=== PATIENT | female | born 1955 | race African-American/Black ===

== ENCOUNTER 2016-11-20 08:15 | Inpatient (IN) | payer OTHER, MEDICAID ==
--- NOTE | 2016-11-20 08:27 | CPEKG ---
Heart Rate: 83 RR Interval: 723 P-R Interval: 204 QRSD Interval: 92 QT Interval: 404 QTC Interval: 475 P [place]: 38 QRS [place]: -20 T Wave [place]: 63 EKG Severity - ABNORMAL ECG - EKG Impression: SINUS RHYTHM EKG Impression: LEFT VENTRICULAR HYPERTROPHY Electronically Signed By: Meredith Lemus 20-Nov-2016 14:56:56
[2016-11-20 08:56] LABS: % IMMATURE GRANULYOCYTES 2.1 % (0.0-1.1); ABSOLUTE IMMATURE GRANULOCYTES 0.11 10^3/uL (0.00-0.10); ADD DIFF? NO; ADD MORPH? NO; ADD SCAN? NO; ATYPICAL LYMPHOCYTE FLAG 10 (0-99); FRAGMENT RBC FLAG 0 (0-99); HEMATOCRIT 37.6 % (38.0-47.0); HEMOGLOBIN 12.6 g/dL (12.6-16.3); LEFT SHIFT FLG 20 (0-99); LIPEMIA HEMOLYSIS FLAG 80 (0-99); MEAN CELL HEMOGLOBIN 29.2 pg (27.9-34.1); MEAN CELL HEMOGLOBIN CONCENTR. 33.5 g/dL (32.4-36.7); MEAN CELL VOLUME 87.2 fL (81.5-99.8); MEAN PLATELET VOLUME 10.6 fL (8.7-11.7); PLATELET CLUMPS FLAG 10 (0-99); PLATELET COUNT 194 10^3/uL (150-400); RED BLOOD CELL COUNT 4.31 10^6/uL (4.18-5.33); RED CELL DISTRIBUTION WIDTH 13.1 % (11.5-15.2)
--- NOTE | 2016-11-20 08:56 | EDPHY ---
H & P Time Seen by Provider: 11/20/16 08:52 HPI/ROS: CHIEF COMPLAINT: Chest pain HISTORY OF PRESENT ILLNESS: This patient is a 61 year old woman, with a history of mild non-obstructive CAD, non-ischemic cardiomyopathy, and ICD placement in 2004, presenting with one week of constant substernal chest pain, radiating to the left axilla. It is associated with shortness of breath and increased lower extremity edema. She gets fatigued easily and dyspneic with exertion, which is not a recent change for her. Additionally notes that it feels that her ICD is very mildly "zapping" her today. These symptoms started to concern her and made her afraid today, which is why she presented to the emergency department. REVIEW OF SYSTEMS: Constitutional: No fever, no chills Eyes: No visual changes ENT: No sore throat Respiratory: Shortness of breath, No cough Cardiac: chest pain Gastrointestinal: No nausea, no vomiting, no abdominal pain Genitourinary: No hematuria, no dysuria Musculoskeletal: Lower extremity edema Skin: No rash Neurological: No headache, no numbness, no weakness Psychiatric: No depression Past Medical/Surgical History: Mild non-obstructive CAD by [facility] in 12/2012, non-ischemic cardiomyopathy (last echocardiogram in 04/2014 showed EF of 45%), ICD placement in 2004 (with EF of 10% at that time), hypertension, hyperlipidemia, mild pulmonary hypertension, chronic kidney disease (III), history of steroid-induced diabetes, diverticulitis, remote history of alcohol abuse Social History: Smokes cigarettes, 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 Smoking Status: Light smoker Physical Exam: General Appearance: Alert, no distress Eyes: Pupils equal and round, no conjunctival pallor or injection ENT, Mouth: Mucous membranes moist Neck: Normal inspection Respiratory: Lungs are clear to auscultation Cardiovascular: Regular rate and rhythm Gastrointestinal: Abdomen is soft and non- tender Neurological: A&O, nonfocal, normal gait Skin: Warm and dry, no rash Extremities: Nontender, no pedal edema Psychiatric: Mood and affect normal Constitutional: Initial Vital Signs Temperature (C) 36.9 C 11/20/16 08:29 Heart Rate 86 11/20/16 08:29 Respiratory Rate 16 11/20/16 08:29 Blood Pressure 156/120 H 11/20/16 08:29 O2 Sat (%) 94 11/20/16 08:29 O2 Delivery Mode Nasal Cannula O2 (L/minute) 2 Allergies/Adverse Reactions: ketorolac tromethamine [From Toradol] Allergy (Severe, Verified 12/11/15 06:01) tramadol Allergy (Verified 12/11/15 06:01) Home Medications: Medication Instructions Recorded Bumetanide [Bumex (*)] 0.5 mg PO DAILY@12 06/29/14 Carvedilol [Coreg (*)] 25 mg PO BID 06/29/14 Nitroglycerin [Nitrostat 0.4 mg 0.4 mg SL DAILY PRN 06/29/14 (*)] Simvastatin [Zocor 20 mg] 20 mg PO HS 06/29/14 amLODIPine BESYLATE [Norvasc 5 mg 5 mg PO HS 06/29/14 (*)] Aspirin EC [Aspirin EC 81 mg (*)] 81 mg PO DAILY PRN 11/20/16 Febuxostat [Uloric] 40 mg PO HS 11/20/16 Herbals/Supplements -Info Only 1 ea PO DAILY 11/20/16 Indomethacin [Indocin 25 mg (*)] 50 mg PO TID PRN 11/20/16 Lisinopril [Zestril 2.5 mg (*)] 2.5 mg PO HS 11/20/16 Medical Decision Making - Diagnostics EKG Interpretation: The 12 lead EKG was interpreted by myself. Sinus rhythm, rate 83, LVH. See hard copy and/or "tracemaster" electronic copy for interpretation. Imaging: Study: PA and Lateral Chest X-ray Indication: Chest pain Results: I viewed the images myself on the PACS system. My interpretation of the images is: No acute findings. The radiologist interpretation is: Radiographically unchanged from June 01, 2014 ED Course/Re-evaluation: Clinical presentation concerning for acute coronary syndrome and/or pacemaker malfunction. IV established. Placed on brake lining curer. [facility] has been called to interrogate her device. Plan to admit patient for chest pain and worsening CHF symptoms. 0945: I consulted with the hospitalist service. Dr. Mae accepts admission. Pacemaker interrogation reveals that the pacemaker is working normally. The patient has had a few runs of narrow complex tachycardia, otherwise normal. Differential Diagnosis: Differential diagnosis includes though it is not limited to pneumonia, pneumothorax, pulmonary embolism, aortic dissection, pericarditis, acute coronary syndrome. - Data Points Laboratory Results: Laboratory Results 11/20/16 08:45 11/21/16 04:15 11/21/16 04:15 Alkaline Phosphatase 47 IU/L (38-126) Medications Given: Discontinued Medications Furosemide (Lasix Injection) 10 mg IVP ONCE ONE Stop: 11/21/16 19:51 Last Admin: 11/21/16 20:30 Dose: 10 mg Departure - Departure Disposition: [facility] Inpatient Acute Clinical Impression: NICM (nonischemic cardiomyopathy) Congestive heart failure Qualifiers: Congestive heart failure type: systolic Congestive heart failure chronicity: chronic Qualifier Code: (I50.22) Chronic systolic (congestive) heart failure Chest pain Qualifiers: Chest pain type: other chest pain Qualifier Code: (R07.89) Other chest pain Condition: Fair Report Scribed for: Meredith Lemus Report Scribed by: Meena Adams Date of Report: 11/20/16 Time of Report: 08:56 Physician Review and Approval Statement: 11/20/16 08:56 Portions of this note were transcribed by a medical staff physician. I personally performed a history, physical exam, medical decision making, and confirmed accuracy of information the transcribed note.
[2016-11-20 09:15] LABS: ANION GAP 11 mEq/L (8-16); CARBON DIOXIDE 21 mEq/l (22-31); CHLORIDE 109 mEq/L (97-110); CREATININE 1.5 mg/dL (0.6-1.0); GLOMERULAR FILTRATION RATE 35; GLUCOSE 77 mg/dL (70-100); POTASSIUM 5.6 mEq/L (3.5-5.2); SODIUM 141 mEq/L (134-144); SPECIMEN HEMOLYSIS 151
[2016-11-20 09:26] LABS: TROPONIN I 0.025 ng/mL (0-0.034)
--- NOTE | 2016-11-20 09:32 | DX ---
PA Upright and Lateral Views of the Chest, at 8:50 a.m. Clinical History: 61-year-old female with chest pain, leg swelling, and the "pacemaker going off freq uently." Comparison Study: Chest, dated June 01, 2014. Findings: There is stable positioning of the unipolar left subclavian AICD pacemaker, terminating ove r the right ventricle. Telemetry monitoring lead lines are present. A lead shield was applied to the abdomen. The cardiac silhouette remains mildly enlarged. The plantar vasculature is normal. There is no focal alveolar consolidation, pleural effusion, peripheral interstitial edema, or pneumothorax. Th e osseous structures are age-appropriate. There is midcervical degenerative disk space narrowing with trace retrolisthesis. Impression: Radiographically unchanged from June 01, 2014.
[2016-11-20 11:23] LABS: INR 0.94 (0.83-1.16); PROTIME(PATIENT) 12.5 SEC (12.0-15.0)
[2016-11-20] MEDS ORDERED: ASPIRIN EC 81 MG TAB PO PRN (13:48)
[2016-11-20] MEDS ORDERED: NITROGLYCERIN 0.4 MG BTL SL PRN (13:48)
[2016-11-20] MEDS ORDERED: FUROSEMIDE 20 MG/2 ML VIAL IVP SCH (14:00)
--- NOTE | 2016-11-20 14:21 | CPEKG ---
Heart Rate: 78 RR Interval: 769 P-R Interval: 216 QRSD Interval: 90 QT Interval: 420 QTC Interval: 479 P [place]: 36 QRS [place]: -23 T Wave [place]: 74 EKG Severity - ABNORMAL ECG - EKG Impression: SINUS RHYTHM EKG Impression: MULTIFORM VENTRICULAR PREMATURE COMPLEXES EKG Impression: FIRST DEGREE AV BLOCK EKG Impression: PROBABLE LEFT ATRIAL ABNORMALITY EKG Impression: LVH WITH SECONDARY REPOLARIZATION ABNORMALITY Electronically Signed By: Majo Carbone 20-Nov-2016 16:48:07
--- NOTE | 2016-11-20 14:54 | ECHO ---
[id number] + + [address] : : [place] [address] : : [phone] + + Adult Echocardiographic Report + -----+ :Name: KATIE ALEXANDER DStudy Date: 11/20/2016 01:46 PM : : Hospital Admission Number: [id number] Location : 207: :: 1955 Gender: Female Height: 65 in : :Age: 61 yrs Race: BAA,Black or Delisa Weight: 155 lb : :Reason For Study: Chest pain/PMH NICM : : BSA: 1.8 meters2 : :History: Pacer : + -----+ MMode/2D Measurements & Calculations IVSd: 0.55 cm LVIDd: 6.8 cm FS: 16.9 % Ao root diam: LVPWd: 0.65 cm LVIDs: 5.6 cm EDV(Teich): 2.7 cm 238.3 ml LA dimension: ESV(Teich): 4.7 cm 156.5 ml EF(Teich): 34.3 % LVLd ap4: 7.9 cm SV(MOD-sp4): EDV(MOD-sp4): 24.0 ml 110.0 ml LVLs ap4: 7.2 cm ESV(MOD-sp4): 86.0 ml EF(MOD-sp4): 21.8 % Normal Measurement Values: + + :LVIDd (3.5-5.7cm) IVSd (0.6-1.1cm) LVPWd (0.6-1.1cm) Aortic Root (2.0-3.7cm)Left Atrium (1.5-4.0cm): :LV Vol(d) (76-115ml) LV Vol(s) (29-48ml) Ejec Fraction (50-65%)PV Dorian (0.6- 1.2m/s) TV Dorian (0.4-1.0m/s) : :MV E Dorian (0.8-1.0m/s)MV A Dorian (0.3-1.0m/s)LVOT Dorian (0.7-1.2m/s) Asc Ao Dorian ( 0.9-1.8m/s) : + + Doppler Measurements & Calculations MV E max dorian: 62.7 cm/sec Ao mean P.2 mmHg TR max dorian: 225.3 cm/sec MV A max dorian: 78.5 cm/sec Ao V2 mean: 93.8 cm/sec TR max P.3 mmHg MV E/A: 0.80 Ao V2 VTI: 26.4 cm RAP systole: 10.0 mmHg RVSP(TR): 30.3 mmHg Left Ventricle The left ventricle is moderate to severely dilated. There is mild concentric left ventricular hypertrophy. There is Doppler evidence for diastolic dysfunction. EF estimate is 30-35%. Left ventricular systolic function is moderately reduced. LV basal/mid inferoseptal and inferior avitia are akinetic. Right Ventricle The right ventricle is normal in size and function. There is a pacemaker lead in the right ventricle. Atria The left atrium is mildly dilated. Right atrial size is normal. The interatrial septum is intact with no evidence for an atrial septal defect. Mitral Valve The mitral valve is normal in structure and function. There is no evidence of mitral valve prolapse. There is no mitral valve stenosis. There is mild mitral regurgitation. Tricuspid Valve Normal tricuspid valve. There is trace to mild tricuspid regurgitation. Right ventricular systolic pressure is normal. Aortic Valve The aortic valve is trileaflet. The aortic valve opens well. There is no aortic stenosis. There is no aortic insufficiency. Pulmonic Valve The pulmonic valve is normal in structure and function. There is no pulmonic valvular regurgitation. Great Vessels The aortic root is normal size. Pericardium/Pleural Trivial anterior pericardial effusion. Conclusion A complete two-dimensional transthoracic echocardiogram was performed (2D, M-mode, Doppler and color flow Doppler). There is mild concentric left ventricular hypertrophy. There is Doppler evidence for diastolic dysfunction. LV basal/mid inferoseptal and inferior avitia are akinetic. EF estimate is 30-35%. The left ventricle is moderate to severely dilated. There is a pacemaker lead in the right ventricle. The left atrium is mildly dilated. There is mild mitral regurgitation. There is trace to mild tricuspid regurgitation. Right ventricular systolic pressure is normal. Trivial anterior pericardial effusion Left ventricular systolic function is moderately reduced. Final Reading Physician: Paulina Lamar signed on 11/20/2016 02:53 PM Ordering Physician: Patricia Richardson Performed By: Lianet Beyer, ARABELLACS
[2016-11-20 15:21] LABS: CREATINE KINASE-MB FRACTION 1.48 ng/mL (0-3.19); TROPONIN I 0.018 ng/mL (0-0.034)
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
[2016-11-20] MEDS: OXYCODONE/APAP 5/325 TAB PO PRN ×2 (17:10→23:33)
[2016-11-20] MEDS ORDERED: KETOROLAC 15 MG/1 ML SDV IVP SCH (18:00)
[2016-11-20 19:59] LABS: CREATINE KINASE-MB FRACTION 2.14 ng/mL (0-3.19); TROPONIN I < 0.012 ng/mL (0-0.034)
[2016-11-20] MEDS: CARVEDILOL 25 MG TAB PO SCH (20:34)
[2016-11-20] MEDS: amLODIPine BESYLATE 5 MG TAB PO SCH (20:35)
[2016-11-20] MEDS: LISINOPRIL 2.5 MG TAB PO SCH (20:35)
[2016-11-20] MEDS: Febuxostat [Uloric] 40 MG PO SCH (20:36)
[2016-11-21 01:22] LABS: TROPONIN I < 0.012 ng/mL (0-0.034)
[2016-11-21 05:53] LABS: ALANINE AMINOTRANSFERASE 26 IU/L (9-52); ALBUMIN 3.1 g/dL (3.5-5.0); ANION GAP 9 mEq/L (8-16); ASPARTATE AMINOTRANSFERASE 19 IU/L (14-46); BILIRUBIN,TOTAL 0.6 mg/dL (0.1-1.4); CALCIUM 8.8 mg/dL (8.5-10.4); CARBON DIOXIDE 23 mEq/l (22-31); CHLORIDE 107 mEq/L (97-110); CHOLESTEROL 209 mg/dL (140-220); CHOLESTEROL/HDL RATIO 4.02 RATIO (1.00-4.44); CREATININE 1.5 mg/dL (0.6-1.0); GLOMERULAR FILTRATION RATE 35; GLUCOSE 114 mg/dL (70-100); HIGH DENSITY LIPOPROTEIN 52 mg/dL (40-85); LDL/HDL RATIO 1.85 RATIO (1.00-3.22); LOW DENSITY LIPOPROTEIN 96 mg/dL (80-100); NON-HIGH DENSITY LIPOPROTEIN 157 mg/dL (90-129); POTASSIUM 4.6 mEq/L (3.5-5.2); SODIUM 139 mEq/L (134-144); TOTAL PROTEIN 6.4 g/dL (6.3-8.2); TRIGLYCERIDE 306 mg/dL (35-135); VERY LOW DENSITY LIPOPROTEINS 61 mg/dL (8-25)
[2016-11-21 05:54] LABS: CREATINE KINASE-MB FRACTION 1.57 ng/mL (0-3.19)
--- NOTE | 2016-11-21 08:40 | CPEKG ---
Heart Rate: 57 RR Interval: 1053 P-R Interval: 236 QRSD Interval: 90 QT Interval: 480 QTC Interval: 468 P [place]: 50 QRS [place]: -19 T Wave [place]: 24 EKG Severity - ABNORMAL ECG - EKG Impression: SINUS RHYTHM EKG Impression: FIRST DEGREE AV BLOCK EKG Impression: LEFT VENTRICULAR HYPERTROPHY EKG Impression: ANTERIOR Q WAVES, POSSIBLY DUE TO LVH Electronically Signed By: Roland Barnard 21-Nov-2016 10:53:38
[2016-11-21] MEDS ORDERED: REGADENOSON 0.4 MG/5 ML SYR IVP ONE (09:31)
[2016-11-21] MEDS: CARVEDILOL 25 MG TAB PO SCH ×2 (10:38→20:33)
[2016-11-21] MEDS: ROSUVASTATIN CALCIUM 10 MG TAB PO SCH (10:39)
[2016-11-21] MEDS: ENOXAPARIN 40 MG/0.4 ML SYR SC SCH (10:39)
--- NOTE | 2016-11-21 12:43 | HOSPPROG ---
Hospitalist Progress Note Assessment/Plan: 61 yo F w NICM here w cp syndrome, mild systolic heart failure hyperkalemia: suspect 2/2 apple cider vinegar she has been taking as natural diuretic resolved CV: on diuretics bnp near baseline known systolic dysfunction another day IN diuretics chest pain: "electric" per her AICD did not discharge, pre repport no rash to suggest zoster trop indet then neg lexiscan pending renal: cr at baseline sCHF: on pao and carvedilol proph: enox dispo: inpt Subjective: no events tele (interp by me) Objective: Vital Signs Temp Pulse Resp BP Pulse Ox 36.6 C 65 18 120/79 98 11/21/16 08:00 11/21/16 08:00 11/21/16 08:00 11/21/16 08:00 11/21/16 08:00 Laboratory Results 11/21/16 04:15 11/20/16 11/21/16 11/22/16 05:59 05:59 05:59 Intake Total 900 Output Total 1500 Balance -600 PT 12.5 SEC (12.0-15.0) 11/20/16 08:45 INR 0.94 (0.83-1.16) 11/20/16 08:45 - Physical Exam Constitutional: no apparent distress, appears nourished Eyes: PERRL, anicteric sclera Ears, Nose, Mouth, Throat: moist mucous membranes, hearing normal Cardiovascular: regular rate and rhythym, no murmur, rub, or gallop Respiratory: no respiratory distress, no rales or rhonchi Gastrointestinal: normoactive bowel sounds, soft, non-tender abdomen Genitourinary: No rojo in urethra Skin: warm, normal color Musculoskeletal: full muscle strength, no muscle tenderness Neurologic: AAOx3 Psychiatric: interacting appropriately ICD10 Worksheet Patient Problems: Problems Problem Status Diagnosed Chest pain Acute Congestive heart failure Acute NICM (nonischemic cardiomyopathy) Acute Cardiomyopathy due to hypertension Acute Hypertension Acute Ventricular arrhythmia Acute
--- NOTE | 2016-11-21 19:02 | NM ---
Nuclear Medicine Myocardial Perfusion Stress and Rest Imaging made available for review 11/21/2016 at 1 848 hours History: Chest pain. Comparison: Myocardial perfusion scan December 19, 2012 Technique: Rest imaging is performed after the intravenous administration of 10.8 mCi of technetiu m 99m labeled sestamibi on November 21, 2016 at 914. Stress imaging is performed after the intravenous administration of 26.8 mCi of technetium 99m labeled sestamibi on November 21, 2016 at 957. Resting h eart rate was 60 and maximal heart rate of 85 was attained. 0.4 mg of Lexiscan was administered with out complication. Images are reviewed on the independent nuclear medicine work station, computer sana lysis is performed. Findings: The left ventricular ejection fraction is 45% (unchanged). A large inferolateral perfusio n defect is fixed. There is a small fixed anteroseptal defect near the apex. Comparison of these infa rcts with the previous study is limited by variation in scanner. There is no evidence of reversible h ypoperfusion to suggest ischemia. Hypokinesis is again noted, most prominent in the septum. Impression: 1. Low left ventricular ejection fraction of 45%. 2. Inferolateral and anteroseptal infarcts with no definite evidence of ischemia. 3. No focal wall motion abnormalities. Findings discussed with Trena the patient's nurse 11/21/2016 at 1854 hours.
--- NOTE | 2016-11-21 19:33 | CPR ---
[f rep st] NONINVASIVE CARDIAC PROCEDURE REPORT DATE OF PROCEDURE: 11/21/2016 PROCEDURE: Nuclear Lexiscan stress test. REASON FOR TEST: 1. Chest pain. 2. Known heart disease. 3. Implantable cardioverter-defibrillator in place. FINDINGS: Resting EKG shows first-degree A-V block. Probable inferior infarct previously. No ectop y noted. She is in sinus rhythm. Resting blood pressure 118/88, heart rate 60, oxygen saturation 94 %. Prior to test she had mild chest discomfort which has been continuous since admission. STRESS PORTION: Lexiscan was infused rapidly followed by saline flush. Cardiolite was then injected followed by saline flush. She did experience abdominal discomfort/nausea after the injection. Ther e were no EKG changes. Maximal heart rate was 85, maximal blood pressure with injection of 128/82. No ectopy or ischemic changes. RECOVERY: She spontaneously recovered after caffeine was given. Resting blood pressure 122/82, rest ing heart rate 76, oxygen saturation 95%. No EKG changes. At this time, she currently is stable for imaging. /[id number]/MODL
[2016-11-21] MEDS ORDERED: FUROSEMIDE 20 MG/2 ML VIAL IVP ONE (19:50)
[2016-11-21] MEDS: LISINOPRIL 2.5 MG TAB PO SCH (20:31)
[2016-11-21] MEDS: amLODIPine BESYLATE 5 MG TAB PO SCH (20:33)
[2016-11-21] MEDS: Febuxostat [Uloric] 40 MG PO SCH (20:34)
[2016-11-21] MEDS: OXYCODONE/APAP 5/325 TAB PO PRN (20:48)
[2016-11-21 20:49] LABS: ALKALINE PHOSPHATASE 47 IU/L (38-126)
[2016-11-22 05:21] LABS: ANION GAP 9 mEq/L (8-16); CALCIUM 9.2 mg/dL (8.5-10.4); CARBON DIOXIDE 22 mEq/l (22-31); CHLORIDE 106 mEq/L (97-110); CREATININE 1.3 mg/dL (0.6-1.0); GLOMERULAR FILTRATION RATE 42; GLUCOSE 107 mg/dL (70-100); MAGNESIUM 2.2 mg/dL (1.6-2.3); POTASSIUM 4.8 mEq/L (3.5-5.2); SODIUM 137 mEq/L (134-144)
[2016-11-22] MEDS ORDERED: PNEUMOCOCCAL 0.5ML VACCINE VIAL IM ONE (08:45)
--- NOTE | 2016-11-22 09:12 | CPEKG ---
Heart Rate: 64 RR Interval: 938 P-R Interval: 188 QRSD Interval: 94 QT Interval: 456 QTC Interval: 471 P [place]: 39 QRS [place]: -20 T Wave [place]: 26 EKG Severity - ABNORMAL ECG - EKG Impression: SINUS RHYTHM EKG Impression: LEFT VENTRICULAR HYPERTROPHY Electronically Signed By: Roland Barnard 22-Nov-2016 13:14:11
[2016-11-22] MEDS: CARVEDILOL 25 MG TAB PO SCH (09:15)
[2016-11-22] MEDS: ROSUVASTATIN CALCIUM 10 MG TAB PO SCH (09:15)
[2016-11-22] MEDS: ENOXAPARIN 40 MG/0.4 ML SYR SC SCH (09:16)
[2016-11-22 13:46] VITALS: BP 114/81; PULSE 73; RESP 20; TEMP 98; O2SAT 96
--- NOTE | 2016-11-22 14:33 | HOSPPROG ---
Hospitalist Progress Note Assessment/Plan: 61 yo F w NICM here w cp syndrome, mild systolic heart failure hyperkalemia: suspect 2/2 apple cider vinegar she has been taking as natural diuretic resolved CV: on diuretics bnp near baseline known systolic dysfunction another day IN diuretics chest pain: "electric" per her AICD did not discharge, pre repport no rash to suggest zoster trop indet then neg lexiscan neg for new ischemia renal: cr at baseline sCHF: on pao and carvedilol proph: enox dispo: home today Subjective: feels better. cp unchanged. no rash Objective: Vital Signs Temp Pulse Resp BP Pulse Ox 36.7 C 73 20 114/81 H 96 11/22/16 12:00 11/22/16 12:00 11/22/16 12:00 11/22/16 12:00 11/22/16 12:00 Laboratory Results 11/22/16 04:20 11/21/16 11/22/16 11/23/16 05:59 05:59 05:59 Intake Total 1650 640 Output Total 1900 Balance 1650 -1260 PT 12.5 SEC (12.0-15.0) 11/20/16 08:45 INR 0.94 (0.83-1.16) 11/20/16 08:45 - Physical Exam Constitutional: no apparent distress, appears nourished Eyes: PERRL, anicteric sclera Ears, Nose, Mouth, Throat: moist mucous membranes, hearing normal Cardiovascular: regular rate and rhythym, no murmur, rub, or gallop Respiratory: no respiratory distress, no rales or rhonchi Gastrointestinal: normoactive bowel sounds, soft, non-tender abdomen Genitourinary: No rojo in urethra Skin: warm Musculoskeletal: full muscle strength Neurologic: AAOx3 ICD10 Worksheet Patient Problems: Problems Problem Status Diagnosed Chest pain Acute Congestive heart failure Acute NICM (nonischemic cardiomyopathy) Acute Cardiomyopathy due to hypertension Acute Hypertension Acute Ventricular arrhythmia Acute
--- NOTE | 2016-11-22 18:17 | GDS ---
[f rep st] DISCHARGE SUMMARY DISCHARGE DIAGNOSES: 1. Mild acute systolic heart failure exacerbation. 2. Chest pain of uncertain etiology. HOSPITAL COURSE: Please see admission history and physical by Patricia Richardson. The patient presented on the afternoon of the with chest pain. She also reported some electric symptoms. Her AICD was interrogated and found to have no evidence of discharges. She had an echocardiogram showing an EF o f 30-35% with inferoseptal and inferior avitia that were akinetic. Her last echocardiogram here was i n April 2014 with similar wall motion abnormalities. She underwent Lexiscan, which showed low LVEF of 45%, inferolateral and anteroseptal infarcts with no definite evidence of ischemia. When compared w ith prior in 2012, this is similar. The patient was diuresed and negative about 1800 cc while here with improvement of her symptoms. The re was an electric nature of her pain. She never had a rash or developed zoster. It had been going on for a number of days, so it would have established itself if that were the case. She was discharged home with essentially no change in medications, other than to substitute 20 mg of Lasix for 0.5 of Bumex and to change her statin from atorvastatin to Crestor. /[id number]/MODL
== END 2016-11-22 17:24 | disposition home or self-care (01) | DRG 291 ==
LOC: EDUNIT# → F2W 12:58 → OBSVTOIN 11-21 12:42
PROVIDERS: ADMIT Internal Medicine; ATTEND Internal Medicine
DX: I13.0 Hypertensive heart and chronic kidney disease with heart failure and stage 1 through stage 4 chronic kidney disease, or unspecified chronic kidney disease (principal); I50.21 Acute systolic (congestive) heart failure; I42.9 Cardiomyopathy, unspecified; R07.9 Chest pain, unspecified; I25.10 Atherosclerotic heart disease of native coronary artery without angina pectoris; E78.5 Hyperlipidemia, unspecified; I27.2 Other secondary pulmonary hypertension; N18.3 Chronic kidney disease, stage 3 (moderate); E87.5 Hyperkalemia; Z95.810 Presence of automatic (implantable) cardiac defibrillator; Z72.0 Tobacco use; Z23 Encounter for immunization
CPT/HCPCS: A9500; G0009; G0378; J1650; J2785

== ENCOUNTER 2017-01-27 09:44 | Inpatient (IN) | payer OTHER, MEDICAID ==
[2017-01-27] MEDS ORDERED: IPRATROPIUM/ALBUTEROL 3 ML DEYVIAL ONE (10:12)
[2017-01-27] MEDS ORDERED: IPRATROPIUM/ALBUTEROL 3 ML DEYVIAL IH ONE (10:25)
--- NOTE | 2017-01-27 10:40 | EDPHY ---
H & P Stated Complaint: Thinks she got sick going in and out of walk in cooler;cough - Personal History Current Tetanus Diphtheria and Acellular Pertussis (TDAP): Yes - Medical/Surgical History Hx Asthma: No Hx Chronic Respiratory Disease: No Hx Diabetes: Yes Hx Cardiac Disease: Yes Hx Renal Disease: Yes Hx Cirrhosis: No Hx Alcoholism: No Hx HIV/AIDS: No Hx Splenectomy or Spleen Trauma: No Other PMH: Congestive heart failure, chronic renal insufficiency stage III, diabetes, hypertension, on demand pacer/defibrillator, rheumatoid arthritis, gout, multiple falls, chronic pain - Social History Smoking Status: Current every day smoker Time Seen by Provider: 01/27/17 10:29 HPI/ROS: CHIEF COMPLAINT: Cough "I hear gurgling in my lungs" HISTORY OF PRESENT ILLNESS: 61-year-old female with medical history significant for nonischemic cardiomyopathy, hypertension, chronic kidney disease , steroid induced diabetes, implanted cardiac defibrillator, took a taxi to the ER complaining of 4 days of cough which she attributes to walking in and out of the cooler repeatedly at work. 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 The cough is nonproductive. She has concurrent nasal sinus congestion. No sore throat. No headache. No nuchal rigidity. No back or flank pain. No chest pain. No dyspnea. No urinary abnormality. PRIMARY CARE PROVIDER: Keturah Kat. primary desk assistant: Brock Beckham REVIEW OF SYSTEMS: A ten point review of systems was performed and is negative with the exception of the items mentioned in the HPI PAST MEDICAL & SURGICAL HISTORY: Nonischemic cardiomyopathy. Hypertension. Chronic kidney disease. Steroid induced diabetes. Implanted cardiac defibrillator. SOCIAL HISTORY: Intermittent tobacco smoking. 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 PHYSICAL EXAM (Prior to examination, patient consented to physical exam, hands were washed and my usual and customary physical exam procedures followed) 1) GENERAL: Well-developed, well-nourished, alert and oriented. Appears to be in no acute distress. Speaking full sentences. 2) HEAD: Normocephalic, atraumatic 3) HEENT: Pupils equal, round, reactive to light bilaterally. Sclera anicteric. Nasopharynx, oropharynx, clear, no lesions. No tonsillar enlargement tonsillar exudate Ears bilaterally with normal tympanic membranes. 4) NECK: Full range of motion, no meningeal signs. 5) LUNGS: Speaking full sentences. No retractions or accessory muscle use. Bilateral rales. 6) HEART: Regular rate and rhythm, no murmur, no heave, no gallop. 7) ABDOMEN: No guarding, no rebound, no focal tenderness, negative McBurney's, negative Sorensen's, negative Rovsing's, negative peritoneal sign, 8) MUSCULOSKELETAL: Moving all extremities, no focal areas of tenderness, no obvious trauma. No peripheral edema or discoloration. 9) BACK: No CVA tenderness, no midline vertebral tenderness, no fluctuance, no step-off, no obvious trauma, no visual or palpable abnormality. 10) SKIN: No rash, no petechiae. 11) Psychiatric: Patient is oriented X 3, there is no agitation. DIFFERENTIAL DIAGNOSIS: in no particular include but limited to pneumonia, acute CHF exacerbation, mi, PE (Keanu,Komal Heather) Constitutional: Initial Vital Signs Temperature (C) 37.2 C 01/27/17 09:46 Heart Rate 80 01/27/17 09:46 Respiratory Rate 18 01/27/17 09:46 Blood Pressure 100/54 L 01/27/17 09:46 O2 Sat (%) 94 01/27/17 09:46 O2 Delivery Mode Room Air Allergies/Adverse Reactions: ketorolac tromethamine [From Toradol] Allergy (Intermediate, Verified 01/27/17 09:50) tramadol Allergy (Intermediate, Verified 01/27/17 09:50) lips and legs "puff up" Home Medications: Medication Instructions Recorded Carvedilol [Coreg (*)] 25 mg PO BID 06/29/14 amLODIPine BESYLATE [Norvasc 5 mg 5 mg PO HS 06/29/14 (*)] Aspirin EC [Aspirin EC 81 mg (*)] 81 mg PO DAILY PRN 11/20/16 Febuxostat [ULORIC] 40 mg PO HS 11/20/16 Herbals/Supplements -Info Only 1 ea PO DAILY 11/20/16 Indomethacin [Indocin 25 mg (*)] 50 mg PO TID PRN 11/20/16 Lisinopril [Zestril 2.5 mg (*)] 2.5 mg PO HS 11/20/16 Rosuvastatin Calcium [Crestor] 10 mg PO DAILY #30 tab 11/22/16 Furosemide [Lasix 20 MG (*)] 20 mg PO DAILY PRN 01/27/17 Medical Decision Making - Diagnostics Imaging: Imaging Impressions Chest X-Ray 01/27/17 10:25 Impression: Impending/early CHF. ED Course/Re-evaluation: 10:45 a.m.: Old medical records reviewed. Discussed case with Dr. Radames Stokes in ER. 12:01 p.m.: Patient's troponin is elevated with slight elevation of BNP. Discussed case Dr. Radames Stokes. Recommended admission to the hospital. She is agreeable with this. 12:20 p.m.: Consultation with hospitalist Kaitlyn, admit to Dr. Myles (Komal Colunga) I did not see this patient while she was in the emergency department. However her care was discussed with the PA while the patient was in the department. I agree with treatment plan and management (Radames Stokes) - Data Points Laboratory Results: Laboratory Results 01/27/17 11:10 01/27/17 11:10 01/27/17 01/27/17 01/27/17 11:55 11:10 11:10 WBC 5.53 10^3/uL 10^3/uL (3.80-9.50) RBC 4.00 10^6/uL L 10^6/uL (4.18-5.33) Hgb 11.5 g/dL L g/dL (12.6-16.3) Hct 35.9 % L % (38.0-47.0) MCV 89.8 fL fL (81.5-99.8) MCH 28.8 pg pg (27.9-34.1) MCHC 32.0 g/dL L g/dL (32.4-36.7) RDW 15.4 % H % (11.5-15.2) Plt Count 136 10^3/uL L 10^3/uL (150-400) MPV 9.8 fL fL (8.7-11.7) Neut % (Auto) 73.6 % % (39.3-74.2) Lymph % (Auto) 17.0 % % (15.0-45.0) Emmet % (Auto) 8.0 % % (4.5-13.0) Eos % (Auto) 0.5 % L % (0.6-7.6) Baso % (Auto) 0.2 % L % (0.3-1.7) Nucleat RBC Rel Count 0.0 % % (0.0-0.2) Absolute Neuts (auto) 4.07 10^3/uL 10^3/uL (1.70-6.50) Absolute Lymphs (auto) 0.94 10^3/uL L 10^3/uL (1.00-3.00) Absolute Monos (auto) 0.44 10^3/uL 10^3/uL (0.30-0.80) Absolute Eos (auto) 0.03 10^3/uL 10^3/uL (0.03-0.40) Absolute Basos (auto) 0.01 10^3/uL L 10^3/uL (0.02-0.10) Absolute Nucleated RBC 0.00 10^3/uL 10^3/uL (0-0.01) Immature Gran % 0.7 % % (0.0-1.1) Immature Gran # 0.04 10^3/uL 10^3/uL (0.00-0.10) Sodium 139 mEq/L mEq/L (134-144) Potassium 5.3 mEq/L H mEq/L (3.5-5.2) Chloride 111 mEq/L H mEq/L (97-110) Carbon Dioxide 16 mEq/l L mEq/l (22-31) Anion Gap 12 mEq/L mEq/L (8-16) BUN 36 mg/dL H mg/dL (7-23) Creatinine 2.0 mg/dL H mg/dL (0.6-1.0) Estimated GFR 25 Glucose 120 mg/dL H mg/dL (70-100) Calcium 8.8 mg/dL mg/dL (8.5-10.4) Troponin I 0.038 ng/mL H ng/mL (0-0.034) NT-Pro-B Natriuret Pep 301 pg/mL H pg/mL (0-125) Influenza Typ A,B (DFA) NEGATIVE FOR FLU (NEGATIVE) Medications Given: Discontinued Medications Albuterol/Ipratropium (Duoneb) 3 ml IH EDNOW ONE Stop: 01/27/17 10:26 Last Admin: 01/27/17 11:00 Dose: 3 ml Throat Lozenges (Cepacol Lozenge) 1 ea PO EDNOW ONE Stop: 01/27/17 11:22 Last Admin: 01/27/17 11:22 Dose: 1 ea Departure - Departure Disposition: [facility] Acute Clinical Impression: Elevated troponin I level Congestive heart failure Qualifiers: Congestive heart failure type: systolic Congestive heart failure chronicity: acute on chronic Qualified Code(s): I50.23 - Acute on chronic systolic ( congestive) heart failure Condition: Fair
[2017-01-27] MEDS ORDERED: CEPACOL LOZENGE PO ONE ×2 (11:17→11:21)
[2017-01-27 11:21] LABS: % IMMATURE GRANULYOCYTES 0.7 % (0.0-1.1); ABSOLUTE IMMATURE GRANULOCYTES 0.04 10^3/uL (0.00-0.10); ADD DIFF? NO; ADD MORPH? NO; ADD SCAN? NO; ATYPICAL LYMPHOCYTE FLAG 0 (0-99); FRAGMENT RBC FLAG 0 (0-99); HEMATOCRIT 35.9 % (38.0-47.0); HEMOGLOBIN 11.5 g/dL (12.6-16.3); LEFT SHIFT FLG 70 (0-99); LIPEMIA HEMOLYSIS FLAG 80 (0-99); MEAN CELL HEMOGLOBIN 28.8 pg (27.9-34.1); MEAN CELL VOLUME 89.8 fL (81.5-99.8); MEAN PLATELET VOLUME 9.8 fL (8.7-11.7); PLATELET CLUMPS FLAG 0 (0-99); PLATELET COUNT 136 10^3/uL (150-400); RED CELL DISTRIBUTION WIDTH 15.4 % (11.5-15.2)
[2017-01-27 11:44] LABS: ANION GAP 12 mEq/L (8-16); CALCIUM 8.8 mg/dL (8.5-10.4); CARBON DIOXIDE 16 mEq/l (22-31); CHLORIDE 111 mEq/L (97-110); GLOMERULAR FILTRATION RATE 25; GLUCOSE 120 mg/dL (70-100); POTASSIUM 5.3 mEq/L (3.5-5.2); SODIUM 139 mEq/L (134-144)
--- NOTE | 2017-01-27 11:54 | CPEKG ---
Heart Rate: 77 RR Interval: 779 P-R Interval: 160 QRSD Interval: 88 QT Interval: 444 QTC Interval: 503 P Jay: 1 QRS Jay: -14 T Wave Jay: 30 EKG Severity - BORDERLINE ECG - EKG Impression: SINUS RHYTHM EKG Impression: BORDERLINE PROLONGED QT INTERVAL Electronically Signed By: Radames Stokes 27-Jan-2017 15:31:05
[2017-01-27 11:56] LABS: TROPONIN I 0.038 ng/mL (0-0.034)
[2017-01-27] MEDS ORDERED: ALBUTEROL 3 ML DEYVIAL IH PRN (13:22)
[2017-01-27] MEDS ORDERED: ONDANSETRON 4 MG/2 ML VIAL IVP PRN (13:22)
[2017-01-27] MEDS ORDERED: ONDANSETRON DISINTEGRATING 4 MG TAB PO PRN (13:22)
[2017-01-27] MEDS ORDERED: GUAIFENESIN/DM 10 ML UDCUP PO PRN (15:27)
[2017-01-27] MEDS ORDERED: BENZONATATE 100 MG CAP PO PRN (15:27)
--- NOTE | 2017-01-27 16:18 | GHP ---
[f rep st] HISTORY AND PHYSICAL DATE OF ADMISSION: 01/27/2017 CHIEF COMPLAINT: Cough and fatigue. HISTORY OF PRESENT ILLNESS: The patient is a 61-year-old female with history of nonischemic cardiom yopathy with an ICD placement in 2004 due to a low ejection fraction of 10% at that time, continued tobacco use, hypertension and chronic kidney disease who presents to the emergency department with u pper respiratory symptoms including cough, congestion, and shortness of breath. Workup in the emerg ency department revealed normal chest x-ray, normal BNP but a very mildly elevated troponin. She st ates she began having upper respiratory symptoms approximately 5 days ago including cough, sore thro at, and nasal congestion. Her cough is frequent and productive. She denies chest pain or pressure though she does feel a bit more short of breath. She does follow her daily weights and she states s he has lost 15 pounds over the past 3 months. She has been trying to eat healthier and lose weight. Since she became ill 5 days ago, she has had decreased oral intake. She denies lower extremity ed juaquin. She uses Lasix on a p.r.n. basis and states she generally avoids it as it causes cramping. Leticia kelley also complains of diarrhea up to 6 times a day; she describes this as watery stool. She denies hem atochezia or melenic stools. She denies urinary symptoms or abdominal pain. She has continued to f eel poorly and presented to the emergency department for evaluation. Due to her elevated troponin, she was admitted to the hospital. PAST MEDICAL HISTORY: 1. Nonischemic cardiomyopathy. Her most recent echocardiogram was in November of 2016 which showed an ejection fraction of 30% to 35%. This is an improvement from her initial EF of 10%. 2. Hypertension. 3. Hyperlipidemia. 4. Tobacco abuse. 5. Chronic kidney disease, stage 3. 6. History of steroid-induced diabetes. 7. History of diverticulitis. 8. History of colon polyps. 9. History of gout. PAST SURGICAL HISTORY: Hand and foot surgeries. She has a history of polypectomy. SOCIAL HISTORY: The patient is single. She lives independently. She continues to smoke less than half a pack a day. She denies any alcohol or drug use. FAMILY HISTORY: Positive for hypertension, heart disease. MEDICATIONS: Please see [facility] for complete updated outpatient medication list. ALLERGIES: Include Toradol and tramadol. REVIEW OF SYSTEMS: A 10-point review of systems was performed and is negative except as per HPI. OBJECTIVE: VITAL SIGNS: On arrival to the emergency department, temperature was 37.2, blood pressu re 100/54, heart rate 80, respiratory rate 18. She was 94% on room air, although she is now 93% on 2 L. GENERAL: The patient is awake, alert, oriented. No acute distress. HEENT: Head is atraumatic , normocephalic. Pupils equal, round, and reactive to light. Extraocular muscles are intact. Orop harynx is clear. Mucous membranes are slightly dry. NECK: Supple. She has 4-6 cm of jugular kirill ous distention. HEART: Regular rate and rhythm. LUNGS: Faint bibasilar crackles. ABDOMEN: Soft , nondistended, nontender with normoactive bowel tones. EXTREMITIES: Without cyanosis, clubbing, o r edema. NEUROLOGIC: Grossly nonfocal. LABORATORY DATA: CBC reveals normal white blood cell count. Hemoglobin 11.5, platelets are slightl y low at 136. Basic metabolic panel reveals a sodium of 139, potassium 5.3, chloride 111, bicarb 16, BUN 36, creatinine 2.0. Blood sugar 120. Troponin is minimally elevated at 0.038. BNP is 301 which is the lowest it has ever been in 10 years. Her highest BNP was 17,000. Most recently her BNPs were in the upper 400s. Chest x-ray personally reviewed and interpreted: There is mild cardiomegaly with subtle Lai B li carolyn without focal consolidation. EKG shows normal sinus rhythm without ST-segment or T-wave changes suggesting acute ischemia. ASSESSMENT AND PLAN: The patient is a 61-year-old female with history of nonischemic cardiomyopathy , who presents to the emergency department with upper respiratory symptoms. 1. Cough and shortness of breath. I suspect a viral upper respiratory infection and bronchitis pic ture. Her volume status is a little difficult to sort out. She has no edema, her weight is down an d her BNP is just minimally elevated and is certainly lower than her previous levels. In addition, her creatinine is elevated in the setting of decreased oral intake and general malaise. My overall impression is that she is a bit volume down despite a mildly abnormal appearance of her chest x-ray. She does not appear to be in acute decompensated heart failure and her blood pressure is slightly low at 85/65 on arrival to the floor. I am going to give her some gentle IV fluid hydration at 75 a n hour with close monitoring for signs of tachypnea or worsening heart failure symptoms. If she raphael s need diuresis, I would consider an albumin/Lasix approach. Will provide supportive care with cordell breaux, antitussive therapy, supplemental oxygen as needed. I am going to go ahead and start her on azithromycin. 2. Diarrhea. She has no fevers or elevated white count. We will check a GI pathogen panel to rule out C difficile or other viral etiologies. 3. Elevated troponin. This is very mild and may be due to strain, given her upper respiratory symp toms. Her EKG is nonischemic and she is chest pain-free. Thus my suspicion for acute coronary synd vanita is low. We will trend her troponin and, if it is on the rise, would consider cardiology consul t. 4. Hyperkalemia. She may be a bit hemoconcentrated. I am going to gently hydrate her and recheck th is in the morning. 5. Acute kidney injury in the setting of chronic kidney disease. Her baseline creatinine is around 1.5. Her creatinine on arrival was 2. I will check a urine sodium and urine creatinine to calculat e bradly FENA, although I suspect she may be prerenal. As above, I am going to gently hydrate her with c lose monitoring of her respiratory symptoms. 6. Non-anion gap metabolic acidosis in the setting of chronic kidney disease. We will give her huy e oral sodium bicarbonate which will also help lower her potassium along with IV fluids and will rec heck this tomorrow. 7. Anemia. This is chronic. Her hemoglobin is at or above her baseline. 8. Code status. Patient is full code. 9. Disposition. Patient is observation status. If her symptoms are improved, she may be a leonora te for discharge tomorrow. /[id number]/MODL
[2017-01-27] MEDS: ASPIRIN EC 81 MG TAB PO SCH (17:22)
[2017-01-27] MEDS: AZITHROMYCIN 250 MG TAB PO SCH (17:22)
[2017-01-27] MEDS: NS 1,000 ML IV SCH (17:22)
[2017-01-27] MEDS: SODIUM BICARBONATE 650 MG TAB PO SCH ×2 (17:22→22:42)
[2017-01-27] MEDS: ROSUVASTATIN CALCIUM 10 MG TAB PO SCH (17:22)
[2017-01-27] MEDS ORDERED: amLODIPine BESYLATE 5 MG TAB PO SCH (21:00)
[2017-01-27] MEDS ORDERED: CARVEDILOL 25 MG TAB PO SCH (21:00)
[2017-01-27] MEDS: ACETAMINOPHEN 325 MG TAB PO PRN (21:08)
[2017-01-27] MEDS ORDERED: LOPERAMIDE HCL 2 MG CAP PO PRN (21:51)
[2017-01-27] MEDS: oxyCODONE IR 5 MG TAB PO PRN (23:47)
[2017-01-28] MEDS: oxyCODONE IR 5 MG TAB PO PRN ×3 (05:04→21:19)
[2017-01-28 05:38] LABS: ANION GAP 9 mEq/L (8-16); CALCIUM 8.4 mg/dL (8.5-10.4); CARBON DIOXIDE 16 mEq/l (22-31); CHLORIDE 112 mEq/L (97-110); GLOMERULAR FILTRATION RATE 16; GLUCOSE 110 mg/dL (70-100); MAGNESIUM 2.1 mg/dL (1.6-2.3); POTASSIUM 5.1 mEq/L (3.5-5.2); SODIUM 137 mEq/L (134-144)
[2017-01-28] MEDS: NS 1,000 ML IV SCH (07:44)
[2017-01-28] MEDS: ASPIRIN EC 81 MG TAB PO SCH (08:20)
[2017-01-28] MEDS: AZITHROMYCIN 250 MG TAB PO SCH (08:21)
[2017-01-28] MEDS: SODIUM BICARBONATE 650 MG TAB PO SCH ×3 (08:21→21:12)
[2017-01-28] MEDS: ROSUVASTATIN CALCIUM 10 MG TAB PO SCH (08:22)
--- NOTE | 2017-01-28 10:33 | SOAPPROG ---
SOAP Progress Note Assessment/Plan: Assessment: Cardiology consult performed and dictated. 61 y/o AA woman with chronic non-ischemic systolic CHF with LVEF 33%, AICD and COPD with active tobaccoism and medical non-compliance. Admitted with chills, cough and not feeling well. Feels better compared to yesterday. Past cardiac testing: cath 12/26 normal coronaries, echo 12/02 LVEF 33%, normal RVEF, mild MR and TR and estimated normal PA pressures, cardiolite stress test 12/02 showed LVEF 45% with no ischemia. On my exam: JVP to 7-8cm, lungs: poor E:A ratio consistent with COPD and mild wheezing, distant RRR without S3, no edema. Clinically I think she has URI and hypovolemic and hypotensive. REC: 1)decrease Coreg to 6.25mg PO BID and hold for SBP < 110 2)no lisinopril, amlodipine or lasix 3)IVF: NS at 125cc/hr. 4)recheck BMP at 5pm today. If renal function continuing to deteriorate, check echo and renal consult. 5)smoking cessation. 6)discussed with her better cardiology clinic follow ups. Thanks. will follow with you. 01/28/17 10:27 Objective: Vital Signs Temp Pulse Resp BP Pulse Ox 36.7 C 76 20 91/56 L 98 01/28/17 04:00 01/28/17 08:00 01/28/17 08:00 01/28/17 08:00 01/28/17 08:00 Microbiology 01/27/17 17:45 Gastrointestinal Tract Panel (PCR) - Final Stool No Organism Detected Laboratory Results 01/28/17 04:58 01/27/17 01/28/17 01/29/17 05:59 05:59 05:59 Intake Total 1250 Output Total 260 Balance 990 ICD10 Worksheet Patient Problems: Problems Problem Status Onset Congestive heart failure Acute Elevated troponin I level Acute Cardiomyopathy due to hypertension Acute Chest pain Acute Hypertension Acute NICM (nonischemic cardiomyopathy) Acute Ventricular arrhythmia Acute
--- NOTE | 2017-01-28 10:50 | HOSPPROG ---
Hospitalist Progress Note Assessment/Plan: Cough / SOB - suspect viral URI causing mild hypoxemia, though h/o HF noted. O2 requirement down to 1.5 LPM from 3 LPM. -cont supportive care, atbx Chronic systolic heart failure - recent EF 30-35%, does not appear acutely decompensated. Cont outpt regimen, holding Lasix for now. Appreciate cards input. DEE - Cr on the rise, from 2 to 3 overnight despite gentle IVF's. FeNa 0.03% suggesting pre-renal. This fits with her h/o weight loss, decreased oral intake , and URI illness. -Increase IVF rate, change to 1/2 given mild hyperchloremia -Consider echo in AM if Cr on the rise, ?cardiorenal component Anemia - at baseline NAGMA - continue oral bicarb in setting of renal insufficiency Diarrhea - GI pathogen panel negative, loperamide ok if necessary Hyperkalemia - resolved Full code DVT PPLX - MARIAH Dispo - change to inpt, needs further IV hydration for DEE and management of HF and SOB. Subjective: Pt feels a little better. Breathing improved, less cough. No fevers. Still quite weak. Poor appetite. Objective: Vital Signs Temp Pulse Resp BP Pulse Ox 36.7 C 76 20 91/56 L 98 01/28/17 04:00 01/28/17 08:00 01/28/17 08:00 01/28/17 08:00 01/28/17 08:00 Microbiology 01/27/17 17:45 Gastrointestinal Tract Panel (PCR) - Final Stool No Organism Detected Laboratory Results 01/28/17 04:58 01/27/17 01/28/17 01/29/17 05:59 05:59 05:59 Intake Total 1250 Output Total 260 Balance 990 - Physical Exam Constitutional: no apparent distress Eyes: PERRL Ears, Nose, Mouth, Throat: moist mucous membranes Cardiovascular: regular rate and rhythym Respiratory: no respiratory distress, other (a few scattered bibasilar crackles) Gastrointestinal: normoactive bowel sounds, soft, non-tender abdomen Skin: warm Musculoskeletal: full muscle strength Neurologic: AAOx3 Psychiatric: interacting appropriately ICD10 Worksheet Patient Problems: Problems Problem Status Onset Congestive heart failure Acute Elevated troponin I level Acute Cardiomyopathy due to hypertension Acute Chest pain Acute Hypertension Acute NICM (nonischemic cardiomyopathy) Acute Ventricular arrhythmia Acute
[2017-01-28] MEDS: 1/2 NS 1,000 ML IV SCH ×2 (11:24→20:00)
[2017-01-28] MEDS: HEPARIN 5,000 UNIT/0.5 ML SYR SC SCH ×2 (14:50→21:12)
[2017-01-28] MEDS: ACETAMINOPHEN 325 MG TAB PO PRN (16:45)
[2017-01-28 17:39] LABS: ANION GAP 6 mEq/L (8-16); CALCIUM 8.2 mg/dL (8.5-10.4); CARBON DIOXIDE 16 mEq/l (22-31); CHLORIDE 114 mEq/L (97-110); CREATININE 2.1 mg/dL (0.6-1.0); GLOMERULAR FILTRATION RATE 24; GLUCOSE 97 mg/dL (70-100); POTASSIUM 5.1 mEq/L (3.5-5.2); SODIUM 136 mEq/L (134-144)
[2017-01-29] MEDS: oxyCODONE IR 5 MG TAB PO PRN ×2 (02:36→15:54)
[2017-01-29] MEDS: 1/2 NS 1,000 ML IV SCH (02:39)
[2017-01-29 04:45] LABS: ALBUMIN 2.9 g/dL (3.5-5.0); ANION GAP 9 mEq/L (8-16); CALCIUM 8.1 mg/dL (8.5-10.4); CARBON DIOXIDE 16 mEq/l (22-31); CHLORIDE 111 mEq/L (97-110); CREATININE 1.8 mg/dL (0.6-1.0); GLOMERULAR FILTRATION RATE 29; GLUCOSE 79 mg/dL (70-100); POTASSIUM 4.9 mEq/L (3.5-5.2); SODIUM 136 mEq/L (134-144)
[2017-01-29] MEDS: HEPARIN 5,000 UNIT/0.5 ML SYR SC SCH ×3 (05:16→21:07)
[2017-01-29] MEDS: SODIUM BICARBONATE 650 MG TAB PO SCH ×3 (08:18→21:05)
[2017-01-29] MEDS: ASPIRIN EC 81 MG TAB PO SCH (08:18)
[2017-01-29] MEDS: AZITHROMYCIN 250 MG TAB PO SCH (08:18)
[2017-01-29] MEDS: ROSUVASTATIN CALCIUM 10 MG TAB PO SCH (08:18)
--- NOTE | 2017-01-29 08:33 | GCON ---
[reading hospital] CONSULTATION CARDIOLOGY CONSULTATION DATE OF CONSULTATION: 01/28/2017 REASON FOR CONSULTATION: Evaluate woman with shortness of breath, acute renal failure, and known no nischemic cardiomyopathy. HISTORY OF PRESENT ILLNESS: The patient is a 61-year-old woman with the following cardiac history: She was diagnosed in the past with a cardiomyopathy. She has an AICD in place. R eportedly, her lowest EF was 10% to 15%. A heart catheterization in December of 2012 demonstrated norm al coronary arteries. An echo in April of 2014 demonstrated an LVEF of 45%. Her most recent echo in November of 2016 demonstrated an LVEF of 33% with an LVEDD of 6.8 cm and normal RV function. She h as mild mitral and tricuspid insufficiency with estimated normal pulmonary artery pressures. A Card iolite stress test in November of 2016 demonstrated an LVEF of 45%, with no ischemia. She continues to have active tobaccoism and mild COPD. 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 She was [facility] with a presumed URI and started on antibiotics. She has known chronic renal in sufficiency with a creatinine of 1.5. She denies chest pain, palpitations, PND, or syncope. She no rmally can walk about 2-3 blocks. PAST MEDICAL HISTORY: Chronic nonischemic cardiomyopathy with an LVEF of 33%. Chronic renal insuff iciency with a creatinine of 1.5. COPD with active tobaccoism. Medical noncompliance. PAST SURGICAL HISTORY: AICD. Hand surgery. CURRENT MEDICATIONS: Norvasc 5 mg per day, held. Lisinopril, held. Lasix, held. Coreg 25 mg twic e daily. Aspirin 81 mg per day. Azithromycin 500 mg daily. Crestor. ALLERGIES: No known drug allergies. 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 She denies excessive tobacco use. She smokes a pack per day. FAMILY HISTORY: Unremarkable for premature coronary artery disease. REVIEW OF SYSTEMS: The patient reports no GI bleed symptoms such as hematemesis, melena, or bright red blood per rectum. She has had some mild watery diarrhea in the last couple days. Rest of 10-po int review of systems is negative. PHYSICAL EXAM: VITAL SIGNS: Afebrile, pulse 72, blood pressure 91/56, respirations 20. Weight 70 kg. GENERAL: A nontoxic-appearing woman in no acute distress without chest pain or using excess re spiratory muscles. EYES: Pupils equal and reactive to light. ENT: Oral mucosa with no cyanosis. NECK: Jugular venous pressure to 7-8 cm. Carotid pulses 2+ bilaterally with no obvious bruits. L UNGS: Poor E to A ratio consistent with underlying obstructive lung disease. Rare wheezes bilatera lly. No rales. HEART: Distant heart sounds. Regular rate and rhythm with no obvious murmurs or S 3. ABDOMEN: Soft, nontender. No guarding or rebound. No ascites. EXTREMITIES: 2+ peripheral pu lses including femoral and pedal pulses. No edema noted. MUSCULOSKELETAL: No scoliosis. NEURO: Normal affect and mood. SKIN: No cyanosis or bleeding. BACK/NECK: No nuchal rigidity. LABS: White count 5.5, hematocrit 36, platelets 136,000, MCV 90. Sodium 137, potassium 5.1, chlori de 112, bicarb 16, BUN 51, creatinine 3.0. Glucose 110. NT proBNP 301. Troponin 0.04. IMPRESSION: A 61-year-old woman with chronic nonischemic cardiomyopathy with a lef t ventricular ejection fraction of 33%, and AICD with clinically a viral upper respiratory infection and dehydration with acute on chronic renal insufficiency. Volume-suarez, I think she probably is a little bit intravascularly dry. She probably does have some pulmonary hypertension contributing to her jugular venous distention. She does not appear to be in pulmonary edema or with angina. RECOMMENDATIONS: 1. Agree with holding her Norvasc, lisinopril, and Lasix. 2. Would decrease her Coreg to 6.25 mg p.o. b.i.d., and only give it if her systolic blood pressure is above 110. 3. Agree with IV fluid normal saline at 125 cc/hour for another 1-2 L. 4. Will recheck a BMP panel at 5:00 p.m. today and make sure her creatinine is improving with hydra tion and backing off on blood pressure medicines. 5. Discussed with her the need to follow up in the [facility] more regularly a s chronically her left ventricular ejection fraction did almost normalized, but is starting to trend down. 6. Will follow with you closely during her hospitalization. /[id number]/MODL
--- NOTE | 2017-01-29 10:12 | SOAPPROG ---
SOAP Progress Note Assessment/Plan: Assessment: 61 y/o AA woman with chronic non-ischemic systolic CHF with LVEF 33%, AICD and COPD with active tobaccoism and medical non-compliance. Admitted with chills, cough and not feeling well. Feels better compared to yesterday. Past cardiac testing: cath 12/26 normal coronaries, echo 12/02 LVEF 33%, normal RVEF, mild MR and TR and estimated normal PA pressures, cardiolite stress test 12/02 showed LVEF 45% with no ischemia. On my exam: JVP to 7-8cm, lungs: poor E:A ratio consistent with COPD and mild wheezing, distant RRR without S3, no edema. Clinically I think she has URI and resolving hypovolemic and hypotension. REC: 1)stop IVF as appears euvolemic now. May need Lasix 20mg PO later today. 2)restart Coreg but only at 6.25mg PO BID. 3)no Lisinopril yet. 4)maybe home tommorrow if continues to improved. will follow with you. 01/29/17 10:09 Subjective: feels tired and short of breath at walking with PT. Denies CP or syncope. Mild PND. Non-productive cough. Objective: Vital Signs Temp Pulse Resp BP Pulse Ox 36.7 C 71 18 112/66 99 01/29/17 08:00 01/29/17 08:00 01/29/17 08:00 01/29/17 08:00 01/29/17 08:00 Laboratory Results 01/29/17 03:46 01/28/17 01/29/17 01/30/17 05:59 05:59 05:59 Intake Total 2250 Output Total 500 400 Balance 1750 -400 Physical Exam - Physical Exam General Appearance: alert, No obese EENT: PERRL/EOMI Neck: non-tender Respiratory: wheezing (bibasilar wheezes.) Cardiac/Chest: regular rate, rhythm, systolic murmur (1/6 VIOLET heard), No gallop Peripheral Pulses: 2+: carotid (R), carotid (L), femoral (R), femoral (L), dorsalis-pedis (R), dorsalis-pedis (L) Abdomen: non-tender Skin: warm/dry Extremities: No pedal edema Neuro/Psych: alert ICD10 Worksheet Patient Problems: Problems Problem Status Onset Congestive heart failure Acute Elevated troponin I level Acute Cardiomyopathy due to hypertension Acute Chest pain Acute Hypertension Acute NICM (nonischemic cardiomyopathy) Acute Ventricular arrhythmia Acute
--- NOTE | 2017-01-29 10:25 | HOSPPROG ---
Hospitalist Progress Note Assessment/Plan: Cough / SOB - suspect viral URI causing mild hypoxemia, though h/o HF noted. O2 requirement down to 1.5 LPM from 3 LPM. -cont supportive care, atbx -start IS, lung expansion -wean O2 as able Chronic systolic heart failure - recent EF 30-35%, does not appear acutely decompensated. -resume coreg, lasix DEE - Cr improving, down to 1.8 from 3.0. Near baseline now. FeNa 0.03% suggesting pre-renal. This fits with her h/o weight loss, decreased oral intake , diarrhea and URI illness. Volume status improved. -stop IVF's Anemia - at baseline NAGMA - continue oral bicarb in setting of renal insufficiency Diarrhea - This likely contributed to her pre-renal picture on arrival. GI pathogen panel negative, loperamide ok if necessary Hyperkalemia - resolved Full code DVT PPLX - MARIAH Dispo - cont inpt, possible dc tomorrow Subjective: Pt feels a little better everyday. Cough improving. No fevers. No CP or SOB. Objective: Vital Signs Temp Pulse Resp BP Pulse Ox 36.7 C 71 18 112/66 99 01/29/17 08:00 01/29/17 08:00 01/29/17 08:00 01/29/17 08:00 01/29/17 08:00 Laboratory Results 01/29/17 03:46 01/28/17 01/29/17 01/30/17 05:59 05:59 05:59 Intake Total 2250 Output Total 500 400 Balance 1750 -400 - Physical Exam Constitutional: no apparent distress Eyes: PERRL Ears, Nose, Mouth, Throat: moist mucous membranes Cardiovascular: regular rate and rhythym Respiratory: no respiratory distress, other (bibasilar crackles, ?atelectatic) Skin: warm Musculoskeletal: full muscle strength Neurologic: AAOx3 Psychiatric: interacting appropriately ICD10 Worksheet Patient Problems: Problems Problem Status Onset Congestive heart failure Acute Elevated troponin I level Acute Cardiomyopathy due to hypertension Acute Chest pain Acute Hypertension Acute NICM (nonischemic cardiomyopathy) Acute Ventricular arrhythmia Acute
[2017-01-29] MEDS: CARVEDILOL 6.25 MG TAB PO SCH (17:54)
[2017-01-30] MEDS: oxyCODONE IR 5 MG TAB PO PRN ×2 (01:38→10:56)
[2017-01-30] MEDS: HEPARIN 5,000 UNIT/0.5 ML SYR SC SCH ×2 (07:05→08:39)
[2017-01-30] MEDS: CARVEDILOL 6.25 MG TAB PO SCH (08:38)
[2017-01-30] MEDS: SODIUM BICARBONATE 650 MG TAB PO SCH (08:38)
[2017-01-30] MEDS: AZITHROMYCIN 250 MG TAB PO SCH (08:38)
[2017-01-30] MEDS: ROSUVASTATIN CALCIUM 10 MG TAB PO SCH (08:38)
[2017-01-30] MEDS: ASPIRIN EC 81 MG TAB PO SCH (08:38)
[2017-01-30 08:51] VITALS: BP 123/77; PULSE 67; RESP 16; TEMP 98.2; O2SAT 94
--- NOTE | 2017-01-30 09:56 | GDS ---
[f rep st] DISCHARGE SUMMARY DISCHARGE DIAGNOSES: 1. Cough and shortness of breath secondary to viral upper respiratory infection. 2. Acute kidney injury in the setting of chronic kidney disease, improved. 3. Chronic systolic heart failure. 4. Anemia, at baseline. 5. Non-anion gap metabolic acidosis in the setting of renal insufficiency. 6. Diarrhea, resolved. 7. Hyperkalemia, resolved. CONSULTATION: Dr. Toan Best, cardiology. HISTORY: For details, please see dictated history and physical dated January 27, 2017. In brief, the patient is a 61-year-old female with history of chronic systolic heart failure and ejection fractio n of 30% to 35%, who presented to the emergency department with cough and shortness of breath. She was admitted to the hospital for further management. HOSPITAL COURSE: Patient was admitted to the telemetry unit. Her history and symptoms were most co nsistent with a viral upper respiratory infection and bronchitis picture. She appeared volume down on arrival with an elevated creatinine, weight loss, and required IV fluids. Her creatinine donny to 3.0, but then after IV fluids, trended down to 1.8, which is near her baseline. Her Lasix was held while she was volume resuscitated. Her diarrhea resolved. She did have a negative GI pathogen jane el. Her Indocin was held in the setting of acute kidney injury, as well as her lisinopril. We also had to hold her Coreg and Norvasc due to lowish blood pressures on arrival. After volume resuscita tion, she was restarted on a lower dose of Coreg, and I will resume her low-dose lisinopril at disch arge. Norvasc continues to be held, and this may be resumed in the outpatient setting as indicated if her blood pressure is on the rise. I have recommended that she stop the Indocin in the setting o f chronic kidney disease. She completed a total of 2 g of azithromycin, which is sufficient therapy for bronchitis. She will be discharged with albuterol and Robitussin for ongoing supportive care. The patient has requested home health services, so this is also ordered at discharge. DISPOSITION: Patient is discharged home with home health care. FOLLOWUP: 1. Dr. Brock Beckham. 2. Dr. Keturah Kat. DISCHARGE MEDICATIONS: Please see [facility] for complete updated outpatient medication list. New medications include: Albuterol 1-2 puffs inhaled q.4 hours p.r.n. and Robitussin DM 10 mL p.o. q.6 hours p.r.n. Changed medications: Her Coreg dose was decreased to 25 mg p.o. b.i.d. to 6.25 mg p.o. b.i.d. at [facility]. This can be uptitrated as tolerated in the outpatient setting. Her amlodipine is disconti nued at this time. Again, it can be resumed if her blood pressure warrants. Indomethacin was also discontinued in the setting of chronic kidney disease with acute kidney injury. Carvedilol dose is changed as above. She will continue her aspirin, lisinopril, statin and p.r.n. Lasix. /[id number]/MODL
--- NOTE | 2017-01-30 10:03 | PDIAF ---
- Diagnosis Diagnosis: heart failure Code Status: Full Code - Medication Management Discharge Medications: Medications to Continue on Transfer Febuxostat [ULORIC] 40 mg PO HS 11/20/16 [Last Taken 01/26/17] Herbals/Supplements -Info Only 1 ea PO DAILY 11/20/16 [Last Taken Unknown] Lisinopril [Zestril 2.5 mg (*)] 2.5 mg PO HS 11/20/16 [Last Taken 01/26/17] Rosuvastatin Calcium [Crestor] 10 mg PO DAILY #30 tab 11/22/16 [Last Taken 01/26] Furosemide [Lasix 20 MG (*)] 20 mg PO DAILY PRN 01/27/17 [Last Taken 01/22/17] Albuterol [Proventil Inhaler HFA (*)] 1 - 2 puffs IH Q4H #1 mdi 01/30/17 [Last Taken Unknown] Aspirin EC [Aspirin EC 81 mg (*)] 81 mg PO DAILY #30 tab 01/30/17 [Last Taken Unknown] Carvedilol [Coreg (*)] 6.25 mg PO BIDMEAL #60 tab 01/30/17 [Last Taken Unknown] guaiFENesin/DEXTROMETHORPHAN [Robitussin Dm Oral Liquid (*)] 10 ml PO Q4HRS PRN #180 ml 01/30/17 [Last Taken Unknown] Discharge Medications: Refer to the Discharge Home Medication list for PRN reason. PICC Care - Routine: N/A - Orders Services needed: Registered Nurse, Physical Therapy Diet Recommendation: cardiac -low fat low salt - Labs/Radiology BMP Date: 02/02/17 (results to Dr. Kat) - Follow Up Care Current Providers and Referrals: Keturah Kat MD [Primary Care Provider] - As per Instructions Brock Beckham MD [Medical Doctor] -
--- NOTE | 2017-01-30 13:01 | SOAPPROG ---
SOAP Progress Note Assessment/Plan: Assessment: 61 yo AA female admitted with probable COPD exacerbation. Dehydrated at time of admission with ARF. Currently well compensated. ARF has improved. Plan: 1. OK to discharge home today. 2. Will arrange for F?U with Dr. Beckham next week. 3. Hold Lasix/ACEi/Norvasc pending F/U visit. 4. She was advised to call us if she develops MARISOL or worsening dyspnea. 01/30/17 12:59 Subjective: She is doing well. No SOB/CP. Still has a slight cough. Objective: Vital Signs Temp Pulse Resp BP Pulse Ox 36.8 C 67 16 123/77 H 94 01/30/17 08:00 01/30/17 08:05 01/30/17 08:00 01/30/17 08:00 01/30/17 08:05 Laboratory Results 01/29/17 03:46 01/29/17 01/30/17 01/31/17 05:59 05:59 05:59 Intake Total 2250 1500 Output Total 500 1000 Balance 1750 500 Physical Exam - Physical Exam General Appearance: WD/WN, no apparent distress Neck: non-tender Cardiac/Chest: regular rate, rhythm, No edema, No gallop, No JVD Peripheral Pulses: 2+: carotid (R), carotid (L) ICD10 Worksheet Patient Problems: Problems Problem Status Onset Chest pain Acute Ventricular arrhythmia Acute Cardiomyopathy due to hypertension Acute Hypertension Acute Congestive heart failure Acute NICM (nonischemic cardiomyopathy) Acute Elevated troponin I level Acute
== END 2017-01-30 14:42 | disposition home health service (06) | DRG 202 ==
LOC: INTOOBSV 12:21 → F2W 14:06 → OBSVTOIN 01-28 10:52
PROVIDERS: ADMIT Hospitalist; ATTEND Hospitalist
DX: J40 Bronchitis, not specified as acute or chronic (principal); N17.9 Acute kidney failure, unspecified; I13.0 Hypertensive heart and chronic kidney disease with heart failure and stage 1 through stage 4 chronic kidney disease, or unspecified chronic kidney disease; I50.22 Chronic systolic (congestive) heart failure; E87.2 Acidosis; I42.9 Cardiomyopathy, unspecified; E11.22 Type 2 diabetes mellitus with diabetic chronic kidney disease; J06.9 Acute upper respiratory infection, unspecified; N18.3 Chronic kidney disease, stage 3 (moderate); D64.9 Anemia, unspecified; R19.7 Diarrhea, unspecified; E87.5 Hyperkalemia; E78.5 Hyperlipidemia, unspecified; J44.9 Chronic obstructive pulmonary disease, unspecified; E86.0 Dehydration; Z72.0 Tobacco use; Z91.19 Patient's noncompliance with other medical treatment and regimen; Z95.810 Presence of automatic (implantable) cardiac defibrillator
CPT/HCPCS: 97116-GP; 97162-GP; 97165-GO; 97535-GO; G0378; G8978-GP-CI; G8979-GP-CI; G8980-GP-CH; G8987-GO-CI; G8988-GO-CI

== ENCOUNTER 2017-10-13 04:21 | Inpatient (IN) | payer OTHER, MEDICAID ==
[2017-10-13] MEDS ORDERED: ONDANSETRON 4 MG/2 ML VIAL IVP ONE (04:25)
[2017-10-13] MEDS ORDERED: HYDROmorphONE/DILAUDID 1 MG/ML INJ IVP ONE (04:25)
[2017-10-13] MEDS ORDERED: NS 1,000 ML IV ONE (04:25)
--- NOTE | 2017-10-13 04:30 | EDPHY ---
H & P HPI/ROS: HPI CHIEF COMPLAINT: Nausea, vomiting, lower abdominal pain HISTORY OF PRESENT ILLNESS: This patient is a very pleasant 62-year-old female she arrives to the emergency room by ambulance for 3 days of worsening abdominal pain. She describes her abdominal pain in lower abdomen describes as achy sensation rather severe 8/10. She had vomiting this evening. This what prompted her call 911. She arrives to the emergency room at 4:30 a.m. in the morning with 8 at the 10 lower abdominal pain. She did receive 50 mcg IV fentanyl and 4 mg IV Zofran EN route by EMS. However still has ongoing pain. Denies diarrhea. Denies chest pain or shortness of breath. Denies fever. Past Medical History: Gout, ischemic cardiomyopathy, AICD, acute kidney injury , systolic heart failure, medication noncompliance, hypertension, history of diverticulitis Past Surgical History: AICD left chest Social History: Denies daily use of drugs or alcohol. Occasional use of alcohol and daily tobacco use. Family History: Noncontributory ROS REVIEW OF SYSTEMS: A comprehensive 10 point review of systems is otherwise negative aside from elements mentioned in the history of present illness. Exam Constitutional appears nontoxic triage nursing summary reviewed, vital signs reviewed, awake/alert. Eyes normal conjunctivae and sclera, EOMI, PERRLA. HENT normal inspection, atraumatic, dry mucous membranes, no epistaxis, neck supple/ no meningismus, no raccoon eyes. Respiratory clear to auscultation bilaterally, normal breath sounds, no respiratory distress, no wheezing. Cardiovascular rate normal, regular rhythm, no murmur, no edema, distal pulses normal. Gastrointestinal abdomen is distended mild tender palpation around the periumbilical region left lower quadrant and right lower quadrant, no peritoneal signs, hypoactive bowel sounds Genitourinary no CVA tenderness. Musculoskeletal no midline vertebral tenderness, full range of motion, no calf swelling, no tenderness of extremities, no meningismus, good pulses, neurovascularly intact. Skin pink, warm, & dry, no rash, skin atraumatic. Neurologic awake, alert and oriented x 3, AAOx3, moves all 4 extremities equally, motor intact, sensory intact, CN II-XII intact, normal cerebellar, normal vision, normal speech. Psychiatric normal mood/affect. Heme/Lymph/Immune no lymphadenopathy. Differential diagnosis includes but is not limited to and in no particular order : Bowel obstruction, appendicitis, gallbladder disease, diverticulitis, colitis , enteritis, perforated viscus, gastritis, GERD, esophagitis, urinary tract infection, pyelonephritis, kidney stones Medical Decision Making: Plan for this patient IV establishment IV fluid bolus 1 L, IV Dilaudid for pain control, IV Zofran nausea, check blood work abdominal labs, lactic acid, urinalysis, check CT scan abdomen pelvis with IV contrast. Help delineate acute abdominal pain. Re-evaluation: CT scan abdomen pelvis with IV contrast called to me by Dr. Chavez. CT scan shows acute inflammatory process seen in the right lower quadrant concerning for possible acute diverticulitis. The CT scan is a scan without contrast due to elevated creatinine. I will order the patient IV Invanz additionally she is pretty tender I will consult General surgery for further management this. Dr. Chavez can see the appendix the distal pens is normal the proximal appendix slightly enlarged most likely due to the surrounding inflammation of the terminal ileum into the cecum. Possible cecal diverticulitis. 0534: I did re-evaluate this patient this time. She is feeling better with IV pain medicine but still has ongoing pain. CT scan reviewed most likely shows acute diverticulitis. I have ordered her IV Invanz. Will admit to the hospitalist service 0534: Additionally I consult surgery Dr. Landa about this patient's abdominal tenderness and CT scan. He will be glad to consult on the patient. [id number]: Spoke with Dr. Vera, agrees to admit the patient 0540: Patient updated. She agrees to be admitted to the hospital. Here in the emergency room blood work and CT is reviewed. She received 1 g IV Invanz, IV Dilaudid for control IV Zofran for nausea, 1 L of fluid. Source: Patient, EMS - Medical/Surgical History Hx Asthma: No Hx Chronic Respiratory Disease: No Hx Diabetes: Yes Hx Cardiac Disease: Yes Hx Renal Disease: Yes Hx Cirrhosis: No Hx Alcoholism: No Hx HIV/AIDS: No Hx Splenectomy or Spleen Trauma: No Other PMH: Congestive heart failure, chronic renal insufficiency stage III, diabetes (resolved with d/c of steroids), hypertension, on demand pacer/ defibrillator, rheumatoid arthritis, gout, multiple falls, chronic pain - Social History Smoking Status: Light smoker Constitutional: Initial Vital Signs Temperature (C) 37.1 C 10/13/17 04:25 Heart Rate 101 H 10/13/17 04:25 Respiratory Rate 16 10/13/17 04:25 Blood Pressure 145/83 H 10/13/17 04:25 O2 Sat (%) 90 L 10/13/17 04:25 O2 Delivery Mode Nasal Cannula O2 (L/minute) 2 Allergies/Adverse Reactions: ketorolac tromethamine [From Toradol] Allergy (Intermediate, Verified 10/13/17 04:36) tramadol Allergy (Intermediate, Verified 10/13/17 04:36) lips and legs "puff up" Home Medications: Medication Instructions Recorded Febuxostat [ULORIC] 40 mg PO HS 11/20/16 Furosemide [Lasix 20 MG (*)] 20 mg PO BID AT 7AM AND 3PM 01/27/17 Aspirin EC [Aspirin EC 81 mg (*)] 81 mg PO DAILY #30 tab 01/30/17 Albuterol [Proventil Inhaler HFA 1 - 2 puffs IH Q4H PRN 10/13/17 (*)] Carvedilol [Coreg (*)] 25 mg PO BIDMEAL 10/13/17 Fluticasone Nasal [Flonase Nasal 1 sprays NASAL DAILY 10/13/17 [place] (RX)] Losartan Potassium [Cozaar 50 mg 50 mg PO DAILY 10/13/17 (*)] Rosuvastatin Calcium [Crestor] 10 mg PO HS 10/13/17 Medical Decision Making - Data Points Laboratory Results: Laboratory Results 10/13/17 04:25 10/13/17 04:25 Medications Given: Hydrocodone Bitart/Acetaminophen (Cameron 5/325) 1 - 2 tab PO Q4HRS PRN PRN Reason: Pain, Moderate Able to Take PO Stop: 10/23/17 06:39 Last Admin: 10/16/17 11:26 Dose: 1 tab Aspirin Buffered (Aspirin Ec) 81 mg PO DAILY [facility] Stop: 04/11/18 15:59 Last Admin: 10/16/17 09:59 Dose: 81 mg Bisacodyl (Dulcolax Rectal) 10 mg DC DAILY PRN; Protocol PRN Reason: Constipation Stop: 04/12/18 10:04 Last Admin: 10/14/17 17:34 Dose: 10 mg Carvedilol (Coreg) 25 mg PO BIDMEAL [facility] Stop: 04/11/18 17:59 Last Admin: 10/14/17 10:39 Dose: Not Given Diphenhydramine HCl (Benadryl) 25 - 50 mg PO Q6HRS PRN PRN Reason: Itching Stop: 04/11/18 06:39 Last Admin: 10/14/17 21:30 Dose: 25 mg Diphenhydramine HCl (Benadryl Cream) 1 chirag TP QID PRN PRN Reason: Itching Stop: 04/12/18 09:58 Last Admin: 10/15/17 08:19 Dose: 1 chirag Fluticasone Propionate (Flonase Nasal [place]) 1 sprays [place] DAILY [facility]IA[facility] Stop: 04/11/18 08:59 Last Admin: 10/16/17 10:17 Dose: 1 spray Furosemide (Lasix) 20 mg PO BID AT 7AM AND 3PM [facility]IA[facility] Stop: 04/11/18 15:59 Last Admin: 10/16/17 15:33 Dose: 20 mg Hydromorphone HCl (Dilaudid) 0.5 - 1 mg IVP Q3HRS PRN PRN Reason: Pain, Severe Unable to Take PO Stop: 10/23/17 06:39 Last Admin: 10/13/17 07:45 Dose: 1 mg Ertapenem 0.5 gm/ (Miscellaneous Information) mls @ 0 mls/hr IVP DAILY@0600 MARIAH PRN Reason: As Directed Stop: 11/14/17 05:59 Last Admin: 10/16/17 06:29 Dose: 5 mls Lidocaine/Prilocaine (Emla Cream) 1 chirag TP ONCE PRN PRN Reason: FOR IV START Stop: 04/14/18 10:53 Last Admin: 10/16/17 11:28 Dose: 1 chirag Losartan Potassium (Cozaar) 50 mg PO DAILY [facility] Stop: 04/11/18 15:59 Last Admin: 10/14/17 10:40 Dose: Not Given Miscellaneous Medication (Febuxostat [Uloric]) 40 mg PO HS [facility]IA[facility] Stop: 04/11/18 20:59 Last Admin: 10/15/17 22:31 Dose: Not Given Rosuvastatin Calcium (Crestor) 10 mg PO HS [facility] Stop: 04/11/18 20:59 Last Admin: 10/15/17 22:48 Dose: 10 mg Discontinued Medications Ertapenem (Invanz) 1 gm IVP EDNOW ONE PRN Reason: Protocol Stop: 10/13/17 05:29 Last Admin: 10/13/17 05:40 Dose: 1 gm Ertapenem (Invanz) 1 gm IVP DAILY MARIA[facility] PRN Reason: Protocol Stop: 11/12/17 04:59 Last Admin: 10/13/17 07:01 Dose: Not Given Ertapenem (Invanz) 1 gm IVP DAILY@0600 MARIAH PRN Reason: Protocol Stop: 11/13/17 05:59 Last Admin: 10/14/17 06:03 Dose: 1 gm Furosemide (Lasix Injection) 20 mg IVP BIDDIUR MARIAH Stop: 04/12/18 12:29 Last Admin: 10/16/17 09:59 Dose: Not Given Hydromorphone HCl (Dilaudid) 0.5 mg IVP EDNOW ONE Stop: 10/13/17 04:26 Last Admin: 10/13/17 04:45 Dose: 0.5 mg Sodium Chloride (Ns) 1,000 mls @ 0 mls/hr IV EDNOW ONE; Wide Open PRN Reason: Protocol Stop: 10/13/17 04:26 Last Admin: 10/13/17 04:44 Dose: 1,000 mls Sodium Chloride (Ns) 1,000 mls @ 50 mls/hr IV CONT MARIAH Stop: 04/11/18 15:59 Last Admin: 10/14/17 06:03 Dose: 1,000 mls Sodium Chloride (Ns) 500 mls @ 0 mls/hr IV ONCE ONE PRN Reason: As Directed Stop: 10/14/17 14:31 Last Admin: 10/14/17 13:10 Dose: 500 mls Ondansetron HCl (Zofran) 4 mg IVP EDNOW ONE Stop: 10/13/17 04:26 Last Admin: 10/13/17 04:44 Dose: 4 mg Pantoprazole Sodium (Protonix) 40 mg IVP BID MARIAH Stop: 04/12/18 10:14 Last Admin: 10/16/17 15:37 Dose: Not Given Senna/Docusate Sodium (Senokot-S) 1 - 2 tab PO BID [facility]IAH PRN Reason: Protocol Stop: 04/12/18 20:59 Last Admin: 10/16/17 10:00 Dose: Not Given Departure - Departure Disposition: [facility] Inpatient Acute Clinical Impression: Diverticulitis Condition: Fair
[2017-10-13] MEDS ORDERED: IOPAMIDOL (ISOVUE-300) 100 ML BTL ONE (04:41)
[2017-10-13 04:49] LABS: INR 1.05 (0.83-1.16); PROTIME(PATIENT) 13.9 SEC (12.0-15.0)
[2017-10-13 04:52] LABS: PLATELET COUNT 150 10^3/uL (150-400)
[2017-10-13] MEDS ORDERED: ERTAPENEM 1 GM VIAL IVP SCH (05:00)
[2017-10-13] MEDS ORDERED: ERTAPENEM 1 GM VIAL IVP ONE (05:28)
[2017-10-13] MEDS ORDERED: ACETAMINOPHEN 325 MG TAB PO PRN (06:40)
[2017-10-13] MEDS ORDERED: diphenhydrAMINE 25 MG CAP PO PRN (06:40)
[2017-10-13] MEDS ORDERED: LORazepam 2 MG/ML INJ IVP PRN (06:40)
--- NOTE | 2017-10-13 07:10 | GHP ---
[f rep st] HISTORY AND PHYSICAL DATE OF ADMISSION: 10/13/2017 CHIEF COMPLAINT: Right lower quadrant pain. PRESENT ILLNESS: I was asked to see the patient by the emergency room physician in regard to right l ower quadrant pain. This 62-year-old female has had 3 days of progressive abdominal pain, some vomit ing, and presented to the emergency department. She states she had a similar episode 8 years ago, bu t not quite as severe, and was diagnosed with diverticulitis. She says it was right-sided at that ti me, but it is unclear whether her diverticulitis was right-sided or sigmoid. ALLERGIES: Tramadol. CURRENT MEDICATIONS: Lasix, Coreg, Uloric, Lotensin. She denies use of any anticoagulant at the pre sent time. REVIEW OF SYSTEMS: Denies asthma, heart attacks, epilepsy, rheumatic fever, nor diabetes. She does have a history of congestive heart failure. Has a defibrillator in place. Her pediatric urologist is Elmer Beckham. SOCIAL HISTORY: She smokes occasionally. Alcohol use occasionally. She is single. PREVIOUS SURGERY: Hand, foot, defibrillator implantation. PHYSICAL EXAM: GENERAL: Obese black female in minimal distress except when her abdomen is examined. HEENT: No scleral icterus. LUNGS: Clear. HEART: Normal S1, S2. Normal sinus rhythm. ABDOMEN: Soft but extremely tender in the right upper quadrant and right lower quadrant. IMAGING: CT scan is reviewed showing marked inflammation in the mesentery around the terminal ileum and cecum. The appendix seems uninflamed and has air in it distally. There is some retained contras t material apparently in diverticula. ASSESSMENT: Inflammation of the cecum or terminal ileum, possibly from diverticulitis on the right s jesus versus some type of terminal ileitis. RECOMMENDATIONS: IV antibiotics and observation. Of note is her white blood count is currently norm al other than a 14% bandemia. Should her symptoms worsen, it is conceivable she would need an explor atory laparotomy for possible bowel resection, but hopefully this will respond to antibiotics. /[id number]/MODL
[2017-10-13] MEDS ORDERED: HYDROmorphONE/DILAUDID 1 MG/ML INJ ONE (07:43)
[2017-10-13] MEDS: HYDROmorphONE/DILAUDID 1 MG/ML INJ IVP PRN (07:45)
[2017-10-13] MEDS ORDERED: hydrALAZINE 20 MG/ML VIAL IVP PRN (07:50)
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
[2017-10-13] MEDS: FLUTICASONE NASAL 120 SPRAYS/16 GM MDI EACHNARE SCH (13:36)
[2017-10-13] MEDS: HYDROCODONE/APAP 5/325 TAB PO PRN ×2 (14:22→20:38)
--- NOTE | 2017-10-13 14:44 | PDMN ---
Medical Necessity Medical necessity: Pt meets IP criteria per MD; est los >2 mn for eval/tx of diverticulitis w/severe symptoms including, N/V & progressively worsening abdominal pain; admit for further observation, IV pain meds/antiemetics & possible intervention, if she fails medical management with IV abx therapy; hx HTN, ischemic cardiomyopathy w/CHF, s/p ICD, CAD, CKD stage 3; per H&P & order 10/13/17
[2017-10-13] MEDS ORDERED: ALBUTEROL 60 PUFFS/8 GM MDI IH PRN (15:47)
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
[2017-10-13 17:20] LABS: PLATELET COUNT 129 10^3/uL (150-400)
[2017-10-13] MEDS: FUROSEMIDE 20 MG TAB PO SCH (17:35)
[2017-10-13] MEDS: CARVEDILOL 25 MG TAB PO SCH (17:35)
[2017-10-13] MEDS: ASPIRIN EC 81 MG TAB PO SCH (17:35)
[2017-10-13] MEDS: LOSARTAN POTASSIUM 50 MG TAB PO SCH (17:37)
[2017-10-13] MEDS: NS 1,000 ML IV SCH (17:45)
[2017-10-13] MEDS: Febuxostat [Uloric] 40 MG PO SCH (20:39)
[2017-10-13] MEDS: ROSUVASTATIN CALCIUM 10 MG TAB PO SCH (20:39)
[2017-10-14 04:15] LABS: PLATELET COUNT 131 10^3/uL (150-400)
[2017-10-14] MEDS ORDERED: ERTAPENEM 1 GM VIAL IVP SCH (06:00)
[2017-10-14] MEDS: NS 1,000 ML IV SCH (06:03)
[2017-10-14] MEDS: FUROSEMIDE 20 MG TAB PO SCH (06:10)
[2017-10-14] MEDS: HYDROCODONE/APAP 5/325 TAB PO PRN ×2 (06:10→21:28)
--- NOTE | 2017-10-14 09:48 | SOAPPROG ---
SOAP Progress Note Assessment/Plan: Assessment: Plan: Subjective: feels a little better. 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 access: abd pain, ct documented cecal and ileal inflammation- possibly viral- versus inflammatory bowel disease recc be patient, stay on clear liq. no surgical indication. consider colonosclopy if she doesn't improve. Objective: Vital Signs Temp Pulse Resp BP Pulse Ox 37.1 C 79 17 94/61 L 94 10/14/17 07:31 10/14/17 07:31 10/14/17 07:31 10/14/17 07:31 10/14/17 07:31 Laboratory Results 10/14/17 03:34 10/14/17 03:34 10/13/17 10/14/17 10/15/17 05:59 05:59 05:59 Intake Total 2545 Output Total 200 Balance 2345 PT 13.9 SEC (12.0-15.0) 10/13/17 04:25 INR 1.05 (0.83-1.16) 10/13/17 04:25 ICD10 Worksheet Patient Problems: Problems Problem Status Onset Diverticulitis Acute Cardiomyopathy due to hypertension Acute Chest pain Acute Congestive heart failure Acute Elevated troponin I level Acute Hypertension Acute NICM (nonischemic cardiomyopathy) Acute Ventricular arrhythmia Acute
[2017-10-14] MEDS ORDERED: MAGNESIUM HYDROXIDE 30 ML UDCUP PO PRN (10:05)
[2017-10-14] MEDS ORDERED: LACTULOSE 20 GM/30 ML UDCUP PO PRN (10:05)
[2017-10-14] MEDS ORDERED: BISACODYL 10 MG SUPP PR PRN (10:05)
[2017-10-14] MEDS ORDERED: POLYETHYLENE GLYCOL 3350 17 GM PKT PO PRN (10:05)
[2017-10-14] MEDS: CARVEDILOL 25 MG TAB PO SCH (10:39)
[2017-10-14] MEDS: LOSARTAN POTASSIUM 50 MG TAB PO SCH (10:40)
[2017-10-14] MEDS: PANTOPRAZOLE SODIUM 40 MG VIAL IVP SCH ×2 (11:55→21:28)
[2017-10-14] MEDS: FLUTICASONE NASAL 120 SPRAYS/16 GM MDI EACHNARE SCH (11:55)
[2017-10-14] MEDS: ASPIRIN EC 81 MG TAB PO SCH (14:20)
[2017-10-14] MEDS: FUROSEMIDE 20 MG/2 ML VIAL IVP SCH ×2 (14:20→16:09)
[2017-10-14] MEDS ORDERED: NS 500 ML IV ONE (14:30)
[2017-10-14] MEDS ORDERED: FUROSEMIDE 20 MG/2 ML VIAL IVP SCH (15:00)
[2017-10-14] MEDS: DIPHENHYDRAMINE CREAM TP PRN (16:10)
--- NOTE | 2017-10-14 17:43 | HOSPPROG ---
Hospitalist Progress Note Assessment/Plan: 62-year-old female admitted with left lower quadrant abdominal pain. Patient is new to me today. She was thought to have a mesenteric adenitis and her pain is diminished since admission while on IV antibiotics. She has less rebound in the left lower quadrant than on admission. Case has been discussed with surgery and feel that it is nonsurgical and improving at this time. General thought is that it is a viral adenitis. -abdominal pain both left and right lower quadrant felt to be mesenteric adenitis with a normal white count and afebrile. Subjective: Reports her pain and her appetite are slowly improving. Objective: Vital Signs Temp Pulse Resp BP Pulse Ox 36.9 C 85 20 95/63 L 93 10/14/17 15:56 10/14/17 15:56 10/14/17 15:56 10/14/17 15:56 10/14/17 15:56 Laboratory Results 10/14/17 03:34 10/14/17 03:34 10/13/17 10/14/17 10/15/17 05:59 05:59 05:59 Intake Total 2545 Output Total 200 400 Balance 2345 -400 PT 13.9 SEC (12.0-15.0) 10/13/17 04:25 INR 1.05 (0.83-1.16) 10/13/17 04:25 - Time Spent With Patient Time Spent with Patient: greater than 35 minutes Time Spent with Patient: Greater than 35 minutes spent on this patients care, greater than 50% of time spent counseling, educating, and coordinating care regarding the above mentioned plan. - Pending Discharge Pending Discharge Within 24 Hours: No Pending Discharge Within 48 Hours: Yes Pending Discharge Date: 10/16/17 Pending Discharge Time: 11:00 - Physical Exam Constitutional: no apparent distress, appears nourished Eyes: PERRL, anicteric sclera Ears, Nose, Mouth, Throat: moist mucous membranes, hearing normal Cardiovascular: regular rate and rhythym, no murmur, rub, or gallop Respiratory: no respiratory distress, no rales or rhonchi Gastrointestinal: normoactive bowel sounds, tenderness, guarding, rebound, distension Genitourinary: no bladder fullness Musculoskeletal: full muscle strength ICD10 Worksheet Patient Problems: Problems Problem Status Onset Chest pain Acute Ventricular arrhythmia Acute Cardiomyopathy due to hypertension Acute Hypertension Acute Congestive heart failure Acute NICM (nonischemic cardiomyopathy) Acute Elevated troponin I level Acute Diverticulitis Acute
[2017-10-14] MEDS: ROSUVASTATIN CALCIUM 10 MG TAB PO SCH (21:29)
[2017-10-14] MEDS: SENNOSIDES/DOCUSATE SODIUM TAB PO SCH (21:29)
[2017-10-14] MEDS: Febuxostat [Uloric] 40 MG PO SCH (21:32)
[2017-10-15 04:35] LABS: PLATELET COUNT 139 10^3/uL (150-400)
[2017-10-15] MEDS: ERTAPENEM IVP SCH (06:03)
[2017-10-15] MEDS: DIPHENHYDRAMINE CREAM TP PRN (08:19)
[2017-10-15] MEDS: SENNOSIDES/DOCUSATE SODIUM TAB PO SCH ×3 (09:00→22:48)
[2017-10-15] MEDS: FUROSEMIDE 20 MG/2 ML VIAL IVP SCH ×3 (09:01→17:24)
[2017-10-15] MEDS: PANTOPRAZOLE SODIUM 40 MG VIAL IVP SCH ×2 (09:01→22:48)
[2017-10-15] MEDS: ASPIRIN EC 81 MG TAB PO SCH (09:01)
[2017-10-15] MEDS: HYDROCODONE/APAP 5/325 TAB PO PRN ×2 (09:07→22:48)
[2017-10-15] MEDS: FLUTICASONE NASAL 120 SPRAYS/16 GM MDI EACHNARE SCH (09:09)
--- NOTE | 2017-10-15 09:12 | SOAPPROG ---
SOAP Progress Note Assessment/Plan: Assessment: Plan: Subjective: less pain, multiple stool;s last pm and 1 this am abd softer. esr was97, crp was 400- puzziling for short term possible viral issue- will advance diet, discussed with pt that if her symptoms were to return, colonoscopy to [facility] for IBD would be appropriate. Objective: Vital Signs Temp Pulse Resp BP Pulse Ox 37.2 C 78 15 99/64 L 90 L 10/15/17 07:15 10/15/17 07:15 10/15/17 07:15 10/15/17 07:15 10/15/17 07:15 Laboratory Results 10/15/17 04:10 10/15/17 04:10 10/14/17 10/15/17 10/16/17 05:59 05:59 05:59 Intake Total 2545 1043 Output Total 200 500 Balance 2345 543 PT 13.9 SEC (12.0-15.0) 10/13/17 04:25 INR 1.05 (0.83-1.16) 10/13/17 04:25 ICD10 Worksheet Patient Problems: Problems Problem Status Onset Diverticulitis Acute Cardiomyopathy due to hypertension Acute Chest pain Acute Congestive heart failure Acute Elevated troponin I level Acute Hypertension Acute NICM (nonischemic cardiomyopathy) Acute Ventricular arrhythmia Acute
--- NOTE | 2017-10-15 11:12 | HOSPPROG ---
Hospitalist Progress Note Assessment/Plan: 62-year-old female admitted with left lower quadrant abdominal pain. Patient is new to me today. She was thought to have a mesenteric adenitis and her pain is diminished since admission while on IV antibiotics. She has less rebound in the left lower quadrant than on admission. Case has been discussed with surgery and feel that it is nonsurgical and improving at this time. General thought is that it is a viral adenitis. -abdominal pain both left and right lower quadrant felt to be mesenteric adenitis with a normal white count and afebrile. Subjective: Reports she is feeling slightly improved without fever or chills Objective: Vital Signs Temp Pulse Resp BP Pulse Ox 37.2 C 78 15 99/64 L 90 L 10/15/17 07:15 10/15/17 07:15 10/15/17 07:15 10/15/17 07:15 10/15/17 07:15 Laboratory Results 10/15/17 04:10 10/15/17 04:10 10/14/17 10/15/17 10/16/17 05:59 05:59 05:59 Intake Total 2545 1043 Output Total 200 500 Balance 2345 543 PT 13.9 SEC (12.0-15.0) 10/13/17 04:25 INR 1.05 (0.83-1.16) 10/13/17 04:25 Laboratory Tests 10/13/17 10/13/17 10/14/17 04:25 04:25 03:34 WBC 7.62 Hgb 12.1 L Plt Count 150 ESR 97 H Creatinine 1.8 H C-Reactive Protein 10/14/17 10/15/17 10/15/17 03:34 04:10 04:10 WBC 7.14 Hgb 8.4 L Plt Count 139 L ESR Creatinine 1.9 H C-Reactive Protein 412.1 H Patient remains afebrile with normal WBC, elevated CRP and sed rate, and CKI with creatinine 1.8; baseline creatinine 2013 1.6, slowly rising in last 3 years. Baseline now probably 1.8 - Time Spent With Patient Time Spent with Patient: greater than 35 minutes Time Spent with Patient: Greater than 35 minutes spent on this patients care, greater than 50% of time spent counseling, educating, and coordinating care regarding the above mentioned plan. - Pending Discharge Pending Discharge Within 24 Hours: No Pending Discharge Within 48 Hours: Yes Pending Discharge Date: 10/17/17 Pending Discharge Time: 11:00 - Physical Exam Constitutional: no apparent distress Eyes: PERRL Ears, Nose, Mouth, Throat: moist mucous membranes Cardiovascular: regular rate and rhythym, no murmur, rub, or gallop Respiratory: no respiratory distress, no rales or rhonchi Gastrointestinal: normoactive bowel sounds, tenderness, guarding, rebound, distension Genitourinary: no bladder fullness ICD10 Worksheet Patient Problems: Problems Problem Status Onset Chest pain Acute Ventricular arrhythmia Acute Cardiomyopathy due to hypertension Acute Hypertension Acute Congestive heart failure Acute NICM (nonischemic cardiomyopathy) Acute Elevated troponin I level Acute Diverticulitis Acute
[2017-10-15] MEDS: Febuxostat [Uloric] 40 MG PO SCH (22:31)
[2017-10-15] MEDS: ROSUVASTATIN CALCIUM 10 MG TAB PO SCH (22:48)
[2017-10-16] MEDS: ERTAPENEM IVP SCH (06:29)
[2017-10-16] MEDS: ASPIRIN EC 81 MG TAB PO SCH (09:59)
[2017-10-16] MEDS: FUROSEMIDE 20 MG/2 ML VIAL IVP SCH (09:59)
[2017-10-16] MEDS: PANTOPRAZOLE SODIUM 40 MG VIAL IVP SCH ×2 (09:59→15:37)
[2017-10-16] MEDS: SENNOSIDES/DOCUSATE SODIUM TAB PO SCH (10:00)
[2017-10-16] MEDS: FLUTICASONE NASAL 120 SPRAYS/16 GM MDI EACHNARE SCH (10:17)
[2017-10-16] MEDS ORDERED: LIDOCAINE/PRILOCAINE 1 EACH CRTUBE TP PRN (10:54)
[2017-10-16] MEDS: HYDROCODONE/APAP 5/325 TAB PO PRN ×2 (11:26→20:13)
[2017-10-16] MEDS ORDERED: FLU VACC QS 2017-18 (3YR+)/PF 0.5 ML SYR (FLUARIX QUAD) IM ONE (11:41)
[2017-10-16] MEDS: FUROSEMIDE 20 MG TAB PO SCH (15:33)
--- NOTE | 2017-10-16 15:52 | ASMTCMCOM ---
CM Note CM Note Notes: CM met w/ pt for dispo planning. Pt is requesting to have HC services at time of d/c. Pt is requesting to have [facility]. Referral made to [facility]. CM spoke w/ ZHANG Garcia from [facility] that was monitor and storage bin tender today. CM was instructed to contact [facility] tomorrow to check for availability for the week. Pt would like CM to start the intake process for [facility]. CM completed [facility] intake for pt. CM to follow. Plan: HC Date Signed: 10/16/2017 03:52 PM Electronically Signed By:ALFA Jaevd
[2017-10-16] MEDS ORDERED: ALTEPLASE 2 MG VIAL IVP PRN (16:03)
--- NOTE | 2017-10-16 16:37 | HOSPPROG ---
Hospitalist Progress Note Assessment/Plan: * RLQ phlegmon, rule out abscess -diverticulitis vs. Meckel as source; acute appy ruled out -persistent bandemia, very elevated ESR/CRP -she may need more prolonged therapy with IV abx - consult ID - d/w Dr. Thorne -repeat CT abd/pelvis at some point * Relative hypotension - she is not tolerating her usual home meds -hold lasix, coreg, losartan until BP improves * Chronic systolic CHF - EF 30% (non-ischemic) * V tach s/p AICD * CKD - at baseline creatinine 1.8 * Adrenal adenoma - outpatient work-up Subjective: RLQ pain a little better Objective: Vital Signs Temp Pulse Resp BP Pulse Ox 36.6 C 77 16 120/72 86 L 10/16/17 15:14 10/16/17 15:14 10/16/17 15:14 10/16/17 15:14 10/16/17 15:14 Laboratory Results 10/15/17 04:10 10/15/17 04:10 10/15/17 10/16/17 10/17/17 05:59 05:59 05:59 Intake Total 1043 750 Output Total 500 400 300 Balance 543 350 -300 PT 13.9 SEC (12.0-15.0) 10/13/17 04:25 INR 1.05 (0.83-1.16) 10/13/17 04:25 CT abd/pelvis - RLQ phlegmon - CT limited by lack of IV contrast due to renal failure - Physical Exam Constitutional: no apparent distress, appears nourished, not in pain Cardiovascular: regular rate and rhythym, no murmur, rub, or gallop Respiratory: no respiratory distress, no rales or rhonchi, clear to auscultation Gastrointestinal: tenderness (RLQ), distension, No ascites, No guarding, No rebound Skin: no rashes or abrasions, no fluctuance, no induration Neurologic: AAOx3, sensation intact bilaterally Psychiatric: interacting appropriately, not anxious, not encephalopathic, thought process linear ICD10 Worksheet Patient Problems: Problems Problem Status Onset Diverticulitis Acute Cardiomyopathy due to hypertension Acute Chest pain Acute Congestive heart failure Acute Elevated troponin I level Acute Hypertension Acute NICM (nonischemic cardiomyopathy) Acute Ventricular arrhythmia Acute
--- NOTE | 2017-10-16 17:30 | GCON ---
[f rep st] CONSULTATION INFECTIOUS DISEASE CONSULTATION DATE OF CONSULTATION: 10/16/2017 REFERRING PHYSICIAN: Roxanne Timmons MD REASON FOR CONSULTATION: Medical management of early diverticular abscess. HISTORY OF PRESENT ILLNESS: A 62-year-old woman with a past medical history of ischemic cardiomyopathy with CHF and with AICD in place, who presents via ambulance to the emergency room on 10/13/2017 complaining of progressive severe sharp lower abdominal pain, primarily periumbilical, associated with nausea and vomiting. No associated diarrhea. She denies melena, bright red blood per rectum, as well as hematemesis. The patient underwent a noncontrasted CT on admission, which showed a left lower quadrant phlegmon/early abscess likely associated with terminal ileum diverticulitis, without clear form of abscess. Surgery was consulted and recommended medical management, and ertapenem was initiated on admission. The patient reports a 40% improvement in pain since admission and some improvement in her overall malaise. In addition to abdominal pain, the patient felt significantly lightheaded on admission, but that is improved some today. Further, the patient's blood pressure has been relatively low and blood pressure medicines have been continued to be held. She denies associated constipation before presenting to the hospital. Prior to [facility], she was in her usual state of health, working doing [employer] work 5 days a week part-time. REVIEW OF SYSTEMS: A complete 10-point review of systems was performed and is negative, except as mentioned in the HPI. She does also report subjective fevers and chills. She denies rash. She does report dizziness, without definitive syncope, as per HPI. Otherwise, review of systems is negative. ALLERGIES: NKDA. MEDICATIONS: Include ertapenem 500 mg IV daily, Tylenol, she is on [place] 5/325 one to 2 p.o. q.4 p.r.n., aspirin 81 mg daily, albuterol for shortness of breath , Coreg 25 mg twice daily (this has been held during her hospitalization), Benadryl as needed, Flonase nasal spray, Dilaudid 1 mg IV q.3 hours p.r.n., lactulose as needed, lidocaine patch for IV starts, losartan, febuxostat 40 mg daily, oxycodone as needed, Crestor 10 mg at bedtime, Zofran as needed. PAST MEDICAL HISTORY: Hypertension, hyperlipidemia, ischemic myopathy with congestive heart failure (last EF 30% in 2016, AICD was placed), coronary artery disease, gout, chronic kidney disease stage 3 (baseline creatinine 1.8-2) , history of diverticulosis, colon polyps, chronic pain symptoms. FAMILY HISTORY: Positive for hypertension and coronary artery disease. SOCIAL HISTORY: The patient lives alone. Occasionally smokes tobacco. Occasional alcohol. 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 No recent travel. PHYSICAL EXAM: VITAL SIGNS: Blood pressure 120/72, T-max 37.9, T current 36.2 , saturation 93% on 2 L, heart rate 77. GENERAL: This is a pleasant woman sitting up in bed. She is nontoxic. HEENT: No conjunctival hemorrhages. Oropharynx: Fair dentition. Moist mucous membranes. NECK: Supple. No lymphadenopathy. CARDIOVASCULAR: Regular rate and rhythm with a systolic murmur. CHEST: Clear to auscultation bilaterally. ABDOMEN: The patient had significant tenderness to the mid epigastrium in the left lower quadrant. Bowel sounds are present. EXTREMITIES: No clubbing, cyanosis, or edema. NEUROLOGIC: She is alert and oriented x4. She had generalized weakness, but no focal deficits. SKIN: No peripheral IV was in place. GENITOURINARY: No [place]. LABORATORY: Admission white count was 8.6 with 48% neutrophils and 40% bands. Today, white count 7.1 with 81% neutrophils, 8% lymphocytes, platelets are slightly declined at 139, hematocrit 27. Creatinine is 1.9. CRP 412. LFTs: Other than hypoalbuminemia, were normal, with a total protein of 5.2 and albumin 2.4. Urinalysis was negative. Blood cultures were not obtained. IMAGING: As per HPI. ASSESSMENT: A 62-year-old woman with a past medical history of chronic renal insufficiency, coronary artery disease and congestive heart failure, who presents with lightheadedness, nausea, vomiting and lower abdominal pain, and found to have diverticulitis with associated phlegmon, with clinical improvement on renal dosed IV ertapenem. The patient reports 40% improvement in abdominal pain, bandemia improved but she remains fairly debilitated, is requiring less than typical BP meds and with surprisingly significant abdominal pain on exam - but no peritoneal signs. PLAN: Would continue IV antibiotics at this point dosed for CrCl 35, borderline CrCl for dose reduction - continue ertapenem 500mg IV daily for now. Will likely need IV antibiotics as outpatient. Nonetheless, would continue to monitor at inpatient - concerning findings described above. Repeat noncontrasted CT abdomen/pelvis tomorrow to evaluate for need for evolution of phlegmon to a drainable abscess. Reviewed risk and benefits of PICC line, risks of antibiotics. Thank you for this consultation. Will continue to follow on a daily basis. Care coordinated with Dr. Timmons. /[id number]/MODL MTDD
[2017-10-16] MEDS: CARVEDILOL 25 MG TAB PO SCH (19:49)
[2017-10-16] MEDS: ROSUVASTATIN CALCIUM 10 MG TAB PO SCH (19:49)
[2017-10-16] MEDS: Febuxostat [Uloric] 40 MG PO SCH (19:50)
[2017-10-16] MEDS ORDERED: PANTOPRAZOLE SODIUM 40 MG TAB PO SCH (21:00)
[2017-10-17] MEDS: ERTAPENEM IVP SCH (05:40)
[2017-10-17 06:11] LABS: PLATELET COUNT 198 10^3/uL (150-400)
[2017-10-17 07:30] LABS: HIV TYPE 1 AND 2 NEGATIVE (NEGATIVE)
[2017-10-17] MEDS: FUROSEMIDE 20 MG TAB PO SCH ×2 (07:34→15:29)
[2017-10-17] MEDS: ASPIRIN EC 81 MG TAB PO SCH (09:34)
[2017-10-17] MEDS: CARVEDILOL 25 MG TAB PO SCH ×2 (09:34→17:50)
[2017-10-17] MEDS: FLUTICASONE NASAL 120 SPRAYS/16 GM MDI EACHNARE SCH (09:41)
--- NOTE | 2017-10-17 10:15 | PCMIDPN ---
Assessment/Plan: Assessment/Plan: 1. Acute diverticulitis with possible early abscess: - Currently on renal dose Invanz -wbc stable. creatinine at 1.8 -Continues with abd pain - For f/u Ct a/p today noncontrast - plan of care reviewed with patient - care coordinated with RN. Lena invanz 500mg daily - 10/15/17 (previously given 1g dosing on 10/13 and 10/14/17) Subjective: afebrile. continues with abd pain but states it is slightly less each day. having loose stools about 3-4 times a day. c/o nausea. no vomiting. denies sob. picc line in place. Refused Ct scan earlier today, but has agreed to it now. Objective: Vital Signs Temp Pulse Resp BP Pulse Ox 36.7 C 71 12 110/69 95 10/17/17 07:34 10/17/17 07:34 10/17/17 07:34 10/17/17 07:34 10/17/17 07:34 Laboratory Results 10/17/17 06:00 10/17/17 06:00 10/16/17 10/17/17 10/18/17 05:59 05:59 05:59 Intake Total 750 640 Output Total 400 1250 Balance 350 -610 ESR 97 MM/HR (0-30) H 10/14/17 03:34 C-Reactive Protein 412.1 mg/L (<10.0) H 10/14/17 03:34 - Physical Exam General Appearance: alert, no apparent distress Respiratory: lungs clear Cardiac/Chest: regular rate, rhythm Extremities: No swelling Abdomen: normal bowel sounds, distended, tender (to mild touch. guarding) Skin: No erythema ICD10 Worksheet Patient Problems: Problems Problem Status Onset Diverticulitis Acute Cardiomyopathy due to hypertension Acute Chest pain Acute Congestive heart failure Acute Elevated troponin I level Acute Hypertension Acute NICM (nonischemic cardiomyopathy) Acute Ventricular arrhythmia Acute
--- NOTE | 2017-10-17 11:18 | ASMTCMCOM ---
CM Note CM Note Notes: 10/17/2017 Case Management Note [facility] able to accept pt. Case Management d/c poc: Home with [facility] RN and PT. Case Management to follow for possible home IV antibiotic needs. Date Signed: 10/17/2017 11:18 AM Electronically Signed By:Rachel Fields RN
[2017-10-17] MEDS: HYDROCODONE/APAP 5/325 TAB PO PRN ×2 (11:27→20:23)
--- NOTE | 2017-10-17 16:24 | HOSPPROG ---
Hospitalist Progress Note Assessment/Plan: * Cecal diverticulitis with phlegmon -repeat CT without abscess -slow improvement -will likely need discharge with IV abx - prolonged therapy * Relative hypotension - she is not tolerating her usual home meds -hold lasix, coreg, losartan until BP improves * Chronic systolic CHF - EF 30% (non-ischemic) * V tach s/p AICD * CKD - at baseline creatinine 1.8 * Adrenal adenoma - outpatient work-up * Possible undiagnosed psych disorder -consult Pam Foster Subjective: RLQ pain the same Objective: Vital Signs Temp Pulse Resp BP Pulse Ox 36.4 C 73 13 106/73 96 10/17/17 15:31 10/17/17 15:31 10/17/17 15:31 10/17/17 15:31 10/17/17 15:31 Laboratory Results 10/17/17 06:00 10/17/17 06:00 10/16/17 10/17/17 10/18/17 05:59 05:59 05:59 Intake Total 750 640 Output Total 400 1250 Balance 350 -610 PT 13.9 SEC (12.0-15.0) 10/13/17 04:25 INR 1.05 (0.83-1.16) 10/13/17 04:25 - Physical Exam Constitutional: no apparent distress, appears nourished, not in pain Cardiovascular: regular rate and rhythym, no murmur, rub, or gallop Respiratory: no respiratory distress, no rales or rhonchi, clear to auscultation Gastrointestinal: tenderness (RLQ), distension, No guarding, No rebound Skin: no rashes or abrasions, no fluctuance, no induration Neurologic: AAOx3, sensation intact bilaterally Psychiatric: interacting appropriately, not anxious, not encephalopathic, thought process linear ICD10 Worksheet Patient Problems: Problems Problem Status Onset Diverticulitis Acute Cardiomyopathy due to hypertension Acute Chest pain Acute Congestive heart failure Acute Elevated troponin I level Acute Hypertension Acute NICM (nonischemic cardiomyopathy) Acute Ventricular arrhythmia Acute
[2017-10-17] MEDS: ROSUVASTATIN CALCIUM 10 MG TAB PO SCH (20:23)
[2017-10-17] MEDS: Febuxostat [Uloric] 40 MG PO SCH (22:27)
[2017-10-18] MEDS: ERTAPENEM IVP SCH (07:39)
[2017-10-18] MEDS: HYDROCODONE/APAP 5/325 TAB PO PRN (07:41)
[2017-10-18] MEDS: ASPIRIN EC 81 MG TAB PO SCH (07:42)
[2017-10-18] MEDS: FUROSEMIDE 20 MG TAB PO SCH ×2 (07:42→16:03)
[2017-10-18] MEDS: CARVEDILOL 25 MG TAB PO SCH ×2 (07:42→17:54)
[2017-10-18] MEDS: FLUTICASONE NASAL 120 SPRAYS/16 GM MDI EACHNARE SCH (07:43)
[2017-10-18 08:00] LABS: PLATELET COUNT 249 10^3/uL (150-400)
--- NOTE | 2017-10-18 11:16 | PCMIDPN ---
Assessment/Plan: # diverticulitis with associated phlegmon, persistent periumbilical and left lower quadrant pain, possibly slight improvement with increased ability to ambulate since my last exam & bandemia has resolved. CT yesterday shows no improvement but no worsening. --creatinine clearance in the mid 30s, continue renal dosed ertapenem; continuing ertapenem for now due to underlying nausea which may be exacerbated by metronidazole and potential need for ease of administration as an outpatient --consider have surgery re-evaluate # Hypoxia: no focal infiltrate c/w PNA on CXR. Management per hospitalist # Renal insufficiency --CrCl mid-30 + frail , continue dose adjusted ertapenem meds ertapenem 500mg IV daily, #6 micro: no data Subjective: still with nausea no vomiting, c/o persistent erinn-umbilical abdominal pain but feels slightly better, able to walk a little better than 2 days ago liquid BM at 3am Objective: Vital Signs Temp Pulse Resp BP Pulse Ox 36.9 C 82 16 132/81 H 93 10/18/17 07:19 10/18/17 07:19 10/18/17 07:19 10/18/17 07:19 10/18/17 07:19 Laboratory Results 10/18/17 07:40 10/18/17 07:40 10/17/17 10/18/17 10/19/17 05:59 05:59 05:59 Intake Total 640 1200 Output Total 1250 700 200 Balance -610 500 -200 ESR 97 MM/HR (0-30) H 10/14/17 03:34 C-Reactive Protein 412.1 mg/L (<10.0) H 10/14/17 03:34 - Physical Exam General Appearance: alert, no apparent distress, obese Respiratory: crackles (L base), No accessory muscle use Neck: supple Cardiac/Chest: regular rate, rhythm Extremities: No pedal edema Abdomen: normal bowel sounds, soft, distended, tender (periumbilical region and LLQ), No peritoneal signs Pelvic Exam: No rojo Skin: pallor, No jaundice, No rash Neuro/Psych: alert, normal mood/affect, oriented x 3 - Line/s RUE PICC Lines: No drainage, No erythema - Time Spent With Patient Time Spent with Patient: greater than 35 minutes (care coordinated with Dr. Timmons, personally reviewed CXR) Time Spent with Patient: Greater than 35 minutes spent on this patients care, greater than 50% of time spent counseling, educating, and coordinating care regarding the above mentioned plan. ICD10 Worksheet Patient Problems: Problems Problem Status Onset Diverticulitis Acute Cardiomyopathy due to hypertension Acute Chest pain Acute Congestive heart failure Acute Elevated troponin I level Acute Hypertension Acute NICM (nonischemic cardiomyopathy) Acute Ventricular arrhythmia Acute
--- NOTE | 2017-10-18 11:52 | ASMTCMCOM ---
CM Note CM Note Notes: 10/18/2017 Case Management Note Met w/patient to discuss PT recommendation for SNF rehab. Pt wants to remain in [facility], faxed referrals to [facility] and [facility] at pt request. Pt expressed concern on impact missing work was having on ability to make rent payment for next month. Offered resources, pt declined. Pt expressed reservations staying in SNF but agreeable to referrals. Pt plans to continue to discuss w/PT need for SNF as d/c date comes closer. Discussed alternative of 08/05 home care with home health. Pt unable to afford private pay for unskilled support and does not feel friends or famiy can take time off of work to stay with her for long lengths of time. Case Management d/c poc: To SNF rehab pending acceptance. Case Management to follow. Date Signed: 10/18/2017 11:51 AM Electronically Signed By:Rachel Fields RN
--- NOTE | 2017-10-18 17:29 | HOSPPROG ---
Hospitalist Progress Note Assessment/Plan: * Cecal diverticulitis with phlegmon -repeat CT without abscess -slow improvement -will likely need discharge with IV abx - prolonged therapy -surgery to re-eval today * Relative hypotension - improved -restart meds * Chronic systolic CHF - EF 30% (non-ischemic) * V tach s/p AICD * CKD - at baseline creatinine 1.8 * Adrenal adenoma - outpatient work-up * Possible undiagnosed psych disorder -consult psych Subjective: no change Objective: Vital Signs Temp Pulse Resp BP Pulse Ox 36.3 C 83 18 138/79 H 98 10/18/17 15:42 10/18/17 15:42 10/18/17 15:42 10/18/17 15:42 10/18/17 15:42 Laboratory Results 10/18/17 07:40 10/18/17 07:40 10/17/17 10/18/17 10/19/17 05:59 05:59 05:59 Intake Total 640 1200 Output Total 1250 700 400 Balance -610 500 -400 PT 13.9 SEC (12.0-15.0) 10/13/17 04:25 INR 1.05 (0.83-1.16) 10/13/17 04:25 cxr - negative d/w dr. irvin and dr. quiros - surgery to re-eval - Physical Exam Constitutional: no apparent distress, appears nourished, not in pain Cardiovascular: regular rate and rhythym, no murmur, rub, or gallop Respiratory: no respiratory distress, no rales or rhonchi, clear to auscultation Gastrointestinal: tenderness (RLQ), distension, No guarding, No rebound Skin: no rashes or abrasions, no fluctuance, no induration Neurologic: AAOx3, sensation intact bilaterally Psychiatric: interacting appropriately, not anxious, not encephalopathic, thought process linear ICD10 Worksheet Patient Problems: Problems Problem Status Onset Diverticulitis Acute Cardiomyopathy due to hypertension Acute Chest pain Acute Congestive heart failure Acute Elevated troponin I level Acute Hypertension Acute NICM (nonischemic cardiomyopathy) Acute Ventricular arrhythmia Acute
--- NOTE | 2017-10-18 21:15 | SOAPPROG ---
SOAP Progress Note Assessment/Plan: Assessment: S TO SEE 62-YEAR-OLD FEMALE WITH CONTINUED RIGHT LOWER QUADRANT PAIN AND APPARENT PHLEGMON ON CT SCAN BUT WITH NORMAL APPENDIX SHE IS AFEBRILE WITH NORMAL WHITE COUNT BUT ELEVATED ESR HEENT NONICTERIC WITHOUT ADENOPATHY AND NO ORAL LESIONS CHEST CLEAR COR REGULAR RHYTHM ABDOMEN SOFT, DISTENDED, DECREASED BOWEL SOUNDS, TENDER IN THE RIGHT LOWER QUADRANT WITH SOME GUARDING. NO OBVIOUS HERNIAS SCAN SUGGESTS CECAL DIVERTICULITIS Plan: FOLLOW ON IV ANTIBIOTICS/IF NOT IMPROVING SOON TO NEED TO CONSIDER LAPAROTOMY POSSIBLE RIGHT COLECTOMY/SHE DOES NOT APPEAR TO BE TOXIC AT THIS POINT 10/18/17 21:13 Objective: Vital Signs Temp Pulse Resp BP Pulse Ox 36.8 C 93 15 144/73 H 99 10/18/17 19:40 10/18/17 19:40 10/18/17 19:40 10/18/17 19:40 10/18/17 19:40 Laboratory Results 10/18/17 07:40 10/18/17 07:40 10/17/17 10/18/17 10/19/17 05:59 05:59 05:59 Intake Total 640 1200 600 Output Total 1250 700 400 Balance -610 500 200 PT 13.9 SEC (12.0-15.0) 10/13/17 04:25 INR 1.05 (0.83-1.16) 10/13/17 04:25 ICD10 Worksheet Patient Problems: Problems Problem Status Onset Diverticulitis Acute Cardiomyopathy due to hypertension Acute Chest pain Acute Congestive heart failure Acute Elevated troponin I level Acute Hypertension Acute NICM (nonischemic cardiomyopathy) Acute Ventricular arrhythmia Acute
[2017-10-18] MEDS: ROSUVASTATIN CALCIUM 10 MG TAB PO SCH (22:54)
[2017-10-18] MEDS: oxyCODONE IR 5 MG TAB PO PRN (23:52)
[2017-10-19] MEDS: Febuxostat [Uloric] 40 MG PO SCH ×2 (02:54→21:49)
[2017-10-19] MEDS: ERTAPENEM IVP SCH (06:07)
[2017-10-19 06:37] LABS: PLATELET COUNT 269 10^3/uL (150-400)
[2017-10-19] MEDS: FUROSEMIDE 20 MG TAB PO SCH ×2 (07:34→16:01)
[2017-10-19] MEDS: ASPIRIN EC 81 MG TAB PO SCH (09:19)
[2017-10-19] MEDS: LOSARTAN POTASSIUM 50 MG TAB PO SCH (09:19)
[2017-10-19] MEDS: CARVEDILOL 25 MG TAB PO SCH ×2 (09:19→18:23)
[2017-10-19] MEDS: FLUTICASONE NASAL 120 SPRAYS/16 GM MDI EACHNARE SCH (09:26)
[2017-10-19] MEDS ORDERED: FLU VACC QS 2017-18 (3YR+)/PF 0.5 ML SYR (FLUARIX QUAD) IM ONE (10:30)
--- NOTE | 2017-10-19 12:07 | SOAPPROG ---
IMAN Progress Note Assessment/Plan: Assessment: S TO SEE 62-YEAR-OLD FEMALE WITH CONTINUED RIGHT LOWER QUADRANT PAIN AND APPARENT PHLEGMON ON CT SCAN BUT WITH NORMAL APPENDIX SHE IS AFEBRILE WITH NORMAL WHITE COUNT BUT ELEVATED ESR HEENT NONICTERIC WITHOUT ADENOPATHY AND NO ORAL LESIONS CHEST CLEAR COR REGULAR RHYTHM ABDOMEN SOFT, DISTENDED, DECREASED BOWEL SOUNDS, TENDER IN THE RIGHT LOWER QUADRANT WITH SOME GUARDING. NO OBVIOUS HERNIAS SCAN SUGGESTS CECAL DIVERTICULITIS Plan: FOLLOW ON IV ANTIBIOTICS/IF NOT IMPROVING SOON TO NEED TO CONSIDER LAPAROTOMY POSSIBLE RIGHT COLECTOMY/SHE DOES NOT APPEAR TO BE TOXIC AT THIS POINT 10/18/17 21:13 10/19/17 12:06 PATIENT IS PLEASANT AND MORE COMFORTABLE TODAY/BEREAVEMENT COUNSELOR IN THE RIGHT LOWER QUADRANT AND VERY TENDER IN HER UMBILICUS IS A PALPABLE INCARCERATED FAT IN HER UMBILICAL HERNIA WHICH IS SYMPTOMATIC BUT NO BOWEL WAS SEEN ON THE CT SCAN RIGHT LOWER QUADRANT PAIN IS DECREASING/WBC IS NORMAL/CREATININE DOWN TO 1.5 PLAN CONTINUE OBSERVATION FOR RIGHT LOWER QUADRANT INFLAMMATION BUT CONSIDER SURGICAL REPAIR OF UMBILICAL HERNIA Objective: Vital Signs Temp Pulse Resp BP Pulse Ox 36.9 C 72 12 129/81 H 93 10/19/17 12:00 10/19/17 12:00 10/19/17 12:00 10/19/17 12:00 10/19/17 12:00 Laboratory Results 10/19/17 06:15 10/19/17 06:15 10/18/17 10/19/17 10/20/17 05:59 05:59 05:59 Intake Total 1200 950 Output Total 700 400 Balance 500 550 PT 13.9 SEC (12.0-15.0) 10/13/17 04:25 INR 1.05 (0.83-1.16) 10/13/17 04:25 ICD10 Worksheet Patient Problems: Problems Problem Status Onset Diverticulitis Acute Cardiomyopathy due to hypertension Acute Chest pain Acute Congestive heart failure Acute Elevated troponin I level Acute Hypertension Acute NICM (nonischemic cardiomyopathy) Acute Ventricular arrhythmia Acute
--- NOTE | 2017-10-19 14:58 | ASMTCMCOM ---
CM Note CM Note Notes: CM spoke w/ Julianne, RN regarding d/c POC. Pt has been concerned about not being able to pay her rent. CM wrote pt a letter of excuse and submitted it to an email that pt requested CM send it to. CM also provided pt w/ a copy. Pt also refusing SNF at this time and agreeable to having HC follow once medically stable. CM to follow. Plan: HC; PT, OT, RN Date Signed: 10/19/2017 02:58 PM Electronically Signed By:ALFA Javed
[2017-10-19] MEDS: oxyCODONE IR 5 MG TAB PO PRN ×2 (16:01→21:59)
--- NOTE | 2017-10-19 17:48 | HOSPPROG ---
Hospitalist Progress Note Assessment/Plan: * Cecal diverticulitis with phlegmon -repeat CT without abscess -slow improvement -will likely need discharge with IV abx - prolonged therapy -consider surgery if she does not improve * Chronic systolic CHF - EF 30% (non-ischemic) -tolerating home med regimen * V tach s/p AICD * CKD - at baseline creatinine 1.8 * Adrenal adenoma - outpatient work-up * Possible undiagnosed psych disorder -psych consult pending Subjective: No complaints. Objective: Vital Signs Temp Pulse Resp BP Pulse Ox 36.8 C 76 12 119/72 94 10/19/17 15:17 10/19/17 15:17 10/19/17 15:17 10/19/17 15:17 10/19/17 15:17 Laboratory Results 10/19/17 06:15 10/19/17 06:15 10/18/17 10/19/17 10/20/17 05:59 05:59 05:59 Intake Total 8549 292 1173 Output Total 700 400 Balance 147 661 1408 PT 13.9 SEC (12.0-15.0) 10/13/17 04:25 INR 1.05 (0.83-1.16) 10/13/17 04:25 - Physical Exam Constitutional: no apparent distress, appears nourished, not in pain Cardiovascular: regular rate and rhythym, no murmur, rub, or gallop Respiratory: no respiratory distress, no rales or rhonchi, clear to auscultation Gastrointestinal: normoactive bowel sounds, soft, non-tender abdomen, no palpable masses Skin: no rashes or abrasions, no fluctuance, no induration Neurologic: AAOx3, sensation intact bilaterally Psychiatric: interacting appropriately, not anxious, not encephalopathic, thought process linear ICD10 Worksheet Patient Problems: Problems Problem Status Onset Diverticulitis Acute Cardiomyopathy due to hypertension Acute Chest pain Acute Congestive heart failure Acute Elevated troponin I level Acute Hypertension Acute NICM (nonischemic cardiomyopathy) Acute Ventricular arrhythmia Acute
[2017-10-19] MEDS: ENOXAPARIN 40 MG/0.4 ML SYR SC SCH (18:22)
--- NOTE | 2017-10-19 18:53 | PCMIDPN ---
Assessment/Plan: Assessment/Plan: * Diverticulosis with erinn diverticular phlegmon: Overall markedly improved but still with significant lower quadrant pain bilaterally. Surgery notes reviewed. Continue ertapenem and clinical follow-up. Will increase dose of ertapenem to 1 g daily based on improved creatinine today. * Umbilical hernia: Dr. Rothman note reviewed with possible need for surgical management given incarceration. 10/19/17 18:51 Subjective: Patient feels markedly improved but still has bilateral lower quadrant and umbilical pain. Was able to eat this a.m.. Objective: Vital Signs Temp Pulse Resp BP Pulse Ox 36.8 C 77 12 133/80 H 94 10/19/17 15:17 10/19/17 18:23 10/19/17 15:17 10/19/17 18:23 10/19/17 15:17 Laboratory Results 10/19/17 06:15 10/19/17 06:15 10/18/17 10/19/17 10/20/17 05:59 05:59 05:59 Intake Total 3778 754 6184 Output Total 700 400 Balance 884 199 4555 ESR 97 MM/HR (0-30) H 10/14/17 03:34 C-Reactive Protein 412.1 mg/L (<10.0) H 10/14/17 03:34 Ertapenem # 7 - Physical Exam General Appearance: alert, no apparent distress EENT: No scleral icterus, No thrush Respiratory: lungs clear, No respiratory distress Cardiac/Chest: regular rate, rhythm, systolic murmur (2/6 left upper sternal border) Abdomen: tender (Bilateral lower quadrants and an umbilical area where firm induration present) - Line/s RUE PICC Lines: No drainage, No erythema ICD10 Worksheet Patient Problems: Problems Problem Status Onset Diverticulitis Acute Cardiomyopathy due to hypertension Acute Chest pain Acute Congestive heart failure Acute Elevated troponin I level Acute Hypertension Acute NICM (nonischemic cardiomyopathy) Acute Ventricular arrhythmia Acute
[2017-10-19] MEDS: ROSUVASTATIN CALCIUM 10 MG TAB PO SCH (22:00)
[2017-10-20] MEDS: ERTAPENEM 1 GM VIAL IVP SCH (05:59)
[2017-10-20] MEDS: FUROSEMIDE 20 MG TAB PO SCH ×2 (05:59→15:11)
[2017-10-20] MEDS ORDERED: ERTAPENEM IVP SCH (06:00)
[2017-10-20 06:39] LABS: PLATELET COUNT 366 10^3/uL (150-400)
[2017-10-20] MEDS: ASPIRIN EC 81 MG TAB PO SCH (08:53)
[2017-10-20] MEDS: LOSARTAN POTASSIUM 50 MG TAB PO SCH (08:53)
[2017-10-20] MEDS: CARVEDILOL 25 MG TAB PO SCH ×2 (08:53→20:35)
[2017-10-20] MEDS: FLUTICASONE NASAL 120 SPRAYS/16 GM MDI EACHNARE SCH (08:54)
[2017-10-20] MEDS: ENOXAPARIN 40 MG/0.4 ML SYR SC SCH (08:54)
--- NOTE | 2017-10-20 10:19 | PCMIDPN ---
Assessment/Plan: 1. Cecal diverticulitis with erinn diverticular phlegmon: Continues to have significant bilateral abdominal discomfort. Going to the OR today--type of procedure that will transpire unclear. Continue ertapenem as is. 2. Umbilical hernia: Extremely tender as well. To have this repaired in the OR today. Subjective: Patient tells me she is going to the operating room. I corroborated this with the patient's nurse. Type of procedure is unclear at this point in time. Will also have umbilical hernia repaired. Patient denies nausea or vomiting, but continues to have significant abdominal pain. No diarrhea. Objective: Ertapenem 1 g IV daily day 8 T-max 37.2degrees Vital Signs Temp Pulse Resp BP Pulse Ox 36.9 C 74 14 133/72 H 97 10/20/17 08:00 10/20/17 08:00 10/20/17 08:00 10/20/17 08:00 10/20/17 08:00 Laboratory Results 10/20/17 06:00 10/20/17 06:00 10/19/17 10/20/17 10/21/17 05:59 05:59 05:59 Intake Total 950 1300 Output Total 400 Balance 550 1300 ESR 97 MM/HR (0-30) H 10/14/17 03:34 C-Reactive Protein 412.1 mg/L (<10.0) H 10/14/17 03:34 No microbiology - Physical Exam General Appearance: no apparent distress, obese EENT: No scleral icterus, No thrush Respiratory: lungs clear Cardiac/Chest: regular rate, rhythm Abdomen: distended, tender, other (Umbilicus distended, tender and firm. No obvious erythema of the skin. Abdomen distended and tender throughout.) ICD10 Worksheet Patient Problems: Problems Problem Status Onset Diverticulitis Acute Cardiomyopathy due to hypertension Acute Chest pain Acute Congestive heart failure Acute Elevated troponin I level Acute Hypertension Acute NICM (nonischemic cardiomyopathy) Acute Ventricular arrhythmia Acute
--- NOTE | 2017-10-20 13:51 | SOAPPROG ---
IMAN Progress Note Assessment/Plan: Assessment: A 62-year-old female with abdominal pain secondary to incarcerated inguinal hernia, possibly diverticulitis. The patient reports still in significant pain although was tolerating regular diet this morning at the time of the appointment. Physical exam Comfortable Abdomen extremely tender palpation, even light touch over umbilical hernia and diffusely around abdomen. Plan: To surgery today, repair of incarcerated umbilical hernia, diagnostic laparoscopy Patient seen examined by Dr. Rothman, consent placed in front of chart, patient is on Invanz 10/20/17 13:49 Objective: Vital Signs Temp Pulse Resp BP Pulse Ox 36.4 C 77 15 121/79 H 93 10/20/17 11:31 10/20/17 11:31 10/20/17 11:31 10/20/17 11:31 10/20/17 11:31 Laboratory Results 10/20/17 06:00 10/20/17 06:00 10/19/17 10/20/17 10/21/17 05:59 05:59 05:59 Intake Total 950 1300 Output Total 400 Balance 550 1300 PT 13.9 SEC (12.0-15.0) 10/13/17 04:25 INR 1.05 (0.83-1.16) 10/13/17 04:25 ICD10 Worksheet Patient Problems: Problems Problem Status Onset Diverticulitis Acute Cardiomyopathy due to hypertension Acute Chest pain Acute Congestive heart failure Acute Elevated troponin I level Acute Hypertension Acute NICM (nonischemic cardiomyopathy) Acute Ventricular arrhythmia Acute
[2017-10-20] MEDS: oxyCODONE IR 5 MG TAB PO PRN ×2 (14:12→20:35)
--- NOTE | 2017-10-20 15:04 | ASMTCMCOM ---
CM Note CM Note Notes: CM met w/ pt for dispo planning. Pt reports that she spoke w/ her friend that went to rehab at [facility] and had a great experience. Pt would like a referral made there. [facility] is unable to accept pt. [facility] reports that pts Medicaid lapsed and she would owe $130/day. Pt reports that she will be unable to afford that. CM spoke w/ [employer] and she reports that pts Medicaid [place] is active for the month of October. Liyah from [facility] will re-run insurance. Pt is scheduled to have abdominal surgery today. CM assisted pt in paying her rent. Pt was successful in paying her rent and speaking to her landlord. CM to follow. Plan: SNF Date Signed: 10/20/2017 03:04 PM Electronically Signed By:ALFA Javed
--- NOTE | 2017-10-20 17:00 | HOSPPROG ---
Hospitalist Progress Note Assessment/Plan: Assessment: 62-year-old female presents with acute diverticulitis complicated by incarcerated umbilical hernia Plan: 1. Diverticulitis. Acute, new problem this provider, further workup indicated. CT demonstrating phlegmon, but repeat imaging without abscess, patient continues to experience abdominal tenderness indicative that her process may not be clinically resolving -patient will undergo surgical exploration by Dr. Rothman when he repairs her umbilical hernia today -will continue on IV ertapenem, discussed with Dr. Sury Corbin, recommends ongoing IV antibiotic therapy -will continue to monitor white blood cell count -recommend slow advancement of diet postoperatively 2. Chronic systolic congestive heart failure. Nonischemic, ejection fraction 30%, no recent anginal symptoms -RCRI score of 2, conferring a 2.5 to 3.5% perioperative risk of cardiovascular morbidity and/or mortality -patient is an intermediate risk surgical candidate for an intermediate risk surgery -recommend proceeding with surgery without further preoperative cardiac risk stratification as her current clinical state seems to be optimized, renal function improving, no angina, no acute CHF -monitor volume status closely, strict I&Os, daily weights 3. Ventricular tachycardia. Chronic, status post AICD placement -continue monitor on telemetry 4. Chronic kidney disease stage III. Patient's serum creatinine level has ranged between 1.6 and 1.9 during this hospitalization, currently downtrend is 1.6 -continue monitor daily 5. Adrenal adenoma. Per abdominal imaging, outpatient workup 6. Possible undiagnosed mental health illness. Psychiatry consultation requested by Dr. Timmons 7. Incarcerated umbilical hernia. Appreciate General surgery consultation by Dr. Rothman, patient going to OR today Diet. NPO, pending surgery Prophylaxis. High risk patient, currently SCDs, holding pharm given surgery Code. Full Despite. Anticipated discharge uncertain this time, clinically unresolved diverticulitis. Subjective: anxious about surgery, hungry Objective: Vital Signs Temp Pulse Resp BP Pulse Ox 36.8 C 75 16 121/72 H 95 10/20/17 16:26 10/20/17 16:26 10/20/17 16:26 10/20/17 16:26 10/20/17 16:26 Laboratory Results 10/20/17 06:00 10/20/17 06:00 10/19/17 10/20/17 10/21/17 05:59 05:59 05:59 Intake Total 950 1300 Output Total 400 Balance 550 1300 PT 13.9 SEC (12.0-15.0) 10/13/17 04:25 INR 1.05 (0.83-1.16) 10/13/17 04:25 - Physical Exam Constitutional: no apparent distress, appears nourished, uncomfortable, No not in pain (mild in abdomen) Cardiovascular: systolic murmur (II/ at apex), edema (trace bilat LE), No irregularly irregular, No tachycardia Respiratory: no respiratory distress, no rales or rhonchi, clear to auscultation , No rhonchi Gastrointestinal: normoactive bowel sounds, tenderness (diffusely throughout, L > R), guarding (voluntary), distension (mild) Neurologic: AAOx3, sensation intact bilaterally, No weakness, No facial droop Psychiatric: interacting appropriately, not anxious, not encephalopathic, thought process linear ICD10 Worksheet Patient Problems: Problems Problem Status Onset Diverticulitis Acute Cardiomyopathy due to hypertension Acute Chest pain Acute Congestive heart failure Acute Elevated troponin I level Acute Hypertension Acute NICM (nonischemic cardiomyopathy) Acute Ventricular arrhythmia Acute
[2017-10-20] MEDS ORDERED: BUPIVACAINE 0.5% 30 ML SDV ONE (17:03)
[2017-10-20] MEDS ORDERED: HEPARIN 1000 UNIT/1 ML MDV ONE (17:03)
[2017-10-20] MEDS ORDERED: ceFAZolin 1 GM/5 ML SYR ONE (17:04)
--- NOTE | 2017-10-20 17:06 | PDANEPAE ---
ANE Past Medical History - Cardiovascular History Hx Hypertension: Yes Hx Coronary Artery / Peripheral Vascular Disease: Yes Hx CHF / Valvular Disease: Yes - Pulmonary History Hx Asthma/Reactive Airway Disease: Yes Hx Oxygen in Use at Home: No Hx Sleep Apnea: No Sleep Apnea Screening Result - Last Documented: Negative - Endocrine History Hx Diabetes: Yes - Renal History Hx Renal Disorders: Yes - Chronic Pain History Chronic Pain: Yes ANE Review of Systems Review of Systems: - Pacemaker Pacemaker Type: Permanent Pacer/Defib Pacemaker Medical Radiation Dosimetrist: [employer] Pacemaker Model: TELIGEN 100 Pacemaker Mode: VVI Date Pacemaker Last Checked: last visit to [facility] ANE Patient History - Allergies Allergies/Adverse Reactions: ketorolac tromethamine [From Toradol] Allergy (Intermediate, Verified 10/13/17 04:36) tramadol Allergy (Intermediate, Verified 10/13/17 04:36) lips and legs "puff up" - Home Medications Home Medications: Febuxostat [ULORIC] 40 mg PO HS 11/20/16 [Last Taken 10/12/17] Furosemide [Lasix 20 MG (*)] 20 mg PO BID AT 7AM AND 3PM 01/27/17 [Last Taken ] Albuterol [Proventil Inhaler HFA (*)] 1 - 2 puffs IH Q4H PRN 10/13/17 [Last Taken Unknown] Carvedilol [Coreg (*)] 25 mg PO BIDMEAL 10/13/17 [Last Taken 10/12/17] Fluticasone Nasal [Flonase Nasal Pruden (RX)] 1 sprays NASAL DAILY 10/13/17 [ Last Taken Unknown] Losartan Potassium [Cozaar 50 mg (*)] 50 mg PO DAILY 10/13/17 [Last Taken ] Rosuvastatin Calcium [Crestor] 10 mg PO HS 10/13/17 [Last Taken 10/11/17] - NPO status NPO Since - Liquids (Date): 10/20/17 NPO Since - Liquids (Time): 09:00 NPO Since - Solids (Date): 10/20/17 NPO Since - Solids (Time): 09:00 - Smoking Hx Smoking Status: Light smoker ANE Labs/Vital Signs - Labs Result Diagrams: 10/20/17 06:00 10/20/17 06:00 - Vital Signs Blood Pressure: 121/72 Heart Rate: 75 Respiratory Rate: 16 O2 Sat (%): 95 Height: 165.1 cm Weight: 75.4 kg ANE Physical Exam - Airway Mallampati Score: Class 2 - ASA Status ASA Status: III ANE Anesthesia Plan Anesthesia Plan: general endotracheal anesthesia
[2017-10-20] MEDS ORDERED: MIDAZOLAM 2 MG/2 ML VIAL ONE (17:29)
[2017-10-20] MEDS ORDERED: fentaNYL 100 MCG/2 ML INJ ONE ×2 (17:29→19:08)
[2017-10-20] MEDS ORDERED: PROPOFOL 200 MG/20 ML VIAL ONE ×2 (17:29→18:23)
[2017-10-20] MEDS ORDERED: ROCURONIUM 50 MG/5 ML VIAL ONE (17:33)
[2017-10-20] MEDS ORDERED: ONDANSETRON 4 MG/2 ML VIAL ONE ×2 (17:33→19:13)
[2017-10-20] MEDS ORDERED: SUGAMMADEX SODIUM 200 MG/2 ML VIAL IVP ONE (18:40)
--- NOTE | 2017-10-20 18:56 | POSTOPPROG ---
Post Op Note Date of Operation: 10/20/17 Surgeon: Gian Rothman [facility] Anesthesiologist: dawood Anesthesia: GET(General Endotracheal) Pre-op Diagnosis: incarcerated umbilical hernia, rlq pain Post-op Diagnosis: same with rih and perforated appendix with abscess Indication: pain Procedure: open repair of incarcerated umbilical hernia/ laparoscopy and perforated ap Findings: incarcerated umbilical hernia with omentum, perfed appe with abscess, incid Inf/Abcess present in the surg proc area at time of surgery?: Yes Depth: Organ Space EBL: Minimal Complications: 0 Drains: Peewee Newberry Specimen(s): hernia sac with omentum, appendix
[2017-10-20] MEDS ORDERED: OXYCODONE/APAP 5/325 TAB PO PRN (19:00)
[2017-10-20] MEDS ORDERED: HYDROmorphONE/DILAUDID 1 MG/ML INJ IVP PRN (19:00)
[2017-10-20] MEDS ORDERED: NALOXONE HCL 0.4 MG/ML INJ IVP PRN (19:05)
--- NOTE | 2017-10-20 19:07 | POSTANESTH ---
Post Anesthetic Evaluation Cardiovascular Status: Similar to Pre-Op Cond Respiratory Status: Similar to Pre-op Cond. Level of Consciousness/Mental Status: Can Participate in Eval Pain Control: Adequate, Prn Tx Ordered Nausea/Vomiting Control: Adequate, Prn Tx Ordered Complications Possibly Related to Anesthesia: None Noted
[2017-10-20] MEDS: fentaNYL 100 MCG/2 ML INJ IVP PRN ×2 (19:08→19:43)
[2017-10-20] MEDS: ONDANSETRON 4 MG/2 ML VIAL IVP PRN (19:25)
[2017-10-20] MEDS: ROSUVASTATIN CALCIUM 10 MG TAB PO SCH (20:35)
[2017-10-20] MEDS: HYDROmorphONE/DILAUDID 1 MG/ML INJ IVP PRN (21:21)
[2017-10-20] MEDS: Febuxostat [Uloric] 40 MG PO SCH (23:49)
[2017-10-21] MEDS: oxyCODONE IR 5 MG TAB PO PRN ×2 (00:14→14:50)
[2017-10-21] MEDS: HYDROmorphONE/DILAUDID 1 MG/ML INJ IVP PRN ×2 (00:14→23:52)
[2017-10-21] MEDS: ERTAPENEM 1 GM VIAL IVP SCH (06:21)
[2017-10-21 06:32] LABS: PLATELET COUNT 322 10^3/uL (150-400)
[2017-10-21] MEDS: FUROSEMIDE 20 MG TAB PO SCH ×2 (07:23→14:51)
[2017-10-21] MEDS: ONDANSETRON 4 MG/2 ML VIAL IVP PRN (10:10)
[2017-10-21] MEDS: HYDROCODONE/APAP 5/325 TAB PO PRN (10:10)
[2017-10-21] MEDS: ASPIRIN EC 81 MG TAB PO SCH (10:11)
[2017-10-21] MEDS: LOSARTAN POTASSIUM 50 MG TAB PO SCH (10:12)
[2017-10-21] MEDS: CARVEDILOL 25 MG TAB PO SCH ×2 (10:18→18:38)
[2017-10-21] MEDS: FLUTICASONE NASAL 120 SPRAYS/16 GM MDI EACHNARE SCH (14:53)
[2017-10-21] MEDS ORDERED: SODIUM BICARBONATE 650 MG TAB PO PRN (15:12)
[2017-10-21] MEDS ORDERED: CALCIUM CARBONATE 500 MG CHEWABLE TAB PO PRN (15:12)
[2017-10-21] MEDS: ENOXAPARIN 40 MG/0.4 ML SYR SC SCH ×2 (16:03→16:06)
--- NOTE | 2017-10-21 16:31 | HOSPPROG ---
Hospitalist Progress Note Assessment/Plan: Assessment: 62-year-old female presents with acute diverticulitis and perforated appendix with abscess complicated by incarcerated umbilical hernia Plan: 1. Diverticulitis. Acute, improving 2. Chronic systolic congestive heart failure. Nonischemic, ejection fraction 30%, no recent anginal symptoms -cont home coerg, ARB, lasix -monitor volume status closely, strict I&Os, daily weights 3. Ventricular tachycardia. Chronic, status post AICD placement -continue monitor on telemetry 4. Chronic kidney disease stage III. Patient's serum creatinine level has ranged between 1.6 and 1.9 during this hospitalization, currently 1.8 -continue monitor daily 5. Adrenal adenoma. Per abdominal imaging, outpatient workup 6. Possible undiagnosed mental health illness. Psychiatry consultation requested by Dr. Timmons 7. Incarcerated umbilical hernia. Omental fat incarceration, POD#1 repair, also has R inguinal hernia, will require subsequent repair 8. Perforated appendix with abscess. Suspect POA, suspect that her symptoms of infxn prior to presentation were the beginning of her appendicitis and then abscess formation -s/p surgical appy by Dr. Rothman POD#1 -requiring ongoing ROYER drain, unclear duration -adv diet to regular today -pain mgmt w/ PO/IV PRN -counseled patient extensively with Dr. Eckert, we recommend 10-14 days IV abx ( likely invanz, given absence of cx data), and would rec either home of infusion center, d/w case mgmt Diet. Regular, smoothies Prophylaxis. High risk patient, currently SCDs, pharm recommended to patient Code. Full Despite. Anticipated discharge uncertain this time, clinically unresolved diverticulitis. Subjective: patient w/ ongoing pain, less, conccerned about diet Objective: Vital Signs Temp Pulse Resp BP Pulse Ox 36.8 C 62 18 112/66 99 10/21/17 12:55 10/21/17 12:55 10/21/17 12:55 10/21/17 12:55 10/21/17 12:55 Laboratory Results 10/21/17 06:18 10/21/17 06:18 10/20/17 10/21/17 10/22/17 05:59 05:59 05:59 Intake Total 1300 750 Output Total 545 Balance 1300 205 PT 13.9 SEC (12.0-15.0) 10/13/17 04:25 INR 1.05 (0.83-1.16) 10/13/17 04:25 - Time Spent With Patient Time Spent with Patient: greater than 35 minutes Time Spent with Patient: Greater than 35 minutes spent on this patients care, greater than 50% of time spent counseling, educating, and coordinating care regarding the above mentioned plan. - Physical Exam Constitutional: no apparent distress, uncomfortable, No not in pain (mild) Cardiovascular: systolic murmur (II/ sternum), No irregularly irregular, No tachycardia, No edema Respiratory: no respiratory distress, no rales or rhonchi, clear to auscultation Gastrointestinal: tenderness (mild to mild depth palpation), other (ROYER in place) , No normoactive bowel sounds (hypoactive), No distension Skin: other (no erythema aroud surg site) Neurologic: AAOx3 Psychiatric: interacting appropriately, not anxious, not encephalopathic, thought process linear ICD10 Worksheet Patient Problems: Problems Problem Status Onset Chest pain Acute Ventricular arrhythmia Acute Cardiomyopathy due to hypertension Acute Hypertension Acute Congestive heart failure Acute NICM (nonischemic cardiomyopathy) Acute Elevated troponin I level Acute Diverticulitis Acute
--- NOTE | 2017-10-21 17:21 | PCMIDPN ---
Assessment/Plan: Assessment/Plan: * Perforated appendicitis with periappendiceal abscess status post appendectomy and abscess drainage: Operative findings yesterday showed evidence of appendicitis with perforated appendix and periappendiceal abscess. Cultures were not obtained. Continue empiric ertapenem. Likely will need 10-14 day course postoperatively. * Umbilical hernia: Operatively repaired yesterday. Time spent, 25 min, of which greater than half was spent in education/counseling /coordination of care related to above findings and discussion of continued plan of care including outpatient IV antibiotic therapy. 10/21/17 17:18 10/21/17 17:20 Subjective: Patient noted to have findings of appendicitis with perforation and abscess formation at time of umbilical hernia repair yesterday. Complains of right lower quadrant pain. Objective: Vital Signs Temp Pulse Resp BP Pulse Ox 37.0 C 66 15 128/65 H 97 10/21/17 17:00 10/21/17 17:00 10/21/17 17:00 10/21/17 17:00 10/21/17 17:00 Laboratory Results 10/21/17 06:18 10/21/17 06:18 10/20/17 10/21/17 10/22/17 05:59 05:59 05:59 Intake Total 1300 750 Output Total 545 Balance 1300 205 ESR 97 MM/HR (0-30) H 10/14/17 03:34 C-Reactive Protein 412.1 mg/L (<10.0) H 10/14/17 03:34 - Physical Exam General Appearance: alert, no apparent distress EENT: No scleral icterus, No thrush Cardiac/Chest: regular rate, rhythm, systolic murmur (2/6 left upper sternal border) Abdomen: distended, tender (Right lower quadrant; drain with serosanguineous output) ICD10 Worksheet Patient Problems: Problems Problem Status Onset Diverticulitis Acute Cardiomyopathy due to hypertension Acute Chest pain Acute Congestive heart failure Acute Elevated troponin I level Acute Hypertension Acute NICM (nonischemic cardiomyopathy) Acute Ventricular arrhythmia Acute
[2017-10-21] MEDS: ROSUVASTATIN CALCIUM 10 MG TAB PO SCH (20:06)
[2017-10-21] MEDS: HYDROmorphONE/DILAUDID 2 MG TAB PO PRN (20:07)
[2017-10-21] MEDS: Febuxostat [Uloric] 40 MG PO SCH (21:29)
--- NOTE | 2017-10-22 04:20 | GCON ---
[f rep st] CONSULTATION DATE OF CONSULTATION: 10/18/2017 HISTORY OF PRESENT ILLNESS: The patient is a 62-year-old female, who has been admitted and complains of continued right lower quadrant pain. She has had a CT scan which shows a normal appendix, but a phlegmon around her cecum. She also has a diverticulosis on the scan. She is presently afebrile wit h a normal white count but her sedimentation rate is elevated and she is eating well, complaining of right lower quadrant pain. She is also noted to have incarcerated omentum on her umbilical hernia wh ich is nonreducible and somewhat tender. She seems to be doing fairly well despite the inflammatory findings on her CT scan. Past history does not show an abdominal surgery. She has had orthopedic contreras rgery on her hand and foot. She also has a defibrillator in place. PAST MEDICAL HISTORY: Includes nonischemic cardiomyopathy which is dramatically improved. ALLERGIES: Possibly to tramadol. MEDICATIONS: Include Uloric, Coreg, Lasix, Lotensin. REVIEW OF SYSTEMS: Reveals that she does not smoke regularly but on occasion, she denies any cardiop ulmonary symptoms at this time, although she has had congestive heart failure in the past. No other major medical problems are listed on a full 10-point review. PHYSICAL EXAMINATION: GENERAL: An alert, cooperative, 62-year-old, black female who is in no acute distress, is afebrile. HEAD and NECK: Reveals no icterus or adenopathy. No oral lesions. Neck is supple and nontender. CHEST: Clear to auscultation and percussion. CARDIAC: Regular rhythm withou t murmurs. ABDOMEN: Soft, she is quite distended, she is tender in the right lower quadrant. She i s also tender around incarcerated umbilical hernia, and in addition, she may have a right inguinal he rnia on exam. EXTREMITIES: Benign, full range of motion, full pulses. NEUROLOGIC: Physiologic and symmetric. PSYCHIATRIC: Reveals her to be oriented, alert and reasonably cooperative. IMPRESSION: Right lower quadrant pain, possibly secondary to diverticulitis, although possibility of appendicitis would still be strong in my mind despite the negative imaging test. PLAN: Follow closely, serial white counts and re-examinations. I do think she is still suspicious f or appendicitis despite the negative imaging findings. /[id number]/MODL
--- NOTE | 2017-10-22 04:56 | GOP ---
[f rep st] OPERATIVE REPORT DATE OF OPERATION: SURGEON: Gian Rothman MD PREOPERATIVE DIAGNOSIS: Incarcerated umbilical hernia and right lower quadrant pain. POSTOPERATIVE DIAGNOSIS: 1. Incarcerated umbilical hernia and right lower quadrant pain with reducible right inguinal hernia. 2. Appendicitis with appendiceal abscess. PROCEDURE PERFORMED: Open repair of incarcerated umbilical hernia and laparoscopy with resection of perforated appendix, and drainage of appendiceal abscess. FINDINGS: The patient was found to have incarcerated umbilical hernia containing some ischemic oment um. She also had a perforated appendix with a periappendiceal abscess in the right lower quadrant. She did have extensive diverticulosis, but no obvious evidence of diverticulitis. She also was found to have a right inguinal hernia, but that was not repairable at this time. DESCRIPTION OF PROCEDURE: Patient taken to the operating room where she received satisfactory genera l endotracheal anesthesia by Dr. Lee. She was placed in supine position, prepped and draped in us ua sterile fashion. An infraumbilical incision was made, carried down through the subcutaneous tiss ue. The umbilical hernia sac was dissected free from surrounding subcutaneous tissue and from the fa scial level. Hemostasis was carefully obtained and the omentum and peritoneal reflection were divide d with electrocautery and 3-0 Vicryl ties. The incarcerated hernia specimen was removed. Attention was then turned to the fascial defect which was cleaned up around all the edges. The laparoscope was introduced. She appeared to have a marked amount of inflammatory changes in the right lower quadran t. Two additional trocars were introduced and the cecum and small bowel were gently freed up away fr om the appendix and cecum. The appendix appeared to be thickened. It was dissected free using the H armonic Scalpel until the base was skeletonized. It was then divided with the Endo-BIB stapler. The specimen was placed in a specimen bag and extracted through the midline port site. In dissecting th e appendix away, an abscess pocket was encountered. Approximately 15-20 cc of purulence was encounte red. This was suctioned free, irrigated free. After completion of the appendectomy, a 15 round sili cone ROYER drain was brought in through one of the trocar sites and placed in the pelvis and up along th e right gutter behind the appendix. The wound was irrigated. Hemostasis was assured. Trocars remov ed under direct vision. Trocar sites were closed with 0 Vicryl for the fascia and 4-0 Monocryl subcu ticular stitch for the skin. The drain was secured at 1 site with a 2-0 silk suture. Because of the purulence, it was elected not to proceed with repair of the right inguinal hernia at this time. Sin ce it was easily reducible, she will have to deal with that in 3 weeks, a separate surgical procedure . FINAL DIAGNOSES: 1. Incarcerated umbilical hernia. 2. Perforated appendicitis with abscess. 3. Incidental right inguinal hernia. /[id number]/MODL
[2017-10-22] MEDS: ERTAPENEM 1 GM VIAL IVP SCH (09:14)
[2017-10-22] MEDS: HYDROmorphONE/DILAUDID 2 MG TAB PO PRN ×3 (09:16→20:32)
[2017-10-22] MEDS: ASPIRIN EC 81 MG TAB PO SCH (09:17)
[2017-10-22] MEDS: CARVEDILOL 25 MG TAB PO SCH ×2 (09:17→18:07)
[2017-10-22] MEDS: FUROSEMIDE 20 MG TAB PO SCH ×2 (09:17→14:54)
[2017-10-22] MEDS: LOSARTAN POTASSIUM 50 MG TAB PO SCH (09:17)
[2017-10-22] MEDS: FLUTICASONE NASAL 120 SPRAYS/16 GM MDI EACHNARE SCH (09:18)
[2017-10-22] MEDS: DIPHENHYDRAMINE CREAM TP PRN (09:21)
--- NOTE | 2017-10-22 09:25 | SOAPPROG ---
SOMALLORY Progress Note Assessment/Plan: Assessment/Plan: - 62yo F s/p lap appy for perfd appendicitis, umb hernia repair - abdomen soft and aTTP. ROYER serosang and minimal output. Will keep through today - Tolerating diet, has decent bowel sounds and is passing flatus. - On Iv abs per ID, anticipate 10-14d per their recommendations - No new recs from surg standpoint, progressing as expected. 10/22/17 09:23 10/22/17 09:24 Subjective: Passing flatus Objective: Vital Signs Temp Pulse Resp BP Pulse Ox 37.0 C 61 16 104/63 94 10/21/17 23:23 10/21/17 23:23 10/21/17 23:23 10/21/17 23:23 10/21/17 23:23 Laboratory Results 10/21/17 06:18 10/21/17 06:18 10/21/17 10/22/17 10/23/17 05:59 05:59 05:59 Intake Total 750 200 Output Total 545 285 Balance 205 -85 PT 13.9 SEC (12.0-15.0) 10/13/17 04:25 INR 1.05 (0.83-1.16) 10/13/17 04:25 ICD10 Worksheet Patient Problems: Problems Problem Status Onset Diverticulitis Acute Cardiomyopathy due to hypertension Acute Chest pain Acute Congestive heart failure Acute Elevated troponin I level Acute Hypertension Acute NICM (nonischemic cardiomyopathy) Acute Ventricular arrhythmia Acute
[2017-10-22 10:57] LABS: PLATELET COUNT 314 10^3/uL (150-400)
[2017-10-22] MEDS: ENOXAPARIN 40 MG/0.4 ML SYR SC SCH (15:05)
--- NOTE | 2017-10-22 16:22 | ASMTCMCOM ---
CM Note CM Note Notes: DC plan still TBD but seeming like pt will likely need SNF, CM discussed this w/Dr vieira today. Met w/pt to discuss but pt said she could not discuss at this time due to pain/discomfort. Notified her RN. We briefly talked about [employer] and she said she needs to look into it more. CM will meet w/pt again in AM to discuss. Date Signed: 10/22/2017 04:22 PM Electronically Signed By:Irene Gagnon RN
--- NOTE | 2017-10-22 17:18 | HOSPPROG ---
Hospitalist Progress Note Assessment/Plan: Assessment: 62-year-old female presents with acute diverticulitis and perforated appendix with abscess complicated by incarcerated umbilical hernia Plan: 1. Diverticulitis. Acute, improved 2. Chronic systolic congestive heart failure. Nonischemic, ejection fraction 30%, no recent anginal symptoms -cont home coerg, ARB, lasix -monitor volume status closely, strict I&Os, daily weights 3. Ventricular tachycardia. Chronic, status post AICD placement -continue monitor on telemetry, personally interpreted, in NSR 4. DEE on Chronic kidney disease stage III. Patient's serum creatinine level has ranged between 1.6 and 1.9 during this hospitalization, currently elevated at 2.1 -continue monitor daily -likely 2/2 hypovolemia in setting of low PO intake, give IVF while on clears and repeat Cr in AM 5. Adrenal adenoma. Per abdominal imaging, outpatient workup 6. Possible undiagnosed mental health illness. Psychiatry consultation requested by Dr. Timmons 7. Incarcerated umbilical hernia. Omental fat incarceration, POD#2 repair, also has R inguinal hernia, will require subsequent repair 8. Perforated appendix with abscess. Suspect POA, suspect that her symptoms of infxn prior to presentation were the beginning of her appendicitis and then abscess formation -s/p surgical appy by Dr. Rothman POD#2 -requiring ongoing ROYER drain, unclear duration, output slowing -pain mgmt w/ PO/IV PRN, encourage use of PO dilaudid prior to bed -per ID, recommend 10-14 days IV abx (likely invanz, given absence of cx data), and would rec either home of infusion center, d/w case mgmt 9. Acutely worsening abdominal pain. Patient reports similar to presentation, that said, HR 60s, responsive to pain Rx, but no BMs -d/w Dr. Wren, he recommends 2 view abd x-ray to eval for ileus vs. SBO -de-escalate diet to clears -cont PRN Rx, avoid NSAIDs given DEE Diet. clears smoothies Prophylaxis. High risk patient, currently SCDs, pharm recommended to patient Code. Full Despite. Anticipated discharge uncertain this time, worsening abd pain today Subjective: worsening abd pain, no BMs Objective: Vital Signs Temp Pulse Resp BP Pulse Ox 36.9 C 63 12 96/59 L 99 10/22/17 14:25 10/22/17 14:25 10/22/17 14:25 10/22/17 14:25 10/22/17 14:25 Laboratory Results 10/22/17 10:40 10/22/17 10:40 10/21/17 10/22/17 10/23/17 05:59 05:59 05:59 Intake Total 750 200 Output Total 545 285 600 Balance 205 -85 -600 PT 13.9 SEC (12.0-15.0) 10/13/17 04:25 INR 1.05 (0.83-1.16) 10/13/17 04:25 - Physical Exam Constitutional: appears nourished, uncomfortable, No not in pain (moderate), No obese Cardiovascular: systolic murmur (II. at LSB), edema (trace bilat LE), No irregularly irregular, No tachycardia Respiratory: reduced air movement (poor insp effort), No expiratory wheeze, No inspiratory crackles, No bronchial breath sounds, No respiratory distress Gastrointestinal: tenderness (moderate to mild depth palpation), No normoactive bowel sounds (hypoactive bowel sounds), No guarding, No distension Skin: other (no erythema around surg site), No abrasion, No induration, No fluctuance Neurologic: AAOx3 Psychiatric: interacting appropriately, not anxious, not encephalopathic, thought process linear, No agitated ICD10 Worksheet Patient Problems: Problems Problem Status Onset Diverticulitis Acute Cardiomyopathy due to hypertension Acute Chest pain Acute Congestive heart failure Acute Elevated troponin I level Acute Hypertension Acute NICM (nonischemic cardiomyopathy) Acute Ventricular arrhythmia Acute
[2017-10-22] MEDS: HYDROmorphONE/DILAUDID 1 MG/ML INJ IVP PRN (18:06)
[2017-10-22] MEDS: PANTOPRAZOLE SODIUM 40 MG VIAL IVP SCH (18:07)
[2017-10-22] MEDS: Febuxostat [Uloric] 40 MG PO SCH (20:06)
[2017-10-22] MEDS: ROSUVASTATIN CALCIUM 10 MG TAB PO SCH (20:07)
[2017-10-23 05:54] LABS: PLATELET COUNT 361 10^3/uL (150-400)
[2017-10-23] MEDS: HYDROmorphONE/DILAUDID 2 MG TAB PO PRN ×3 (06:05→20:18)
[2017-10-23] MEDS ORDERED: ERTAPENEM 1 GM VIAL IVP SCH (09:00)
[2017-10-23] MEDS: FUROSEMIDE 20 MG TAB PO SCH ×2 (09:19→16:09)
--- NOTE | 2017-10-23 09:30 | SOAPPROG ---
SOAP Progress Note Assessment/Plan: Assessment/Plan: - 62yo F s/p lap appy for perforated appendicitis, incarcerated umb hernia repair. konrad has RIH, but this not repaired. - abdomen soft and aTTP. ROYER serosang and minimal output. Plan to d/c ROYER drain before d/c. - ileus. n/v yesterday with complaints of acute pain. AXR showing ileus vs obstruction. n/v resolved today and +BMs. encourage clears and smoothies--she says she won't do sugary juices or salty broth. will try smoothie. if tolerates then advance diet. - On Iv abs per ID, anticipate 10-14d per their recommendations - No new recs from surg standpoint, progressing as expected. Dispo: consider SNF. S: n/v resolved. pain is better. nervous about managing PICC and abx. +BMs yesterday. wants to eat. O: alert, nad ncat no wob abd soft, inc cdi, drain scant serosanguinous 10/23/17 09:26 Objective: Vital Signs Temp Pulse Resp BP Pulse Ox 36.7 C 66 12 116/63 96 10/23/17 07:21 10/23/17 07:21 10/23/17 07:21 10/23/17 07:21 10/23/17 07:21 Laboratory Results 10/23/17 05:35 10/23/17 05:35 10/22/17 10/23/17 10/24/17 05:59 05:59 05:59 Intake Total 200 600 Output Total 285 600 Balance -85 0 PT 13.9 SEC (12.0-15.0) 10/13/17 04:25 INR 1.05 (0.83-1.16) 10/13/17 04:25 ICD10 Worksheet Patient Problems: Problems Problem Status Onset Diverticulitis Acute Cardiomyopathy due to hypertension Acute Chest pain Acute Congestive heart failure Acute Elevated troponin I level Acute Hypertension Acute NICM (nonischemic cardiomyopathy) Acute Ventricular arrhythmia Acute
[2017-10-23] MEDS: PANTOPRAZOLE SODIUM 40 MG VIAL IVP SCH (10:59)
[2017-10-23] MEDS: CARVEDILOL 25 MG TAB PO SCH ×2 (11:51→19:36)
[2017-10-23] MEDS: ASPIRIN EC 81 MG TAB PO SCH (11:52)
[2017-10-23] MEDS: FLUTICASONE NASAL 120 SPRAYS/16 GM MDI EACHNARE SCH (11:53)
[2017-10-23] MEDS: ENOXAPARIN 40 MG/0.4 ML SYR SC SCH (11:57)
[2017-10-23] MEDS: LOSARTAN POTASSIUM 50 MG TAB PO SCH (11:58)
--- NOTE | 2017-10-23 14:28 | ASMTCMCOM ---
CM Note CM Note Notes: 10/23/2017 Case Management Note Met w/pt to discuss continued PT recommendations for SNF rehab. Tori from [email or web address] visited with pt and accepted pt if needed. Pt does not have family support to help in the home at d/c. recommending prototype special build and PT. Case Management sent referrals for IV infusion services for d/c antibiotic needs. Per pt to visit wound clinic for wound care needs after d/c. [facility] is tentative home care agency. Provided clothes to pt from case management supply. Case Management d/c poc: Home with home care and IV antibiotics vs. SNF rehab. Case Management to follow. Date Signed: 10/23/2017 02:27 PM Electronically Signed By:Rachel Fields RN
--- NOTE | 2017-10-23 14:37 | ASMTCMCOM ---
CM Note CM Note Notes: 10/23/2017 Case Management Note Pt primary care provider is through [facility]: Dr. Keturah Murcia. [phone] [facility] [place] [id number] Date Signed: 10/23/2017 02:36 PM Electronically Signed By:Rachel Fields RN
[2017-10-23] MEDS ORDERED: FUROSEMIDE 20 MG TAB PO SCH (16:11)
--- NOTE | 2017-10-23 16:20 | HOSPPROG ---
Hospitalist Progress Note Assessment/Plan: Assessment: 62-year-old female presents with acute diverticulitis and perforated appendix with abscess complicated by incarcerated umbilical hernia and post-op ileus Plan: # Diverticulitis. Acute, improved # Perforated appendix with abscess. Suspect POA, suspect that her symptoms of infxn prior to presentation were the beginning of her appendicitis and then abscess formation -s/p surgical appy by Dr. Rothman POD#3 -requiring ongoing ROYER drain, unclear duration, output slowing -pain mgmt w/ PO/IV PRN, encourage use of PO dilaudid prior to bed -per ID, recommend 10-14 days IV abx (likely invanz, given absence of cx data), and would rec either home, SNF, or infusion center, d/w case mgmt # Incarcerated umbilical hernia. Omental fat incarceration, POD#3 repair, also has R inguinal hernia, will require subsequent repair -umbilical wound care at Dr. Rothman' office as outpt # Post-op ileus. Acute, present on abd x-ray, tolerating diet today -d/w Dr. Wren, adv diet slowly w/ light today # Chronic systolic congestive heart failure. Nonischemic, ejection fraction 30% , no recent anginal symptoms -cont home coreg, increase lasix to 40mg bid this afternoon given increased LE edema -holding ARB given elevated Cr -monitor volume status closely, strict I&Os, daily weights # DEE on Chronic kidney disease stage III. Patient's serum creatinine level has ranged between 1.6 and 1.9 during this hospitalization, currently elevated at 2.1, likely 2/2 reduced renal perfusion in setting of poor PO intake -continue monitor daily -holding ARB -allow her volume to equilibrate w/ PO intake today, gauge whether more active diuresis improves cardiac output and forward flow # Ventricular tachycardia. Chronic, status post AICD placement -continue monitor on telemetry, in NSR # Adrenal adenoma. Per abdominal imaging, outpatient workup # Possible undiagnosed mental health illness vs. strong personality traits. I believe that patient expresses strong personality traits but does not have an overt personality disorder; that said, she does demonstrate a degree of splitting and volatility, but this may just be traits exacerbated by stressful inpt episode of care Diet. Adv to light, smoothies Prophylaxis. High risk patient, currently SCDs, Hep SC recommended to patient Code. Full Despite. Anticipated discharge uncertain this time, renal fxn remains impaired and becoming more edematous Subjective: patient hungry, passing flatus, no BM Objective: Vital Signs Temp Pulse Resp BP Pulse Ox 36.6 C 67 22 H 101/65 94 10/23/17 11:23 10/23/17 11:23 10/23/17 11:23 10/23/17 11:23 10/23/17 11:23 Laboratory Results 10/23/17 05:35 10/23/17 05:35 10/22/17 10/23/17 10/24/17 05:59 05:59 05:59 Intake Total 200 600 250 Output Total 285 600 300 Balance -85 0 -50 PT 13.9 SEC (12.0-15.0) 10/13/17 04:25 INR 1.05 (0.83-1.16) 10/13/17 04:25 - Physical Exam Constitutional: no apparent distress, not in pain, uncomfortable, No chronically ill appearing Cardiovascular: systolic murmur (II/ sternum and apex), edema (1+ bilat LE), No irregularly irregular, No tachycardia Respiratory: reduced air movement (poor insp effort), No expiratory wheeze, No inspiratory crackles, No bronchial breath sounds Gastrointestinal: normoactive bowel sounds, tenderness (mild to mod depth palpation throughout), distension (mild), No guarding Skin: other (umbilical wound w/ packing), No abrasion, No erythema, No induration, No fluctuance Neurologic: AAOx3, sensation intact bilaterally, No weakness Psychiatric: interacting appropriately, not anxious, not encephalopathic, thought process linear ICD10 Worksheet Patient Problems: Problems Problem Status Onset Chest pain Acute Ventricular arrhythmia Acute Cardiomyopathy due to hypertension Acute Hypertension Acute Congestive heart failure Acute NICM (nonischemic cardiomyopathy) Acute Elevated troponin I level Acute Diverticulitis Acute
[2017-10-23] MEDS ORDERED: FUROSEMIDE 20 MG TAB PO ONE ×2 (16:30→19:00)
[2017-10-23] MEDS ORDERED: CEPACOL LOZENGE PO PRN (17:39)
--- NOTE | 2017-10-23 20:01 | PCMIDPN ---
Assessment/Plan: Assessment/Plan: * Perforated appendicitis with periappendiceal abscess status post appendectomy and abscess drainage: Slow clinical improvement was some residual abdominal discomfort. Continue ertapenem with anticipated 10-14 day course post appendectomy and drainage of abscess. Case management continue to work on discharge planning and outpatient IV antibiotic therapy. * Umbilical hernia: Status post operative repair. Time spent, 25 min, of which greater than half was spent in coordination of care related to periappendiceal abscess and anticipated course of IV antibiotic therapy. Clinical findings and plan were reviewed with patient and Dr. Enrique. 10/23/17 19:58 10/23/17 19:59 Subjective: Patient complains of bilateral lower quadrant abdominal pain. Had a bowel movement earlier today. Objective: Vital Signs Temp Pulse Resp BP Pulse Ox 36.9 C 70 22 H 130/63 H 92 10/23/17 16:00 10/23/17 16:00 10/23/17 16:00 10/23/17 16:00 10/23/17 16:00 Laboratory Results 10/23/17 05:35 10/23/17 05:35 10/22/17 10/23/17 10/24/17 05:59 05:59 05:59 Intake Total 200 600 450 Output Total 285 600 300 Balance -85 0 150 ESR 97 MM/HR (0-30) H 10/14/17 03:34 C-Reactive Protein 412.1 mg/L (<10.0) H 10/14/17 03:34 Ertapenem # 11 - Physical Exam General Appearance: alert, no apparent distress EENT: No scleral icterus, No thrush Respiratory: lungs clear, No respiratory distress Cardiac/Chest: regular rate, rhythm Abdomen: tender (Bilateral lower quadrants) - Line/s RUE PICC Lines: No drainage, No erythema ICD10 Worksheet Patient Problems: Problems Problem Status Onset Diverticulitis Acute Cardiomyopathy due to hypertension Acute Chest pain Acute Congestive heart failure Acute Elevated troponin I level Acute Hypertension Acute NICM (nonischemic cardiomyopathy) Acute Ventricular arrhythmia Acute
[2017-10-23] MEDS: ROSUVASTATIN CALCIUM 10 MG TAB PO SCH (20:18)
[2017-10-23] MEDS: Febuxostat [Uloric] 40 MG PO SCH (21:06)
[2017-10-24 06:16] LABS: PLATELET COUNT 380 10^3/uL (150-400)
[2017-10-24] MEDS: PANTOPRAZOLE SODIUM 40 MG VIAL IVP SCH (07:55)
[2017-10-24] MEDS: HYDROmorphONE/DILAUDID 2 MG TAB PO PRN ×4 (07:57→21:33)
[2017-10-24] MEDS: ASPIRIN EC 81 MG TAB PO SCH (07:58)
[2017-10-24] MEDS: CARVEDILOL 25 MG TAB PO SCH ×2 (07:59→17:30)
[2017-10-24] MEDS: FUROSEMIDE 40 MG TAB PO SCH ×2 (08:00→16:12)
[2017-10-24] MEDS: FLUTICASONE NASAL 120 SPRAYS/16 GM MDI EACHNARE SCH (08:12)
[2017-10-24] MEDS: HEPARIN 5,000 UNIT/0.5 ML SYR SC SCH ×3 (08:12→20:29)
[2017-10-24] MEDS: ERTAPENEM IV SCH (09:03)
[2017-10-24] MEDS: NS IV SCH (09:03)
--- NOTE | 2017-10-24 10:55 | PCMIDPN ---
Assessment/Plan: Assessment/Plan: 1. Perforated appendicitis with abscess: s/p appy -s/p appy on 10/20/17 - Currently on renal dose Invanz -wbc stable. creatinine 1.9 -Continues with abd pain - Plan is for 14 days treatment. - care coordinated with RN who had some concerns about if patient could care for herself well enough at home -pt refusing SNF -Discussed with case management. Looking into options. - care coordinated with hospitalist team. 2. Umbilical hernia : sp repair MEds invanz 500mg daily - 10/15/17 (previously given 1g dosing on 10/13 and 10/14/17) Subjective: afebrile. still c/o abd pain. denies nausea. refusing heparin injections per RN. EAting better now. denies sob. loose stools Objective: Vital Signs Temp Pulse Resp BP Pulse Ox 37.1 C 80 16 130/82 H 90 L 10/24/17 07:21 10/24/17 07:59 10/24/17 07:21 10/24/17 07:59 10/24/17 07:21 Laboratory Results 10/24/17 06:05 10/24/17 06:05 10/23/17 10/24/17 10/25/17 05:59 05:59 05:59 Intake Total 600 850 Output Total 600 300 Balance 0 550 ESR 97 MM/HR (0-30) H 10/14/17 03:34 C-Reactive Protein 412.1 mg/L (<10.0) H 10/14/17 03:34 - Physical Exam General Appearance: WD/WN, no apparent distress Respiratory: lungs clear Cardiac/Chest: regular rate, rhythm Extremities: No swelling Abdomen: normal bowel sounds, soft, tender (especially in lower quadrants) Skin: No erythema ICD10 Worksheet Patient Problems: Problems Problem Status Onset Diverticulitis Acute Cardiomyopathy due to hypertension Acute Chest pain Acute Congestive heart failure Acute Elevated troponin I level Acute Hypertension Acute NICM (nonischemic cardiomyopathy) Acute Ventricular arrhythmia Acute
--- NOTE | 2017-10-24 12:48 | SOAPPROG ---
SOAP Progress Note Assessment/Plan: Assessment/Plan: 62yo F s/p lap appy for perforated appendicitis, incarcerated umb hernia repair. also has RIH, but this not repaired. Ileus resolved. Now tolerating regular diet. ROYER drain removed. IV abx via PICC as outpatient per ID. No surgical CI to d/c at this point. Will add into to d/c plan. Dispo: Patient refusing SNF per our conversation. Wants C. S: eating. less pain. no n/v. plans to shower today O: alert, nad ncat no wob abd soft, inc cdi, drain removed, site clean 10/24/17 12:45 Objective: Vital Signs Temp Pulse Resp BP Pulse Ox 37.1 C 80 16 130/82 H 90 L 10/24/17 07:21 10/24/17 07:59 10/24/17 07:21 10/24/17 07:59 10/24/17 07:21 Laboratory Results 10/24/17 06:05 10/24/17 06:05 10/23/17 10/24/17 10/25/17 05:59 05:59 05:59 Intake Total 600 850 Output Total 600 300 Balance 0 550 PT 13.9 SEC (12.0-15.0) 10/13/17 04:25 INR 1.05 (0.83-1.16) 10/13/17 04:25 ICD10 Worksheet Patient Problems: Problems Problem Status Onset Diverticulitis Acute Cardiomyopathy due to hypertension Acute Chest pain Acute Congestive heart failure Acute Elevated troponin I level Acute Hypertension Acute NICM (nonischemic cardiomyopathy) Acute Ventricular arrhythmia Acute
--- NOTE | 2017-10-24 14:30 | HOSPPROG ---
Hospitalist Progress Note Assessment/Plan: Assessment: 62-year-old female w perforated appendix with abscess complicated by incarcerated umbilical hernia and post-op ileus Plan: Perforated appendix with abscess. Suspect POA, suspect that her symptoms of infxn prior to presentation were the beginning of her appendicitis and then abscess formation s/p surgical appy by Dr. Rothman POD#4 requiring ongoing ROYER drain, unclear duration, output slowing pain mgmt w/ PO/IV PRN, encourage use of PO dilaudid prior to bed per ID, recommend 10-14 days IV abx (likely invanz, given absence of cx data) , and would rec either home, SNF, or infusion center, d/w case mgmt has picc Incarcerated umbilical hernia. Omental fat incarceration, POD#4 repair, also has R inguinal hernia, will require subsequent repair Post-op ileus. resolved Chronic systolic congestive heart failure. Nonischemic, ejection fraction 30%, no recent anginal symptoms cont home coreg, increase lasix to 40mg bid this afternoon given increased LE edema holding ARB given elevated Cr monitor volume status closely, strict I&Os, daily weights DEE on Chronic kidney disease stage III. approaching baseline euvolemic Ventricular tachycardia. Chronic, status post AICD placement dc tele Adrenal adenoma. Per abdominal imaging, outpatient workup Diet. Adv to light, smoothies Prophylaxis. High risk patient, currently SCDs, Hep SC recommended to patient Code. Full Subjective: case d/w dr flynn. refused SNF- she has worked in one in past Objective: Vital Signs Temp Pulse Resp BP Pulse Ox 37.1 C 80 16 130/82 H 77 L 10/24/17 07:21 10/24/17 07:59 10/24/17 07:21 10/24/17 07:59 10/24/17 11:55 Laboratory Results 10/24/17 06:05 10/24/17 06:05 10/23/17 10/24/17 10/25/17 05:59 05:59 05:59 Intake Total 600 850 Output Total 600 300 Balance 0 550 PT 13.9 SEC (12.0-15.0) 10/13/17 04:25 INR 1.05 (0.83-1.16) 10/13/17 04:25 - Physical Exam Constitutional: no apparent distress, appears nourished Eyes: PERRL, anicteric sclera Ears, Nose, Mouth, Throat: moist mucous membranes, hearing normal Cardiovascular: regular rate and rhythym, no murmur, rub, or gallop Respiratory: no respiratory distress, no rales or rhonchi Gastrointestinal: normoactive bowel sounds, soft, non-tender abdomen, No guarding, No rebound Genitourinary: no bladder fullness, No rojo in urethra Skin: warm, normal color Musculoskeletal: full muscle strength, no muscle tenderness Neurologic: AAOx3 ICD10 Worksheet Patient Problems: Problems Problem Status Onset Diverticulitis Acute Cardiomyopathy due to hypertension Acute Chest pain Acute Congestive heart failure Acute Elevated troponin I level Acute Hypertension Acute NICM (nonischemic cardiomyopathy) Acute Ventricular arrhythmia Acute
--- NOTE | 2017-10-24 16:34 | ASMTCMCOM ---
CM Note CM Note Notes: 10/24/2017 Case Management Note Met w/pt multiple times today. Pt upset by visits from sales reps from infusion companies. Pt feels the process of home infusion is to challenging for her. Pt has co pay that is approximately $15/day for home infusions. Pt is unable to afford cost even with payment plan. Notified infusion companies of pt refusal to have home infusions. Arranged for infusions at the outpatient infusion center on [address]. Set up appointment at 1400 every day through 11/[address] Rodriguez. Pt has transportation difficulties. Case Management will call [facility] or [facility] on Monday to arrange transport every day for infusions. Pt may still require home care PT and wound care. [facility] pt previously in the week. Case Management d/c poc: outpatient infusion center for IV antibiotics. Case Management to follow. Date Signed: 10/24/2017 04:34 PM Electronically Signed By:Rachel Fields RN
[2017-10-24] MEDS: ROSUVASTATIN CALCIUM 10 MG TAB PO SCH (20:26)
[2017-10-24] MEDS: Febuxostat [Uloric] 40 MG PO SCH (20:30)
[2017-10-25] MEDS: HEPARIN 5,000 UNIT/0.5 ML SYR SC SCH ×2 (05:11→15:36)
[2017-10-25 06:22] LABS: PLATELET COUNT 410 10^3/uL (150-400)
[2017-10-25] MEDS: FUROSEMIDE 40 MG TAB PO SCH ×2 (06:43→15:33)
[2017-10-25] MEDS: NS IV SCH (08:37)
[2017-10-25] MEDS: ERTAPENEM IV SCH (08:37)
[2017-10-25] MEDS: HYDROmorphONE/DILAUDID 2 MG TAB PO PRN ×2 (08:38→15:33)
[2017-10-25] MEDS: CARVEDILOL 25 MG TAB PO SCH (08:40)
[2017-10-25] MEDS: ASPIRIN EC 81 MG TAB PO SCH (08:40)
[2017-10-25] MEDS: FLUTICASONE NASAL 120 SPRAYS/16 GM MDI EACHNARE SCH (08:43)
[2017-10-25] MEDS ORDERED: PANTOPRAZOLE SODIUM 40 MG TAB PO SCH (09:00)
[2017-10-25] MEDS ORDERED: LOSARTAN POTASSIUM 50 MG TAB PO SCH (09:00)
--- NOTE | 2017-10-25 13:39 | HOSPPROG ---
Hospitalist Progress Note Assessment/Plan: Assessment: 62-year-old female w perforated appendix with abscess complicated by incarcerated umbilical hernia and post-op ileus Plan: Perforated appendix with abscess. Suspect POA, suspect that her symptoms of infxn prior to presentation were the beginning of her appendicitis and then abscess formation s/p surgical appy by Dr. Rothman POD#5 requiring ongoing ROYER drain, unclear duration, output slowing pain mgmt w/ PO/IV PRN, encourage use of PO dilaudid prior to bed per ID, recommend 10-14 days IV abx (likely invanz, given absence of cx data) , and would rec either home, SNF, or infusion center, d/w case mgmt has picc Incarcerated umbilical hernia. Omental fat incarceration, POD#5 repair, also has R inguinal hernia, will require subsequent repair Post-op ileus. resolved Chronic systolic congestive heart failure. Nonischemic, ejection fraction 30%, no recent anginal symptoms cont home coreg, increase lasix to 40mg bid this afternoon given increased LE edema holding ARB given elevated Cr monitor volume status closely, strict I&Os, daily weights DEE on Chronic kidney disease stage III. approaching baseline euvolemic Ventricular tachycardia. Chronic, status post AICD placement dc tele Adrenal adenoma. Per abdominal imaging, outpatient workup home today > 30 minutes outpt abx setup Subjective: perseverating on dc plan. ok to go by surgery and ID Objective: Vital Signs Temp Pulse Resp BP Pulse Ox 36.9 C 75 18 131/79 H 96 10/25/17 08:00 10/25/17 08:40 10/25/17 08:00 10/25/17 08:40 10/25/17 08:00 Laboratory Results 10/25/17 06:00 10/25/17 06:00 10/24/17 10/25/17 10/26/17 05:59 05:59 05:59 Intake Total 850 450 Output Total 300 Balance 550 450 PT 13.9 SEC (12.0-15.0) 10/13/17 04:25 INR 1.05 (0.83-1.16) 10/13/17 04:25 - Physical Exam Constitutional: no apparent distress Eyes: PERRL, anicteric sclera Ears, Nose, Mouth, Throat: moist mucous membranes, hearing normal Cardiovascular: regular rate and rhythym, no murmur, rub, or gallop Respiratory: no respiratory distress, no rales or rhonchi Gastrointestinal: normoactive bowel sounds, soft, non-tender abdomen Genitourinary: no bladder fullness, No rojo in urethra Skin: warm, normal color Musculoskeletal: full muscle strength, no muscle tenderness Neurologic: AAOx3 Psychiatric: interacting appropriately ICD10 Worksheet Patient Problems: Problems Problem Status Onset Diverticulitis Acute Cardiomyopathy due to hypertension Acute Chest pain Acute Congestive heart failure Acute Elevated troponin I level Acute Hypertension Acute NICM (nonischemic cardiomyopathy) Acute Ventricular arrhythmia Acute
[2017-10-25 14:17] VITALS: BP 131/72; PULSE 80; RESP 16; TEMP 98.1; O2SAT 90
--- NOTE | 2017-10-25 14:40 | PDIAF ---
- Diagnosis Diagnosis: ruptured appendicitis Code Status: Full Code - Medication Management Discharge Medications: Medications to Continue on Transfer Febuxostat [ULORIC] 40 mg PO HS 11/20/16 [Last Taken 10/12/17] Furosemide [Lasix 20 MG (*)] 20 mg PO BID AT 7AM AND 3PM 01/27/17 [Last Taken ] Aspirin EC [Aspirin EC 81 mg (*)] 81 mg PO DAILY #30 tab 01/30/17 [Last Taken ] Albuterol [Proventil Inhaler HFA (*)] 1 - 2 puffs IH Q4H PRN 10/13/17 [Last Taken Unknown] Carvedilol [Coreg (*)] 25 mg PO BIDMEAL 10/13/17 [Last Taken 10/12/17] Fluticasone Nasal [Flonase Nasal [place]] 1 sprays NASAL DAILY 10/13/17 [Last Taken Unknown] Losartan Potassium [Cozaar 50 mg (*)] 50 mg PO DAILY 10/13/17 [Last Taken ] Rosuvastatin Calcium [Crestor] 10 mg PO HS 10/13/17 [Last Taken 10/11/17] Ertapenem [INVanz] 1 gm IVP DAILY vial 10/25/17 [Last Taken Unknown] HYDROmorphone HCL [Dilaudid 2 mg (*)] 2 - 4 mg PO Q4HRS PRN #20 tab 10/25/17 [ Last Taken Unknown] Alf Antibiotics: ertapenem Discharge Medications: Refer to the Discharge Home Medication list for PRN reason. - Orders Services needed: Home Care, Registered Nurse, Master Specialty Finishing Utility Person, Physical Therapy, Occupational Therapy Home Care Face to Face: I certify that this patient was under my care and that I had the required [id number] encounter meeting the encounter requirements on the discharge day. My findings support the fact that the patient is homebound as defined in Home Care Face to Face Continued: CMS Chapter 7 Medicare Benefits Manual 30.1.1 , The condition of the patient is such that there exists a normal inability to leave home and consequently, leaving home would require a considerable and taxing effort. Diet Texture: Regular Texture Diet - Follow Up Care Current Providers and Referrals: Gian Rothman MD [Medical Doctor] - follow up in 2 weeks Patient,NotPresent [Unknown] - As per Instructions
[2017-10-25] MEDS ORDERED: DIPHENHYDRAMINE CREAM TP SCH (15:55)
[2017-10-25] MEDS ORDERED: FLUTICASONE NASAL 120 SPRAYS/16 GM MDI EACHNARE SCH (16:00)
--- NOTE | 2017-10-26 04:51 | GDS ---
[f rep st] DISCHARGE SUMMARY DISCHARGE DIAGNOSES: 1. Incarcerated umbilical hernia. 2. Appendicitis with appendiceal abscess. 3. Likely dementia. 4. Inguinal hernia, reducible, with plans for future intervention. 5. Hyperlipidemia. 6. Ischemic cardiomyopathy with systolic congestive heart failure, ejection fraction of 30% to 35%, status post implantable cardioverter defibrillator. 7. Coronary artery disease. 8. Gout. 9. Chronic kidney disease. Baseline creatinine 1.8 to 1.2. 10. Diverticulosis. HOSPITAL COURSE: Please see admission history and physical by both Janelle Vera and Vinod Landa. The patient presented on the . She was followed with abdominal pain. She had a CT a couple day s later after having one in the ER showing pericecal inflammatory phlegmon. She subsequently went to the OR with Dr. Rothman revealing appendiceal abscess with incarcerated abdominal hernia. Her protrac vicente recovery from surgery included a small bowel obstruction felt secondary to internal hernia that r esolved without intervention. Given her abscess, the plan was for a 14-day course of ertapenem. The patient was discharged home with outpatient arrangement for antibiotics. She also had home care, [facility] PT/OT, etc., arranged for her at home. The patient felt was felt most appropriate for SNF. She d eclined this. /[id number]/MODSepideh
[2017-10-26] MEDS ORDERED: ERTAPENEM 1 GM VIAL IVP SCH (09:00)
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
== END 2017-10-25 17:30 | disposition home or self-care (01) | DRG 341 ==
LOC: EDUNIT# → EEVIPCON 05:39 → F2W 08:42
PROVIDERS: ADMIT Family Medicine; ATTEND Internal Medicine
PROC: 02HV33Z Insertion of Infusion Device into Superior Vena Cava, Percutaneous Approach (ICD-10-PCS; 2017-10-16)
PROC: 0DTJ0ZZ Resection of Appendix, Open Approach (ICD-10-PCS; principal; 2017-10-21)
PROC: 0WQF0ZZ Repair Abdominal Wall, Open Approach (ICD-10-PCS; principal; 2017-10-21)
DX: K42.0 Umbilical hernia with obstruction, without gangrene (principal); K35.3 Acute appendicitis with localized peritonitis; K40.90 Unilateral inguinal hernia, without obstruction or gangrene, not specified as recurrent; I25.5 Ischemic cardiomyopathy; I50.22 Chronic systolic (congestive) heart failure; I13.0 Hypertensive heart and chronic kidney disease with heart failure and stage 1 through stage 4 chronic kidney disease, or unspecified chronic kidney disease; N17.9 Acute kidney failure, unspecified; N18.3 Chronic kidney disease, stage 3 (moderate); K57.30 Diverticulosis of large intestine without perforation or abscess without bleeding; E87.2 Acidosis; D35.00 Benign neoplasm of unspecified adrenal gland; E78.5 Hyperlipidemia, unspecified; I25.10 Atherosclerotic heart disease of native coronary artery without angina pectoris; M10.9 Gout, unspecified; R73.9 Hyperglycemia, unspecified; F03.90 Unspecified dementia, unspecified severity, without behavioral disturbance, psychotic disturbance, mood disturbance, and anxiety; Z95.810 Presence of automatic (implantable) cardiac defibrillator; Z72.0 Tobacco use
CPT/HCPCS: 96374; 97110-GP; 97116-GP; 97161-GP; 97165-GO; 97530-GO; 97530-GP; 97532-GO; 97535-GO; C1727; C1751; G0008; G8978-GP-CK; G8979-GP-CI; G8980-GP-CI; G8987-GO-CJ; G8988-GO-CI; J1170; J1335; J1650; J1940; J2250; J2405; J2704; J3010; Q9967

== ENCOUNTER 2017-12-15 23:38 | Emergency (ER) | payer OTHER, MEDICAID ==
[2017-12-16 00:10] LABS: PLATELET COUNT 200 10^3/uL (150-400)
[2017-12-16 00:17] VITALS: RESP 16; TEMP 98.6; O2SAT 98
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
[2017-12-16 02:22] VITALS: BP 128/88; PULSE 70
== END 2017-12-16 02:22 | disposition home or self-care (01) ==
LOC: EDUNIT#
DX: J70.5 Respiratory conditions due to smoke inhalation (principal); F17.200 Nicotine dependence, unspecified, uncomplicated; E11.9 Type 2 diabetes mellitus without complications; I11.0 Hypertensive heart disease with heart failure; I50.9 Heart failure, unspecified; Z79.82 Long term (current) use of aspirin
CPT/HCPCS: 80305; G0480

== ENCOUNTER 2018-01-19 09:02 | Emergency (ER) | payer OTHER, MEDICAID ==
[2018-01-19 09:19] VITALS: BP 136/85
--- NOTE | 2018-01-19 10:05 | EDPHY ---
HPI/HX/ROS/PE/MDM Narrative: CHIEF COMPLAINT: Dental pain HPI: The patient is a 62 y/o female complaining of several weeks of right upper molar pain. She has seen a dentist and oral surgeon for this and was most recently evaluated by an oral surgeon yesterday in [place]. She was prescribed clindamycin for infection and referred back to a dentist for treatment. The patient has not filled this prescription yet and is unhappy with her current dentist so has not scheduled that appointment yet either. She says, "I came here because I'm not able to sleep and I'm trying to get into the dentist." No other acute symptoms. REVIEW OF SYSTEMS: Aside from elements discussed in the HPI, a comprehensive 10-point review of systems was reviewed and is negative. PMH: Nonischemic cardiomyopathy last EF of 30-35% Nov. 2016; hypertension; hyperlipidemia; tobacco abuse; chronic kidney disease stage 3; history of steroid-induced diabetes; diverticulitis; colon polyps; gout SOCIAL HISTORY: Narcotic caution from 2013 notes patient should be getting pain management only through her PCP. PHYSICAL EXAM: General:Patient is alert, in no acute distress. ENT:Eyes are normal to inspection. ENT inspection shows diffuse dental caries, no abscess. Neck: Normal inspection. Full range of motion. Respiratory:No respiratory distress. Breath sounds normal bilaterally. Neuro: Oriented x3. Normal motor function. Normal sensory function. ED Course: This is a 62 y/o female on a narcotic caution who presents with several weeks of right upper molar pain that is being followed by her dentist and oral surgeon. She has not filled the doxycycline she was prescribed yesterday nor followed up with her dentist for this yet. She has diffuse dental caries with no evidence of abscess on exam. No signs of acute systemic illness. I advised her to fill her clindamycin and follow up with a dentist as soon as possible and use NSAIDs if needed for pain as we are unable to prescribe narcotics for her here. She understands discharge plan. General Time Seen by Provider: 01/19/18 09:35 Initial Vital Signs: Initial Vital Signs Temperature (C) 36.6 C 01/19/18 09:17 Heart Rate 86 01/19/18 09:17 Respiratory Rate 18 01/19/18 09:17 Blood Pressure 136/85 H 01/19/18 09:17 O2 Sat (%) 95 01/19/18 09:17 O2 Delivery Mode Room Air Allergies/Adverse Reactions: ketorolac tromethamine [From Toradol] Allergy (Intermediate, Verified 10/13/17 04:36) tramadol Allergy (Intermediate, Verified 10/13/17 04:36) lips and legs "puff up" ketorolac tromethamine Allergy (Unknown, Uncoded 10/24/17 11:17) Home Medications: Medication Instructions Recorded Febuxostat [ULORIC] 40 mg PO HS 11/20/16 Furosemide [Lasix 20 MG (*)] 20 mg PO BID AT 7AM AND 3PM 01/27/17 Aspirin EC [Aspirin EC 81 mg (*)] 81 mg PO DAILY #30 tab 01/30/17 Albuterol [Proventil Inhaler HFA 1 - 2 puffs IH Q4H PRN 10/13/17 (*)] Carvedilol [Coreg (*)] 25 mg PO BIDMEAL 10/13/17 Fluticasone Nasal [Flonase Nasal 1 sprays NASAL DAILY 10/13/17 [place]] Losartan Potassium [Cozaar 50 mg 50 mg PO DAILY 10/13/17 (*)] Rosuvastatin Calcium [Crestor] 10 mg PO HS 10/13/17 Ertapenem [INVanz] 1 gm IVP DAILY vial 10/25/17 HYDROmorphone HCL [Dilaudid 2 mg 2 - 4 mg PO Q4HRS PRN #20 tab 10/25/17 (*)] Departure - Departure Disposition: Home, Routine, Self-Care Clinical Impression: Toothache Condition: Good Instructions: Toothache (ED) Additional Instructions: 1. Take your antibiotics as prescribed. 2. Follow up with a dentist in the next few days. I recommend calling today to schedule this appointment. 3. Use ibuprofen or Tylenol as directed on the packaging as needed for pain. A cold pack applied intermittently to sore areas may also be helpful. Referrals: PEEWEE MELENDEZ [Other] - As per Instructions [facility] [Outside] - As per Instructions Report Scribed for: Miguel Hernandez Report Scribed by: Tashia Caruso Date of Report: 01/19/18 Time of Report: 10:05 Physician Review and Approval Statement: Portions of this note were transcribed by an ED scribe. I personally performed the history, physical exam, and medical decision making; and confirm the accuracy of the information in the transcribed note.
== END 2018-01-19 10:10 | disposition home or self-care (01) ==
DX: K08.89 Other specified disorders of teeth and supporting structures (principal); I10 Essential (primary) hypertension; Z79.82 Long term (current) use of aspirin

== ENCOUNTER 2018-12-21 17:31 | Emergency (ER) | payer OTHER, MEDICAID ==
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
[2018-12-21 20:25] VITALS: BP 190/96
== END 2018-12-21 20:22 | disposition home or self-care (01) ==
LOC: EDSTATUS 17:31
DX: M16.0 Bilateral primary osteoarthritis of hip (principal); I11.0 Hypertensive heart disease with heart failure; I50.9 Heart failure, unspecified
CPT/HCPCS: G0472

== ENCOUNTER → 2019-01-14 | Outpatient (CLI) | payer OTHER, MEDICAID | LOC: FIMAGING 11:18 | PROVIDERS: ATTEND Family Medicine | DX: M16.0 Bilateral primary osteoarthritis of hip (principal) ==

== ENCOUNTER 2019-01-22 02:44 | Emergency (ER) | payer OTHER, MEDICAID ==
[2019-01-22 02:51] VITALS: BP 177/100
[2019-01-22] MEDS ORDERED: IBUPROFEN 600 MG TAB PO ONE (03:13)
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
== END 2019-01-22 04:00 | disposition home or self-care (01) ==
LOC: EDUNIT#
PROC: 0HBNXZZ Excision of Left Foot Skin, External Approach (ICD-10-PCS; principal; 2019-01-22)
DX: T25.222A Burn of second degree of left foot, initial encounter (principal); X12.XXXA Contact with other hot fluids, initial encounter

== ENCOUNTER 2019-01-25 17:53 | Emergency (ER) | payer OTHER, MEDICAID ==
[2019-01-25 17:59] VITALS: BP 175/98
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
[2019-01-25] MEDS ORDERED: HYDROCOD/APAP 5/325 PREPACK#6 BTL TAKEHOME ONE ×2 (18:47→18:51)
--- NOTE | 2019-01-30 07:41 | ASMTCMCOM ---
CM Note CM Note Notes: Late Entry from 01/28/19: Received a CM Consult Order re:pt needing to followup with [facility] ([id number]; fax: [phone]). This CM reached out to pt's listed PCP [facility] and they said pt had an appt with them on 01/25 (the same day pt presented to the ED), but she had canceled it. Pt has an appt w/[facility] on 01/30. CM requested that PC assist pt with following up with the [facility] wound care clinic. CM available for further assistance if needed. Date Signed: 01/30/2019 07:40 AM Electronically Signed By:Davida Horta RN
== END 2019-01-25 18:52 | disposition home or self-care (01) ==
DX: T25.222D Burn of second degree of left foot, subsequent encounter (principal); X12.XXXD Contact with other hot fluids, subsequent encounter